=== PATIENT | male | born 1955 | race Caucasian/White ===

== ENCOUNTER 2017-10-24 14:50 | Inpatient (IN) | payer MEDICARE, MEDICAID ==
[2017-10-24] MEDS ORDERED: Aspirin 81mg Chewable Tab PO STA (14:57)
[2017-10-24] MEDS ORDERED: Morphine Sulfate 4 mg/mL 1mL Syr IV STA ×2 (15:00→17:50)
[2017-10-24] MEDS ORDERED: Morphine Sulfate 2 mg/mL 1mL Syr IV STA (15:00)
--- NOTE | 2017-10-24 15:00 | ED Physician Chart ---
ED Chief Complaint/HPI - Patient Information Date Seen:: 10/24/17 Time Seen:: 14:30 Chief Complaint:: Chest Pain History of Present Illness:: onset x one day of intermittent exertional, pressure localized sternal chest pain with dyspnea; pt denies trauma, H/As, S/T, neck pain, cough, Abd. Pain, A/N /V/D/C, fever, chills, or urinary s/s Allergies:: Allergies Allergy/AdvReac Type Severity Reaction Status Date / Time pcn Allergy Uncoded 02/27/13 16:09 shell fish Allergy Uncoded 02/27/13 16:08 torodol Allergy Uncoded 02/27/13 16:09 Historian:: Patient, EMS Review:: Nurse's Note Reviewed, EMS run form Reviewed ED Review of Systems - Review of Systems General/Constitutional: No fever, No chills, No weight loss, No weakness, No diaphoresis, No edema, No loss of appetite Skin: No skin lesions, No rash, No bruising Head: No headache, No light-headedness Eyes: No loss of vision, No pain, No diplopia ENT: No earache, No nasal drainage, No sore throat, No tinnitus Neck: No neck pain, No swelling, No thyromegaly, No stiffness, No mass noted Cardio Vascular: Chest pain, Palpitations, No PND, No orthopnea, No edema Pulmonary: SOB, Cough, No sputum, No wheezing GI: No nausea, No vomiting, No diarrhea, No pain, No melena, No hematochezia, No constipation, No hematemesis G/U: No dysuria, No frequency, No hematuria, No nacturia Musculoskeletal: No bone or joint pain, No back pain, No muscle pain Endocrine: No polyuria, No polydipsia Psychiatric: No prior psych history, No depression, No anxiety, No suicidal ideation, No homicidal ideation, No auditory hallucination, No visual hallucination Hematopoietic: No bruising, No lymphadenopathy Allergic/Immuno: No urticaria, No angioedema Neurological: No syncope, No focal symptoms, No weakness, No paresthesia, No headache, No seizure, No dizziness, No confusion, No vertigo ED Past Medical History - Past Medical History Obtainable: Yes Past Medical History: HTN, Asthma/COPD, Dyslipidemia, Other (Astrocytoma) Family History: Diabetes Melitus, HTN Social History: Smoker, Alcohol, No Drug Use, Single Surgical History: other (Back Surgery) Psychiatricy History: None Medication: Reviewed ED Physical Exam - Physical Examination General/Constitutional: Awake, Well-developed, well-nourished, Alert, No distress, GCS 15, Non-toxic appearing, Ambulatory Head: Atraumatic Eyes: Lids, conjuctiva normal, PERRL, EOMI Skin: Nl inspection, No rash, No skin lesions, No ecchymosis, Well hydrated, No lymphadenopathy ENMT: External ears, nose nl, TM canals nl, Nasal exam nl, Lips, teeth, gums nl , Oropharynx nl, Tonsils nl Neck: Nontender, Full ROM w/o pain, No JVD, No nuchal rigidity, No bruit, No mass, No stridor Respiratory: Nl effort/Exclusion, Clear to Auscultation, No Wheeze/Rhonchi/Rales Cardio Vascular: RRR, No murmur, gallop, rubs, NL S1 S2, Carotid/Femoral/Distal pulses equal bilaterally GI: No tenderness/rebounding/guarding, No organomegaly, No hernia, Normal BS's, Nondistended, No mass/bruits, No McBurney tenderness, Rectum exam nl Other GI comments:: no pulsatile masses : No CVA tenderness Extremities: No tenderness or effusion, Full ROM, normal strength in all extremities, No edema, Normal digits & nails Neuro/Psych: Alert/oriented, DTR's symmetric, Normal sensory exam, Normal motor strength, Judgement/insight normal, Mood normal, Normal gait, No focal deficits Misc: Normal back, No paraspinal tenderness ED Labs/Radiology/EKG Results - Lab Results Comments:: unremarkable - Radiology Results Comments:: CXR: COPD; NAD - EKG Interpretations EKG Time:: 14:49 Rate & Rhythm: 85; NSR Comments:: non-specific st-t changes ED Septic Shock - . Is Septic Shock (SBP<90, OR Lactate>4 mmol\L) present?: No ED Reassessment (Disposition) - Reassessment Reassessment Condition:: Improved - Diagnosis Diagnosis:: Chest Pain; Dyspnea; Unstable Angina; Angina Pectoris; COPD - Aftercare/Follow up Instructions Aftercare/Follow-Up Instructions:: Counseled pt regarding lab results/diagnosis & need follow up, Counseled pt & family regarding lab results/diagnosis & need follow up - Patient Disposition Discharge/Transfer:: Acute Care w/in this hosp Accepting Physician:: Dr. Moss Time Called:: 1614 Time Responded:: 16:15 Admitted to:: Telemetry Spoke to:: Dr. Moss Admitting Medical Physician:: Dr. Moss Condition at Disposition:: Stable, Improved
[2017-10-24 15:20] LABS: % BASOPHILS 0.8 % (0.0-2.0); % EOSINOPHILS 0.5 % (0.0-5.0); % LYMPHOCYTES 19.9 % (20.0-50.0); % MONOCYTES 7.5 % (2.0-10.0); % NEUTROPHILS 71.3 % (40.0-80.0); BASOPHILE ABSOLUTE 0.1 Th/cumm (0-0.2); HEMATOCRIT 35.9 % (41.0-60); HEMOGLOBIN 12.2 gm/dL (12-16); LYMPHOCYTE ABSOLUTE 1.3 Th/cmm (1.5-3.0); MEAN CELL VOLUME 99.5 fl (80-99); MEAN CORPUSCULAR HEMOGLOBIN 33.9 pg (26.0-30.0); MEAN PLATELET VOLUME 8.4 fl; MONOCYTE ABSOLUTE 0.5 Th/cmm (0.3-1.0); NEUTROPHILE ABSOLUTE 4.6 Th/cmm (1.8-8.0); PLATELET COUNT 226 Th/cmm (150-400); RED BLOOD COUNT 3.61 Mil/cmm (4.30-5.70); RED CELL DISTRIBUTION WIDTH 14.2 % (11.5-20.0); WHITE BLOOD COUNT 6.5 Th/cmm (4.8-10.8)
[2017-10-24] MEDS ORDERED: Morphine Sulfate 4 mg/mL 1mL Syr ONE (15:39)
[2017-10-24] MEDS ORDERED: Aspirin 81mg Chewable Tab ONE (15:39)
[2017-10-24 15:44] LABS: INR 0.94 (0.5-1.4); PROTHROMBIN TIME (TEST) 9.8 SECONDS (9.5-11.5)
[2017-10-24 15:46] LABS: ALB/GLOB RATIO 1.4 (1.0-1.8); ALBUMIN 4.2 gm/dL (4.2-5.5); ALKALINE PHOSPHATASE 44 U/L (34-104); ANION GAP 11.6 (7.0-16.0); BILIRUBIN,TOTAL 0.4 mg/dL (0.3-1.0); BUN - UREA NITROGEN 12 mg/dL (7-25); CALCIUM SERUM 9.2 mg/dL (8.6-10.3); CARBON DIOXIDE 28.3 mEq/L (21.0-31.0); CHLORIDE 101 mEq/L (98-107); CHOLESTEROL 202 mg/dL (<200); CREATININE - SERUM 0.6 mg/dL (0.7-1.3); CREATININE KINASE 56 U/L (30-223); GFR AFRICAN-AMERICAN > 60.0 ml/min (>90); GFR NON AFRICAN-AMERICAN > 60.0 ml/min; GLUCOSE 107 mg/dL (70-105); HDL -HIGH DENSITY LIPOPROTEIN 58 mg/dL (23-92); POTASSIUM SERUM 3.9 mEq/L (3.5-5.1); SGOT 16 U/L (13-39); SGPT/ALT 11 U/L (7-52); SODIUM SERUM 137 mEq/L (136-145); TOTAL PROTEIN,SERUM 7.2 gm/dL (6.0-8.3); TRIGLYCERIDES 85 mg/dL (<150)
[2017-10-24] MEDS ORDERED: HYDROmorphone 2 mg/mL 1mL Vial ONE (18:52)
[2017-10-24] MEDS: HYDROmorphone 2 mg/mL 1mL Vial IVP PRN ×2 (18:53→21:57)
[2017-10-24] MEDS ORDERED: Pneumococcal Vaccine 0.5 mL Vial IM ONE (20:26)
[2017-10-24] MEDS: Albuterol/Ipratropium Neb 3 ML AERS HHN SCH (22:26)
[2017-10-24] MEDS ORDERED: Magnesium Hydroxide (MOM) 30 mL UDC PO PRN (23:42)
[2017-10-24] MEDS ORDERED: Fleet Enema 135 mL RC PRN (23:42)
[2017-10-24] MEDS ORDERED: ACETAMINOPHEN PO PRN ×2 (23:42)
[2017-10-24] MEDS ORDERED: HYDROCODONE PO PRN ×2 (23:42)
[2017-10-24] MEDS ORDERED: Non-Formulary Item 1 EA (Morphine Sulfate [Morphine Sulfate] 30 MG) PO SCH (23:45)
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
[2017-10-25] MEDS: Albuterol/Ipratropium Neb 3 ML AERS HHN SCH ×6 (03:12→22:19)
[2017-10-25] MEDS: HYDROmorphone 2 mg/mL 1mL Vial IVP PRN ×4 (03:30→20:23)
[2017-10-25 05:25] LABS: % BASOPHILS 1.2 % (0.0-2.0); % LYMPHOCYTES 37.2 % (20.0-50.0); % MONOCYTES 11.5 % (2.0-10.0); % NEUTROPHILS 48.1 % (40.0-80.0); BASOPHILE ABSOLUTE 0.1 Th/cumm (0-0.2); EOSINOPHILE ABSOLUTE 0.1 Th/cmm (0.1-0.4); HEMATOCRIT 34.1 % (41.0-60); HEMOGLOBIN 11.6 gm/dL (12-16); MEAN CELL VOLUME 98.9 fl (80-99); MEAN CORPUSCULAR HEMOGLOBIN 33.5 pg (26.0-30.0); MEAN CORPUSCULAR HGB CONC 33.9 pg (28.0-36.0); MEAN PLATELET VOLUME 8.8 fl; MONOCYTE ABSOLUTE 0.6 Th/cmm (0.3-1.0); NEUTROPHILE ABSOLUTE 2.7 Th/cmm (1.8-8.0); PLATELET COUNT 219 Th/cmm (150-400); RED BLOOD COUNT 3.45 Mil/cmm (4.30-5.70); RED CELL DISTRIBUTION WIDTH 14.2 % (11.5-20.0); WHITE BLOOD COUNT 5.5 Th/cmm (4.8-10.8)
[2017-10-25 05:52] LABS: ANION GAP 10.1 (7.0-16.0); BUN - UREA NITROGEN 11 mg/dL (7-25); CALCIUM SERUM 8.9 mg/dL (8.6-10.3); CARBON DIOXIDE 28.5 mEq/L (21.0-31.0); CHLORIDE 103 mEq/L (98-107); CREATININE - SERUM 0.6 mg/dL (0.7-1.3); GFR AFRICAN-AMERICAN > 60.0 ml/min (>90); GFR NON AFRICAN-AMERICAN > 60.0 ml/min; GLUCOSE 90 mg/dL (70-105); POTASSIUM SERUM 3.6 mEq/L (3.5-5.1); SODIUM SERUM 138 mEq/L (136-145)
--- NOTE | 2017-10-25 08:18 | Diagnostic Imaging Report ---
CHEST X-RAY: AP view INDICATION: pain COMPARISON: None FINDINGS: Postsurgical changes of the base of the neck are noted. An azygos fissure is noted. Mild chronic lung changes are noted with no focal consolidation or effusions. Heart size is normal. The osseous structures are intact. Old left fifth and sixth rib fractures are noted. IMPRESSION: No focal consolidation identified. Mild chronic lung changes are noted. Postsurgical changes.
[2017-10-25] MEDS ORDERED: Hydrocodone/APAP 5mg/325mg Tab PO PRN (08:51)
[2017-10-25] MEDS ORDERED: Atorvastatin Calcium 10 MG TAB PO SCH (09:00)
[2017-10-25] MEDS: Aspirin 81mg Chewable Tab PO SCH (11:29)
[2017-10-25] MEDS: Multivitamin w/ Minerals Tab PO SCH (11:29)
[2017-10-26] MEDS: HYDROmorphone 2 mg/mL 1mL Vial IVP PRN ×6 (00:13→21:04)
[2017-10-26] MEDS: Albuterol/Ipratropium Neb 3 ML AERS HHN SCH ×4 (02:08→14:24)
[2017-10-26 07:34] LABS: % EOSINOPHILS 0.1 % (0.0-5.0); % LYMPHOCYTES 19.5 % (20.0-50.0); % MONOCYTES 4.7 % (2.0-10.0); % NEUTROPHILS 75.7 % (40.0-80.0); HEMATOCRIT 32.6 % (41.0-60); HEMOGLOBIN 11.1 gm/dL (12-16); MEAN CORPUSCULAR HEMOGLOBIN 34.2 pg (26.0-30.0); MONOCYTE ABSOLUTE 0.2 Th/cmm (0.3-1.0); NEUTROPHILE ABSOLUTE 3.8 Th/cmm (1.8-8.0); PLATELET COUNT 220 Th/cmm (150-400); RED BLOOD COUNT 3.23 Mil/cmm (4.30-5.70); RED CELL DISTRIBUTION WIDTH 14.3 % (11.5-20.0)
[2017-10-26 07:42] LABS: MEAN CELL VOLUME 100.7 fl (80-99)
[2017-10-26] MEDS: Aspirin 81mg Chewable Tab PO SCH (08:48)
[2017-10-26] MEDS: Multivitamin w/ Minerals Tab PO SCH (08:52)
[2017-10-26] MEDS: Hydrocodone/APAP 5mg/325mg Tab PO PRN ×2 (11:43→18:39)
--- NOTE | 2017-10-26 12:24 | Progress Notes ---
DATE: 10/25/2017 SUBJECTIVE: The patient is confused, agitated earlier today. OBJECTIVE: VITAL SIGNS: Basically stable. HEENT: Normocephalic, atraumatic. Pupils equal, round, react to light and accommodation. CHEST: Symmetrical. LUNGS: Wheezing appreciated in bilateral lower lung merritt. HEART: Normal sinus rhythm. S1, S2. ABDOMEN: Benign, soft, nontender. EXTREMITIES: No clubbing or cyanosis. Edema, bilateral 2+. NEUROLOGICAL: Unremarkable. LABORATORY DATA: Reviewed, seen from computer significant for troponin negative x3. ASSESSMENT AND PLAN: 1. Status post fall earlier today: Full precaution be emphasized and the patient educated. 2. Altered level of function due to metabolic encephalopathy, dementia. 3. Agitation: Soft restraint p.r.n. 4. Anxiety/depression/mild psychosis: Psychiatrist consultation appreciated. 5. Chest pain, improving. 6. Abdominal pain on and off. 7. Chronic pain syndrome exacerbation: Adjusting her medication as needed. 8. History of atrial fibrillation with rate controlled. 9. Seizure: Continue medication. 10. Difficulty walking: Fall precaution be emphasized. 11. Deep venous thrombosis prophylaxis. JOB# [id number]
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
[2017-10-27] MEDS: HYDROmorphone 2 mg/mL 1mL Vial IVP PRN ×6 (01:02→21:31)
--- NOTE | 2017-10-27 01:45 | Progress Notes ---
DATE: 10/26/2017 SUBJECTIVE: The patient is somewhat confused, agitated from time to time. OBJECTIVE: VITAL SIGNS: Basically stable. HEENT: Normocephalic, atraumatic. Pupils equal, round, react to light and accommodation. CHEST: Symmetrical. LUNGS: Few wheezing appreciated bilaterally. CARDIAC: Normal sinus rhythm, S1, S2. ABDOMEN: Benign, soft, nontender. EXTREMITIES: No clubbing, cyanosis or edema . NEUROLOGIC: Unremarkable. LABORATORY DATA: Reviewed as seen from the computer. ASSESSMENT AND PLAN: 1. Chronic obstructive pulmonary disease exacerbation: RT protocol and continue Solu-Medrol with tapering. The patient responded better to Solu-Medrol and also said he felt chest pain improving after Solu-Medrol given to him. 2. Chest pain, rule out acute coronary syndrome with serial cardiac enzymes activity. 3. History of atrial fibrillation with rate controlled. 4. Abdominal pain, resolving. 5. Chronic pain syndrome exacerbation: Multifactorial. We will adjust the medication as needed. 6. Seizure: Controlled. 7. Anxiety/depression and mild psychosis: Observe closely and adjust medications as needed. 8. Difficulty walking: Physical therapy. 9. Status post fall. Fall precaution be exercised. 10. DVT prophylaxis. 11. Discharge planning to [facility] in [place]. JOB# [id number]
[2017-10-27 06:49] LABS: ANION GAP 8.7 (7.0-16.0); BUN - UREA NITROGEN 24 mg/dL (7-25); CALCIUM SERUM 9.2 mg/dL (8.6-10.3); CARBON DIOXIDE 31.5 mEq/L (21.0-31.0); CHLORIDE 103 mEq/L (98-107); CREATININE - SERUM 0.7 mg/dL (0.7-1.3); GFR AFRICAN-AMERICAN > 60.0 ml/min (>90); GFR NON AFRICAN-AMERICAN > 60.0 ml/min; GLUCOSE 161 mg/dL (70-105); POTASSIUM SERUM 4.2 mEq/L (3.5-5.1); SODIUM SERUM 139 mEq/L (136-145)
[2017-10-27 07:08] LABS: % BASOPHILS 0.2 % (0.0-2.0); % EOSINOPHILS 0.1 % (0.0-5.0); % LYMPHOCYTES 7.4 % (20.0-50.0); % MONOCYTES 3.8 % (2.0-10.0); % NEUTROPHILS 88.5 % (40.0-80.0); HEMATOCRIT 33.1 % (41.0-60); HEMOGLOBIN 11.3 gm/dL (12-16); LYMPHOCYTE ABSOLUTE 0.7 Th/cmm (1.5-3.0); MEAN CELL VOLUME 100.8 fl (80-99); MEAN CORPUSCULAR HEMOGLOBIN 34.4 pg (26.0-30.0); MEAN CORPUSCULAR HGB CONC 34.1 pg (28.0-36.0); MEAN PLATELET VOLUME 9.7 fl; MONOCYTE ABSOLUTE 0.4 Th/cmm (0.3-1.0); NEUTROPHILE ABSOLUTE 8.7 Th/cmm (1.8-8.0); PLATELET COUNT 216 Th/cmm (150-400); RED BLOOD COUNT 3.28 Mil/cmm (4.30-5.70); RED CELL DISTRIBUTION WIDTH 14.5 % (11.5-20.0); WHITE BLOOD COUNT 9.8 Th/cmm (4.8-10.8)
[2017-10-27] MEDS: Albuterol/Ipratropium Neb 3 ML AERS HHN SCH ×3 (07:20→15:18)
[2017-10-27] MEDS: Multivitamin w/ Minerals Tab PO SCH (08:57)
[2017-10-27] MEDS: Aspirin 81mg Chewable Tab PO SCH (08:59)
[2017-10-27] MEDS: Atorvastatin Calcium 10 MG TAB PO SCH (21:00)
[2017-10-28] MEDS: HYDROmorphone 2 mg/mL 1mL Vial IVP PRN ×5 (01:37→22:36)
[2017-10-28] MEDS: methylPREDNISolone SS 40 mg Vial IVP SCH ×3 (05:34→20:56)
[2017-10-28 07:09] LABS: HEMATOCRIT 33.8 % (41.0-60); HEMOGLOBIN 11.6 gm/dL (12-16); MANUAL DIFF REQUIRED? YES; MEAN CELL VOLUME 99.7 fl (80-99); MEAN CORPUSCULAR HEMOGLOBIN 34.1 pg (26.0-30.0); MEAN CORPUSCULAR HGB CONC 34.2 pg (28.0-36.0); MEAN PLATELET VOLUME 9.9 fl; PLATELET COUNT 231 Th/cmm (150-400); RED BLOOD COUNT 3.39 Mil/cmm (4.30-5.70); RED CELL DISTRIBUTION WIDTH 14.1 % (11.5-20.0); WHITE BLOOD COUNT 10.5 Th/cmm (4.8-10.8)
[2017-10-28] MEDS: Albuterol/Ipratropium Neb 3 ML AERS HHN SCH ×5 (07:18→23:26)
[2017-10-28 07:39] LABS: ANION GAP 10.3 (7.0-16.0); BUN - UREA NITROGEN 20 mg/dL (7-25); CALCIUM SERUM 8.9 mg/dL (8.6-10.3); CARBON DIOXIDE 29.5 mEq/L (21.0-31.0); CHLORIDE 102 mEq/L (98-107); CREATININE - SERUM 0.6 mg/dL (0.7-1.3); GFR AFRICAN-AMERICAN > 60.0 ml/min (>90); GFR NON AFRICAN-AMERICAN > 60.0 ml/min; GLUCOSE 136 mg/dL (70-105); POTASSIUM SERUM 3.8 mEq/L (3.5-5.1); SODIUM SERUM 138 mEq/L (136-145)
[2017-10-28 08:16] LABS: BAND NEUTROPHILE 0 % (0-10); BASOPHIL 0 % (0-3); EOSINOPHIL 0 % (0-5); LYMPHOCYTE 5 % (20-50); MONOCYTE 1 % (2-10); NEUTROPHILS 94 % (40-80); TOTAL CELLS COUNTED 100
[2017-10-28] MEDS: Multivitamin w/ Minerals Tab PO SCH (09:39)
[2017-10-28] MEDS: Aspirin 81mg Chewable Tab PO SCH (09:41)
[2017-10-28] MEDS: Hydrocodone/APAP 5mg/325mg Tab PO PRN (18:42)
[2017-10-28] MEDS: Atorvastatin Calcium 10 MG TAB PO SCH (20:58)
--- NOTE | 2017-10-28 23:21 | Progress Notes ---
DATE: 10/28/2017 CHIEF COMPLAINT: Shortness of breath, severe mid back pain, and some abdominal pain. OBJECTIVE: VITAL SIGNS: Basically stable. HEENT: Normocephalic, atraumatic. Pupils equal, round, react to light and accommodation. CHEST: Symmetrical. LUNGS: Few wheezing appreciated bilaterally. HEART: Normal sinus rhythm. S1, S2. ABDOMEN: Benign, soft, nontender. EXTREMITIES: No clubbing, cyanosis, edema . NEUROLOGIC: Unremarkable. LABORATORY DATA: Reviewed as seen from the computer. ASSESSMENT AND PLAN: 1. Chronic obstructive pulmonary disease exacerbation: RT protocol and taper on Solu-Medrol. 2. Chest pain improving with Solu-Medrol according to the patient, but the patient's troponin has been negative. 3. Abdominal pain. We will observe closely. The patient is status post recent exploratory laparotomy in [facility] just a month ago. 4. Chronic pain syndrome. Adjust medications as needed. 5. Seizure: Continue medication. 6. History of atrial fibrillation with rate controlled. 7. Severe weakness: Status post fall. Fall precaution be exercised. 8. Deep venous thrombosis prophylaxis. 9. Discharge planning to [place], which is the patient's preference. JOB# [id number]
[2017-10-29] MEDS: HYDROmorphone 2 mg/mL 1mL Vial IVP PRN ×4 (01:59→15:43)
[2017-10-29] MEDS: Albuterol/Ipratropium Neb 3 ML AERS HHN SCH ×4 (03:17→15:14)
[2017-10-29 05:29] LABS: % EOSINOPHILS 0.1 % (0.0-5.0); HEMOGLOBIN 11.5 gm/dL (12-16); MONOCYTE ABSOLUTE 0.4 Th/cmm (0.3-1.0)
[2017-10-29 05:35] LABS: % BASOPHILS 0.3 % (0.0-2.0); % LYMPHOCYTES 8.2 % (20.0-50.0); % MONOCYTES 4.5 % (2.0-10.0); % NEUTROPHILS 86.9 % (40.0-80.0); HEMATOCRIT 34.1 % (41.0-60); LYMPHOCYTE ABSOLUTE 0.8 Th/cmm (1.5-3.0); MEAN CELL VOLUME 100.5 fl (80-99); MEAN CORPUSCULAR HGB CONC 33.8 pg (28.0-36.0); MEAN PLATELET VOLUME 10.1 fl; NEUTROPHILE ABSOLUTE 8.1 Th/cmm (1.8-8.0); PLATELET COUNT 216 Th/cmm (150-400); RED BLOOD COUNT 3.39 Mil/cmm (4.30-5.70); RED CELL DISTRIBUTION WIDTH 14.2 % (11.5-20.0); WHITE BLOOD COUNT 9.3 Th/cmm (4.8-10.8)
[2017-10-29] MEDS: Hydrocodone/APAP 5mg/325mg Tab PO PRN ×2 (05:38→14:40)
[2017-10-29] MEDS: Aspirin 81mg Chewable Tab PO SCH (08:59)
[2017-10-29] MEDS: Multivitamin w/ Minerals Tab PO SCH (09:03)
[2017-10-29] MEDS ORDERED: Lactulose 10 Gm/15 mL 30mL UDC PO ONE (15:24)
--- NOTE | 2017-10-29 22:22 | Progress Notes ---
DATE: 10/29/2017 PSYCHIATRIC PROGRESS NOTE SUBJECTIVE: Chart reviewed and the patient interviewed. Also discussed the patient's condition with the staff and reviewed records and labs. The patient remains in a depressed mood. The patient also is still anxious and depressed. The patient is complaining of head "in the back of my head." He denies any intention to harm himself or others. The patient also is cooperative and he is compliant with taking his medications with no side effects of Cymbalta 30 mg twice a day. ASSESSMENT: The patient is still depressed and anxious. TREATMENT PLAN: Continue to monitor his behavior and his condition closely. Also, continue to adjust the dose of Cymbalta and will continue to follow up. [facility]# [id number]
--- NOTE | 2017-10-31 03:35 | Discharge Summary ---
DATE OF DISCHARGE: 10/29/2017 FINAL DIAGNOSES: 1. Chest pain, resolved. 2. Abdominal pain, improved. 3. Chronic obstructive pulmonary disease exacerbation, improved. 4. Shortness of breath, resolved. 5. Intractable/chronic pain syndrome exacerbation, improved. 6. Seizure, controlled. ____ referral with physical therapy. HOSPITAL COURSE: The patient is a 62-year-old male admitted with chest pain, abdominal pain, and chronic pain exacerbation. He also has short of breath from COPD exacerbation. The patient received RT protocol and Solu-Medrol with tapering with significant improvement. The patient was [facility]. DISCHARGE CONDITION: Stable. DISPOSITION: [place] ____ [facility]. DISCHARGE MEDICATIONS: Continue medication from here. DIET: Cardiac, soft diet. ACTIVITY: Bed rest with physical therapy. FOLLOWUP: One week. JOB# [id number]
== END 2017-10-29 16:04 | DRG 190 ==
LOC: ER 14:50 → TELE 17:00
PROVIDERS: ADMIT Internal Medicine; ATTEND Internal Medicine
DX: J44.1 Chronic obstructive pulmonary disease with (acute) exacerbation (principal); G93.41 Metabolic encephalopathy; F33.9 Major depressive disorder, recurrent, unspecified; I48.91 Unspecified atrial fibrillation; G89.4 Chronic pain syndrome; G40.909 Epilepsy, unspecified, not intractable, without status epilepticus; F17.200 Nicotine dependence, unspecified, uncomplicated; I10 Essential (primary) hypertension; E78.5 Hyperlipidemia, unspecified; F41.9 Anxiety disorder, unspecified; R26.2 Difficulty in walking, not elsewhere classified; F03.90 Unspecified dementia, unspecified severity, without behavioral disturbance, psychotic disturbance, mood disturbance, and anxiety; M54.9 Dorsalgia, unspecified; R10.9 Unspecified abdominal pain; F29 Unspecified psychosis not due to a substance or known physiological condition; Z88.5 Allergy status to narcotic agent; Z88.0 Allergy status to penicillin; Z91.013 Allergy to seafood; Z82.49 Family history of ischemic heart disease and other diseases of the circulatory system; Z83.3 Family history of diabetes mellitus; Z87.01 Personal history of pneumonia (recurrent); Z87.440 Personal history of urinary (tract) infections; Z85.89 Personal history of malignant neoplasm of other organs and systems; Z92.21 Personal history of antineoplastic chemotherapy; Z23 Encounter for immunization
CPT/HCPCS: 36415-UA; 71045-TC; 80048-TC; 80053-TC; 80061-TC; 82140-TC; 82550-TC; 82948-90; 83880-TC; 84484-TC; 85007-TC; 85025-TC; 85027-TC; 85610-TC; 93005; 94640; 94760; 96374; C9113; J1170; J2060; J2920; J2930; Z7610

== ENCOUNTER 2018-01-21 12:25 | Inpatient (IN) | payer MEDICARE, MEDICAID ==
[~2018-01-21 12:25] MED LIST: Tuberculin 5 TU/0.1 mL UD ID ONE
[2018-01-21] MEDS ORDERED: Morphine Sulfate 4 mg/mL 1mL Syr IM STA (12:55)
[2018-01-21] MEDS ORDERED: IOHEXOL 350mgI/mL 150mL IV ONE (13:06)
--- NOTE | 2018-01-21 13:08 | ED Physician Chart ---
ED Chief Complaint/HPI - Patient Information Date Seen:: 01/21/18 Time Seen:: 12:40 Chief Complaint:: lt flank pain History of Present Illness:: 62 yr old male from [place] here for lt kidney pain and flank pain sharp stabbing for 8 days assoc wt loss 18 pounds over the last month and worsening weakness and lower extremities weakness numbness lt more than right Allergies:: Allergies Allergy/AdvReac Type Severity Reaction Status Date / Time ketorolac [From Toradol] Allergy Verified 10/24/17 15:28 pcn Allergy Uncoded 02/27/13 16:09 shell fish Allergy Uncoded 02/27/13 16:08 Vitals:: Vital Signs - 8 hr 01/21/18 12:34 Temp 97.9 F HR 116 RR 17 BP 91/57 O2 Sat % 98 ED Review of Systems - Review of Systems General/Constitutional: No fever Skin: No skin lesions Head: No headache ENT: No earache Neck: Neck pain, Other (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 on post spine area) Cardio Vascular: No chest pain Pulmonary: No SOB GI: No nausea, No vomiting, No diarrhea G/U: No dysuria Musculoskeletal: Bone or joint pain (hx of neck back pains) Psychiatric: Anxiety Hematopoietic: No bruising Allergic/Immuno: No urticaria Neurological: Focal symptoms, Weakness, Paresthesia ED Past Medical History - Past Medical History Past Medical History: Asthma/COPD, Other (astrocytoma neck lt kidney mass) Social History: Smoker Surgical History: HIP (astrocytoma neck and hip surgeries) Family Medical History - Family Member Mother History Unknown: Yes Ethnicity: Non- Living Status: Hx Family Hypertension: Yes Hx Family Diabetes: Yes ED Physical Exam - Physical Examination General/Constitutional: Well-developed, well-nourished Other Head comments:: post cervical scars Eyes: Lids, conjuctiva normal Skin: No rash ENMT: External ears, nose nl Other Neck comments:: scars posterior cervical region Respiratory: Nl effort/Exclusion Cardio Vascular: No murmur, gallop, rubs Other GI comments:: lt sided abd tenderness Other Extremities comments:: lt foot drop Neuro/Psych: Alert/oriented (paresthesia weakness legs lt worse than right) ED Assessment - Assessment General Assessment: lt flqnk pain lt kidney mass ED Septic Shock - . Is Septic Shock (SBP<90, OR Lactate>4 mmol\L) present?: No - <6hrs of presentation: Vital Signs: Vital Signs - 8 hr 01/21/18 12:34 Temp 97.9 F HR 116 RR 17 BP 91/57 O2 Sat % 98 ED Reassessment (Disposition) - Diagnosis Diagnosis:: lt flank pain kidney mass wt loss and leg paralysis - Patient Disposition Discharge/Transfer:: Acute Care w/in this hosp Condition at Disposition:: Stable
[2018-01-21 13:22] LABS: % BASOPHILS 1.3 % (0.0-2.0); % EOSINOPHILS 0.5 % (0.0-5.0); % LYMPHOCYTES 18.4 % (20.0-50.0); % MONOCYTES 6.6 % (2.0-10.0); % NEUTROPHILS 73.2 % (40.0-80.0); BASOPHILE ABSOLUTE 0.1 Th/cumm (0-0.2); HEMATOCRIT 34.7 % (41.0-60); HEMOGLOBIN 11.8 gm/dL (12-16); LYMPHOCYTE ABSOLUTE 1.8 Th/cmm (1.5-3.0); MEAN CELL VOLUME 99.9 fl (80-99); MEAN CORPUSCULAR HGB CONC 34.1 pg (28.0-36.0); MEAN PLATELET VOLUME 8.4 fl; MONOCYTE ABSOLUTE 0.6 Th/cmm (0.3-1.0); NEUTROPHILE ABSOLUTE 7.1 Th/cmm (1.8-8.0); PLATELET COUNT 236 Th/cmm (150-400); RED BLOOD COUNT 3.47 Mil/cmm (4.30-5.70); RED CELL DISTRIBUTION WIDTH 14.2 % (11.5-20.0); WHITE BLOOD COUNT 9.6 Th/cmm (4.8-10.8)
[2018-01-21] MEDS ORDERED: Morphine Sulfate 4 mg/mL 1mL Syr ONE ×2 (13:35→14:52)
[2018-01-21 13:53] LABS: ALBUMIN 3.9 gm/dL (4.2-5.5); ALKALINE PHOSPHATASE 37 U/L (34-104); ANION GAP 9.3 (7.0-16.0); BILIRUBIN,TOTAL 0.4 mg/dL (0.3-1.0); BUN - UREA NITROGEN 15 mg/dL (7-25); CALCIUM SERUM 9.1 mg/dL (8.6-10.3); CARBON DIOXIDE 27.7 mEq/L (21.0-31.0); CHLORIDE 103 mEq/L (98-107); CREATININE - SERUM 0.6 mg/dL (0.7-1.3); GFR AFRICAN-AMERICAN > 60.0 ml/min (>90); GFR NON AFRICAN-AMERICAN > 60.0 ml/min; GLUCOSE 126 mg/dL (70-105); SGOT 14 U/L (13-39); SGPT/ALT 13 U/L (7-52); SODIUM SERUM 136 mEq/L (136-145); TOTAL PROTEIN,SERUM 5.9 gm/dL (6.0-8.3)
--- NOTE | 2018-01-21 14:16 | Diagnostic Imaging Report ---
Portable chest x-ray HISTORY: Shortness of breath The heart size is normal. No acute focal pulmonary processes are seen. An azygos lobe is seen within the right upper hemithorax along with surgical clips in the apical regions of the chest. There is a mild deformity involving the posterior lateral aspect of the left rib consistent with an old fracture. IMPRESSION: 1. No acute abnormalities 2. Surgical changes
[2018-01-21] MEDS ORDERED: IOHEXOL 300mgI/mL 100 ML VIAL ONE (14:27)
[2018-01-21] MEDS ORDERED: Morphine Sulfate 4 mg/mL 1mL Syr IV STA (14:58)
[2018-01-21 15:05] LABS: URINE SOURCE CLEAN C
[2018-01-21 15:07] LABS: URINE BILIRUBIN NEGATIVE (NEGATIVE); URINE BLOOD SMALL (NEGATIVE); URINE GLUCOSE (UA) NEGATIVE (NEGATIVE); URINE KETONE NEGATIVE (NEGATIVE); URINE LEUKOCYTE ESTERASE LARGE (NEGATIVE); URINE MICROSCOPIC INDICATED? YES; URINE NITRATE POSITIVE (NEGATIVE); URINE PROTEIN TRACE mg/dL (NEGATIVE); URINE UROBILINOGEN 0.2 E.U./dL (0.2 - 1.0)
[2018-01-21 15:08] LABS: URINE CLARITY CLEAR (CLEAR); URINE COLOR YELLOW
[2018-01-21 15:13] LABS: URINE BACTERIA MANY /hpf (NONE SEEN); URINE EPITHELIAL CELLS FEW /lpf (FEW); URINE WBC 50-100 /hpf (0-5)
[2018-01-21 15:14] LABS: URINE TRIPLE PHOSPHATE CRYSTAL FEW /hpf (FEW)
[2018-01-21] MEDS ORDERED: Sodium Chloride 0.9% 1,000 ML IV ONE (16:08)
[2018-01-21] MEDS ORDERED: Levofloxacin 500mg/100mL 500 MG/100 ML BAG IV ONE ×2 (16:18→16:21)
[2018-01-21] MEDS ORDERED: Levofloxacin 750mg/150mL 750 MG/150 ML BAG IV SCH (18:44)
[2018-01-21] MEDS: Morphine Sulfate 4 mg/mL 1mL Syr IV PRN ×2 (18:50→22:50)
[2018-01-21] MEDS ORDERED: Morphine Sulfate 4 mg/mL 1mL Syr IV ONE (21:08)
[2018-01-22] MEDS: Morphine Sulfate 4 mg/mL 1mL Syr IV PRN ×3 (02:50→21:31)
--- NOTE | 2018-01-22 07:28 | Diagnostic Imaging Report ---
Ultrasound abdomen HISTORY: Abdominal pain, history of previous colonic surgery COMPARISON: Abdominal CT performed the same day Technique: Sonography of the abdomen was performed in multiple planes. FINDINGS: Exam is limited due to bowel gas. The liver demonstrates normal echogenicity. The liver measures 15.6 cm. No evidence of focal lesions. No evidence of gallstones or gallbladder wall thickening. The CBD measures 5 mm. Evaluation of the pancreas is limited due to bowel gas. The right kidney measures 10.8 x 5.2 cm demonstrating a superior pole cyst measuring 1.1 cm. The left kidney measures 10.1 x 5.8 cm. No evidence of focal lesions or hydronephrosis. The spleen was not well-visualized. IMPRESSION: Limited exam due to bowel gas and body habitus No evidence of gallstones. No evidence of hydronephrosis. 1.1 cm right renal cyst The spleen is not well-visualized.
--- NOTE | 2018-01-22 07:52 | Diagnostic Imaging Report ---
CT scan soft tissues of the neck with intravenous contrast HISTORY: Mass. Total DLP equals joint and 48 CTDI equals 8.9 Axial sections were obtained from the level of the orbits down to the level of the thoracic inlet following administration of intravenous contrast. There is preservation of normal fat planes throughout the neck. Preservation of normal margins about the major muscular bundles and about the major vascular landmarks within the neck. Several normal-sized lymph nodes are seen. The parotid glands appear normal bilaterally. The submandibular glands appear normal. No abnormality seen in the region of the epiglottis, valleculae, performed sinuses. Cervical trachea appears normal. No abnormalities are seen in the region of the vocal cords. There is a bony defect noted over the posterior elements of the lower cervical/upper thoracic spine. Surgical clip seen within the overlying soft tissues. IMPRESSION: 1. No soft tissue abnormalities. 2. Bony defect along the dorsal aspect of the cervical and thoracic spinal regions. Apparent surgical changes.
--- NOTE | 2018-01-22 07:54 | Diagnostic Imaging Report ---
CT scan of the chest with intravenous contrast HISTORY: Weight loss, para plegia Total DLP equals 168 CTDI equals 4.6 Following administration of intravenous contrast, axial sections were obtained from a level above the clavicles down to level below the diaphragm. The heart size is normal. No abnormal mediastinal masses. No abnormal hilar masses. An azygos lobe is seen within the right upper hemithorax. No acute focal pulmonary parenchymal processes are seen. No pleural fluid. Bony defect noted through the dorsal aspect/posterior elements of the thoracic spine. IMPRESSION: 1. No acute abnormalities 2. Bony defect through the dorsal aspect of the thoracic spine.
--- NOTE | 2018-01-22 07:57 | Diagnostic Imaging Report ---
CT scan abdomen and pelvis with intravenous contrast HISTORY: Paraplegia, pain Total DLP equals 315 CTDI equals 7.0 Following administration of intravenous contrast, axial sections were obtained from the xiphoid process down to the pubic symphysis. The liver exhibits a homogeneous parenchyma. No focal lesions. The spleen appears normal. No focal abnormality seen in the region of the pancreas. The proximal 0.0 cm cyst noted in the upper pole the right kidney. No hydronephrosis. The left kidney appears normal. Atherosclerotic calcification noted in the aorta. Evaluation the pelvis is limited due to artifact associated bilateral hip arthroplasties. No definite abnormal masses or abnormal fluid collections. Mildly distended stool-filled large bowel is seen. Findings may be associated with constipation. IMPRESSION: 1. Mildly distended stool-filled large bowel. The findings may be associated with constipation 2. Bilateral hip arthroplasties 3. Atherosclerotic vascular changes
[2018-01-22] MEDS ORDERED: Albuterol/Ipratropium Neb 3 ML AERS HHN PRN (09:25)
[2018-01-22] MEDS ORDERED: Fleet Enema 135 mL RC PRN (09:25)
[2018-01-22] MEDS ORDERED: Magnesium Hydroxide (MOM) 30 mL UDC PO PRN (09:27)
[2018-01-22] MEDS ORDERED: Haloperidol Lactate 5 mg/mL 1mL Vial ONE (10:58)
[2018-01-22] MEDS ORDERED: Haloperidol Lactate 5 mg/mL 1mL Vial IM STA (11:12)
[2018-01-22] MEDS ORDERED: Non-Formulary Item 1 EA (Amino Acids/Protein Hydrolys [Pro-Stat Sugar Free Liquid] 30 ML) PO SCH (14:00)
[2018-01-22] MEDS ORDERED: Diatrizoate Meglumine/Diatri 30 mL Sol PO ONE (14:36)
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
[2018-01-22] MEDS ORDERED: Levofloxacin 750mg/150mL 750 MG/150 ML BAG IV SCH (16:00)
[2018-01-22] MEDS: Atorvastatin Calcium 10 MG TAB PO SCH (21:32)
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
[2018-01-23] MEDS: D5-0.9%NS 1,000 ML IV SCH ×3 (00:42→21:40)
[2018-01-23] MEDS ORDERED: Sodium Chloride 0.9% 1,000 ML IV ONE (01:07)
[2018-01-23] MEDS ORDERED: Sodium Chloride 0.9% 1,000 ML IV SCH (01:15)
[2018-01-23] MEDS: Ipratropium Neb 0.5 mg/2.5 mL UD HHN SCH ×4 (01:20→18:36)
[2018-01-23] MEDS: metroNIDAZOLE 500mg/NS 100mL 500 MG/100 ML BAG IV SCH ×3 (02:08→11:50)
[2018-01-23] MEDS: Morphine Sulfate 4 mg/mL 1mL Syr IV PRN ×5 (03:19→15:50)
[2018-01-23 04:16] LABS: % BASOPHILS 0.3 % (0.0-2.0); % EOSINOPHILS 0.7 % (0.0-5.0); % LYMPHOCYTES 22.5 % (20.0-50.0); % MONOCYTES 10.4 % (2.0-10.0); % NEUTROPHILS 66.1 % (40.0-80.0); EOSINOPHILE ABSOLUTE 0.1 Th/cmm (0.1-0.4); HEMATOCRIT 32.1 % (41.0-60); HEMOGLOBIN 10.9 gm/dL (12-16); MEAN CELL VOLUME 99.3 fl (80-99); MEAN CORPUSCULAR HEMOGLOBIN 33.7 pg (26.0-30.0); MEAN CORPUSCULAR HGB CONC 33.9 pg (28.0-36.0); MONOCYTE ABSOLUTE 0.9 Th/cmm (0.3-1.0); NEUTROPHILE ABSOLUTE 5.8 Th/cmm (1.8-8.0); PLATELET COUNT 218 Th/cmm (150-400); RED BLOOD COUNT 3.23 Mil/cmm (4.30-5.70); RED CELL DISTRIBUTION WIDTH 13.9 % (11.5-20.0); WHITE BLOOD COUNT 8.8 Th/cmm (4.8-10.8)
[2018-01-23 04:24] LABS: TROP I 0.02 ng/mL (0.01-0.05)
[2018-01-23 04:29] LABS: INR 1.01 (0.5-1.4); PROTHROMBIN TIME (TEST) 10.5 SECONDS (9.5-11.5)
[2018-01-23 04:50] LABS: ALB/GLOB RATIO 1.9 (1.0-1.8); ALBUMIN 3.6 gm/dL (4.2-5.5); ALKALINE PHOSPHATASE 34 U/L (34-104); BILIRUBIN,TOTAL 0.7 mg/dL (0.3-1.0); BUN - UREA NITROGEN 19 mg/dL (7-25); CALCIUM SERUM 8.8 mg/dL (8.6-10.3); CARBON DIOXIDE 24.6 mEq/L (21.0-31.0); CHLORIDE 105 mEq/L (98-107); CREATININE - SERUM 0.7 mg/dL (0.7-1.3); CREATININE KINASE 279 U/L (30-223); GFR AFRICAN-AMERICAN > 60.0 ml/min (>90); GFR NON AFRICAN-AMERICAN > 60.0 ml/min; GLUCOSE 80 mg/dL (70-105); POTASSIUM SERUM 3.6 mEq/L (3.5-5.1); SGOT 21 U/L (13-39); SGPT/ALT 10 U/L (7-52); SODIUM SERUM 139 mEq/L (136-145); TOTAL PROTEIN,SERUM 5.5 gm/dL (6.0-8.3)
--- NOTE | 2018-01-23 08:03 | Diagnostic Imaging Report ---
Portable chest x-ray HISTORY: Shortness of breath, sepsis Compared to prior exam of January 21, 2018, no acute focal bony processes. The heart size appears normal. Surgical clips project over the upper and mid chest. IMPRESSION: No change from January 21, 2018. No acute focal pulmonary processes
[2018-01-23] MEDS ORDERED: IOHEXOL 300mgI/mL 100 ML VIAL IVP ONE (08:29)
[2018-01-23] MEDS ORDERED: Diatrizoate Meglumine/Diatri 30 mL Sol PO ONE (08:29)
[2018-01-23 09:04] VITALS: BP 112/62
[2018-01-23] MEDS: Aspirin 81mg Chewable Tab PO SCH (09:57)
[2018-01-23] MEDS: Multivitamin w/ Minerals Tab PO SCH (09:59)
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
[2018-01-23] MEDS ORDERED: Levofloxacin 250mg/50mL 250 MG/50 ML BAG IV SCH (13:00)
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
--- NOTE | 2018-01-23 14:08 | General Progress Note ---
Subjective - Review of Systems Service Date: 01/23/18 Events since last encounter: clinically OK CT scan, await result being checked by [facility] Objective - Results Result Diagrams: 01/23/18 03:30 01/23/18 03:30 Recent Labs: Laboratory Last Values WBC 8.8 Th/cmm (4.8-10.8) 01/23/18 03:30 RBC 3.23 Mil/cmm (4.30-5.70) L 01/23/18 03:30 Hgb 10.9 gm/dL (12-16) L 01/23/18 03:30 Hct 32.1 % (41.0-60) L 01/23/18 03:30 MCV 99.3 fl (80-99) H 01/23/18 03:30 MCH 33.7 pg (26.0-30.0) H 01/23/18 03:30 MCHC Differential 33.9 pg (28.0-36.0) 01/23/18 03:30 RDW 13.9 % (11.5-20.0) 01/23/18 03:30 Plt Count 218 Th/cmm (150-400) 01/23/18 03:30 MPV 9.0 fl 01/23/18 03:30 Neutrophils % 66.1 % (40.0-80.0) 01/23/18 03:30 Lymphocytes % 22.5 % (20.0-50.0) 01/23/18 03:30 Monocytes % 10.4 % (2.0-10.0) H 01/23/18 03:30 Eosinophils % 0.7 % (0.0-5.0) 01/23/18 03:30 Basophils % 0.3 % (0.0-2.0) 01/23/18 03:30 PT 10.5 SECONDS (9.5-11.5) 01/23/18 03:30 INR 1.01 (0.5-1.4) 01/23/18 03:30 PTT (Actin FS) 26.1 SECONDS (26.0-38.0) 01/23/18 03:30 Sodium 139 mEq/L (136-145) 01/23/18 03:30 Potassium 3.6 mEq/L (3.5-5.1) 01/23/18 03:30 Chloride 105 mEq/L (98-107) 01/23/18 03:30 Carbon Dioxide 24.6 mEq/L (21.0-31.0) 01/23/18 03:30 Anion Gap 13.0 (7.0-16.0) 01/23/18 03:30 BUN 19 mg/dL (7-25) 01/23/18 03:30 Creatinine 0.7 mg/dL (0.7-1.3) 01/23/18 03:30 Est GFR ( Amer) > 60.0 ml/min (>90) 01/23/18 03:30 Est GFR (Non-Af Amer) > 60.0 ml/min 01/23/18 03:30 BUN/Creatinine Ratio 27.1 01/23/18 03:30 Glucose 80 mg/dL (70-105) 01/23/18 03:30 Whole Bld Lactic Acid 0.52 mmol/L (0.60-1.99) L 01/23/18 03:30 Calcium 8.8 mg/dL (8.6-10.3) 01/23/18 03:30 Total Bilirubin 0.7 mg/dL (0.3-1.0) 01/23/18 03:30 AST 21 U/L (13-39) 01/23/18 03:30 ALT 10 U/L (7-52) 01/23/18 03:30 Alkaline Phosphatase 34 U/L (34-104) 01/23/18 03:30 Creatine Kinase 279 U/L (30-223) H 01/23/18 03:30 CK-MB (CK-2) 5.8 ng/mL (0.6-6.3) 01/23/18 03:30 Troponin I 0.02 ng/mL (0.01-0.05) 01/23/18 03:30 Total Protein 5.5 gm/dL (6.0-8.3) L 01/23/18 03:30 Albumin 3.6 gm/dL (4.2-5.5) L 01/23/18 03:30 Globulin 1.9 gm/dL 01/23/18 03:30 Albumin/Globulin Ratio 1.9 (1.0-1.8) H 01/23/18 03:30 Urine Source CLEAN C 01/21/18 14:59 Urine Color YELLOW 01/21/18 14:59 Urine Clarity CLEAR (CLEAR) 01/21/18 14:59 Urine pH 8.0 (4.6 - 8.0) 01/21/18 14:59 Ur Specific [place] 1.010 (1.005-1.030) 01/21/18 14:59 Urine Protein TRACE mg/dL (NEGATIVE) 01/21/18 14:59 Urine Glucose (UA) NEGATIVE mg/dL (NEGATIVE) 01/21/18 14:59 Urine Ketones NEGATIVE mg/dL (NEGATIVE) 01/21/18 14:59 Urine Blood SMALL (NEGATIVE) H 01/21/18 14:59 Urine Nitrate POSITIVE (NEGATIVE) H 01/21/18 14:59 Urine Bilirubin NEGATIVE (NEGATIVE) 01/21/18 14:59 Urine Urobilinogen 0.2 E.U./dL (0.2 - 1.0) 01/21/18 14:59 Ur Leukocyte Esterase LARGE (NEGATIVE) H 01/21/18 14:59 Urine RBC 5-10 /hpf (0-5) H 01/21/18 14:59 Urine WBC 50-100 /hpf (0-5) H 01/21/18 14:59 Ur Epithelial Cells FEW /lpf (FEW) 01/21/18 14:59 Triple Phos Crystals FEW /hpf (FEW) 01/21/18 14:59 Urine Bacteria MANY /hpf (NONE SEEN) H 01/21/18 14:59 - Physical Exam Vitals and I&O: Vital Signs Temp 98.8 F 01/23/18 13:00 Pulse 75 01/23/18 13:14 Resp 17 01/23/18 13:14 BP 130/60 01/23/18 13:00 Pulse Ox 99 01/23/18 13:14 Intake & Output 01/22/18 01/23/18 01/23/18 18:59 06:59 18:59 Intake Total 877 786 1611 Balance 051 181 8103 Weight (lbs) 57.153 kg Intake: Intake, IV Amount 100 1100 D5-0.9%Ns 1,000 ml @ 100 1000 mls/hr IV .Q10H [facility] Rx#: [id number] metroNIDAZOLE 500mg/NS 100 100 100mL 500 mg In 100 ml @ 100 mls/hr IV Q6HR [facility] Rx #:[id number] Oral 480 Other: # Voids 1 # Bowel Movements 3 Stool Characteristics Soft Brown Weight Source Bedscale Active Medications: Current Medications Acetaminophen (Tylenol) 325 mg PO Q4H PRN PRN Reason: Fever above [id number] Stop: 03/24/18 00:17 Albuterol/Ipratropium (Duoneb Neb) 3 ml HHN Q6H PRN PRN Reason: SOB/WHEEZING Stop: 03/23/18 09:24 Ascorbic Acid (Vitamin C) 500 mg PO DAILY KEILY Stop: 03/24/18 08:59 Last Admin: 01/23/18 09:56 Dose: Not Given Aspirin (Aspirin Chewable) 162 mg PO DAILY KEILY Stop: 03/24/18 08:59 Last Admin: 01/23/18 09:57 Dose: Not Given Atorvastatin Calcium (Lipitor) 20 mg PO HS KEILY; Protocol Stop: 03/23/18 20:59 Last Admin: 01/22/18 21:32 Dose: 20 mg Bisacodyl (Dulcolax 10 Mg Supp) 10 mg RC DAILY PRN PRN Reason: IF MOM INEFFECTIVE Stop: 03/23/18 09:24 Diphenhydramine HCl (Benadryl) 50 mg PO Q6H PRN PRN Reason: ITCHINESS Stop: 03/23/18 09:24 Duloxetine HCl (Cymbalta) 60 mg PO BID KEILY Stop: 03/23/18 16:59 Last Admin: 01/23/18 09:57 Dose: Not Given Gabapentin (Neurontin) 800 mg PO TID KEILY Stop: 03/23/18 13:59 Last Admin: 01/23/18 13:15 Dose: Not Given Dextrose/Sodium Chloride (D5-0.9%Ns) 1,000 mls @ 100 mls/hr IV .Q10H KEILY Stop: 03/24/18 00:29 Last Admin: 01/23/18 11:15 Dose: 100 mls/hr Norepinephrine Bitartrate 4 mg (/ Dextrose) 254 mls @ 0 mls/hr IV TITR PRN; Protocol PRN Reason: BP MAINTENANCE (PER PROTOCOL) Stop: 03/24/18 01:03 Levofloxacin (Levaquin Pb) 500 mg in 100 mls @ 100 mls/hr IV Q24HR KEILY Stop: 03/24/18 13:59 Ipratropium [place] (Atrovent Neb 0.5mg/2.5ml) 0.5 mg HHN Q6HRT [facility] Stop: 03/24/18 00:59 Last Admin: 01/23/18 13:13 Dose: 0.5 mg Isosorbide Mononitrate (Imdur) 30 mg PO DAILY [facility] Stop: 03/24/18 08:59 Lisinopril (Zestril) 10 mg PO DAILY [facility] Stop: 03/24/18 08:59 Lorazepam (Ativan) 1 mg PO BID [facility]; Protocol Stop: 03/23/18 16:59 Last Admin: 01/23/18 09:59 Dose: Not Given Lorazepam (Ativan) 1 mg IV Q4HR PRN; Protocol PRN Reason: Agitation Stop: 03/23/18 13:50 Magnesium Hydroxide (Milk Of Magnesia) 30 ml PO DAILY PRN PRN Reason: Constipation Stop: 03/23/18 09:26 Metoprolol Succinate (Toprol Xl) 25 mg PO BID [facility] Stop: 03/23/18 16:59 Last Admin: 01/23/18 09:00 Dose: Not Given Morphine Sulfate (Morphine) 4 mg IV Q4H PRN PRN Reason: Pain (Severe) Stop: 03/22/18 18:43 Last Admin: 01/23/18 11:35 Dose: 4 mg Nitroglycerin (Nitrostat) 0.4 mg SL Q5MIN PRN PRN Reason: Chest Pain Stop: 03/23/18 09:26 Ondansetron HCl (Zofran) 4 mg IV Q4H PRN PRN Reason: Nausea / Vomiting Stop: 03/22/18 18:43 Quetiapine Fumarate (Seroquel) 150 mg PO BID [facility]; Protocol Stop: 03/23/18 16:59 Last Admin: 01/23/18 09:15 Dose: Not Given Senna (Senna) 17.2 mg PO HS [facility] Stop: 03/23/18 20:59 Last Admin: 01/22/18 21:40 Dose: Not Given Sodium Phosphate (Fleet Enema) 118 ml RC Q72H PRN PRN Reason: IF DULCOLAX INEFFECTIVE Stop: 03/23/18 09:24 Assessment/Plan - Problem List Patient Problems: All Active Problems LEFT FLANK PAIN AND SWELLING (Acute)
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
[2018-01-23] MEDS: Levofloxacin 500mg/100mL 500 MG/100 ML BAG IV SCH (14:25)
--- NOTE | 2018-01-23 14:39 | History & Physical ---
ADMIT DATE: 01/21/2018 CHIEF COMPLAINT: Abdominal pain and pain all over and short of breath. HISTORY OF PRESENT ILLNESS: The patient is a 62-year-old male, admitted from the Emergency Room to telemetry floor of [facility] due to multiple complicated medical conditions. The patient had an abdominal pelvic CT scan done a week prior to being sent to the hospital here, which revealed a 3-4 cm mass in the left kidney. This worried the patient a lot and he experienced exacerbation of his chronic pain syndrome and especially felt in the left-sided flank pain and is short of breath and wheezing, etc. In the Emergency Room, workup with abdominal ultrasound and abdominal and pelvic CT scan failed to reveal the stated 3-4 cm mass done at outside, probably in [facility], but the patient does have severe urinary tract infection. His urine was positive for nitrites with large leukocyte esterase, 100 WBCs and many bacteria. Blood culture and urine culture were ordered and empiric antibiotics started. For short of breath and wheezing, RT protocol also ordered. 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 PAST SURGICAL HISTORY: Spinal surgery. MEDICATIONS: See medication reconciliation list. ALLERGIES: Penicillin. FAMILY HISTORY: Noncontributory. SOCIAL HISTORY: The patient was a heavy smoker, still smoking some time. No history of alcohol or IV drug abuse. He has a daughter, who is 33-year-old with very loose contact. The stress from his daughter has been a major depression point for the patient and he wanted to commit suicide a few months ago because of not being able to talk to his daughter. REVIEW OF SYSTEMS: As per HPI. PHYSICAL EXAMINATION: GENERAL: Well-developed female, in no acute distress. SKIN: Warm and dry. VITAL SIGNS: Basically stable. HEENT: Normocephalic, atraumatic. Pupils are equal, round, and reactive to light and accommodation. CHEST: Symmetrical. LUNGS: Few wheezing appreciated. CARDIAC: Normal sinus rhythm, S1 and S2. ABDOMEN: Benign, soft, nontender. EXTREMITIES: No clubbing, cyanosis or edema bilaterally ____. NEUROLOGIC: Unremarkable. LABORATORY DATA: Lab reviewed as seen from the computer and as mentioned above. ASSESSMENT AND PLAN: 1. Left kidney mass revealed on CT scan from outside this hospital, failed to be visualized on the CT scan done here. 2. Chronic pain syndrome exacerbation: Pain management adjusting medications. 3. Severe urinary tract infection: Urine culture and blood culture ordered. Empiric antibiotics started, which will be adjusted accordingly. 4. Short of breath: This is multifactorial, partially due to chronic obstructive pulmonary disease exacerbation and partially due to severe anxiety. 5. Chronic obstructive pulmonary disease exacerbation: RT protocol ordered. 6. Anxiety/depression/bipolar disorder. 7. History of the mild psychosis. 8. Chronic pain syndrome. 9. Difficulty with walking, multifactorial. 10. History of spinal tumor (astrocytoma). JOB# [id number]
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
[2018-01-23] MEDS ORDERED: fentaNYL Citrate 100 mcg/2mL Vial ONE ×3 (17:56→20:07)
[2018-01-23] MEDS ORDERED: Propofol **SURGERY USE ONLY** 20 ML IV ONE (18:08)
[2018-01-23] MEDS ORDERED: Neostigmine 10mg/10mL Vial ONE (18:08)
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
[2018-01-23] MEDS ORDERED: Meperidine 25 mg/mL 1mL Syr IVP PRN ×2 (20:25→20:31)
[2018-01-23] MEDS ORDERED: Meperidine 50 mg/mL 1mL Syr ONE ×2 (20:36→20:51)
[2018-01-23] MEDS ORDERED: Dexamethasone Sodium Phos 4 mg/mL Vial ONE ×2 (21:00→21:04)
[2018-01-23] MEDS ORDERED: Dexamethasone Sodium Phos 4 mg/mL Vial IVP ONE (21:06)
[2018-01-23] MEDS ORDERED: Morphine Sulfate 2 mg/mL 1mL Syr IVP ONE (21:23)
[2018-01-23] MEDS: metroNIDAZOLE 500mg/NS 100mL 500 MG in Premix Fluid 1 BAG IV SCH (21:51)
[2018-01-23] MEDS: Atorvastatin Calcium 10 MG TAB PO SCH (22:11)
[2018-01-23] MEDS: Morphine Sulfate 4 mg/mL 1mL Syr IVP PRN (22:45)
[2018-01-24 00:07] LABS: pH 7.32 (7.35-7.45)
[2018-01-24 00:08] LABS: ALLEN TEST yes
[2018-01-24] MEDS: Ipratropium Neb 0.5 mg/2.5 mL UD HHN SCH ×4 (01:44→19:07)
[2018-01-24 05:04] LABS: HEMATOCRIT 37.9 % (41.0-60); HEMOGLOBIN 12.9 gm/dL (12-16); MEAN CELL VOLUME 100.9 fl (80-99); MEAN CORPUSCULAR HEMOGLOBIN 34.3 pg (26.0-30.0); PLATELET COUNT 231 Th/cmm (150-400); RED BLOOD COUNT 3.75 Mil/cmm (4.30-5.70); RED CELL DISTRIBUTION WIDTH 14.5 % (11.5-20.0)
[2018-01-24] MEDS: Morphine Sulfate 4 mg/mL 1mL Syr IVP PRN ×4 (05:07→18:50)
[2018-01-24] MEDS: metroNIDAZOLE 500mg/NS 100mL 500 MG in Premix Fluid 1 BAG IV SCH ×3 (05:07→20:19)
[2018-01-24 05:29] LABS: ALB/GLOB RATIO 1.7 (1.0-1.8); ALBUMIN 3.4 gm/dL (4.2-5.5); ALKALINE PHOSPHATASE 33 U/L (34-104); ANION GAP 14.5 (7.0-16.0); BUN - UREA NITROGEN 16 mg/dL (7-25); CALCIUM SERUM 8.1 mg/dL (8.6-10.3); CARBON DIOXIDE 21.3 mEq/L (21.0-31.0); CHLORIDE 105 mEq/L (98-107); GFR AFRICAN-AMERICAN > 60.0 ml/min (>90); GFR NON AFRICAN-AMERICAN > 60.0 ml/min; GLUCOSE 276 mg/dL (70-105); POTASSIUM SERUM 3.8 mEq/L (3.5-5.1); SGOT 16 U/L (13-39); SGPT/ALT 9 U/L (7-52); SODIUM SERUM 137 mEq/L (136-145); TOTAL PROTEIN,SERUM 5.4 gm/dL (6.0-8.3)
[2018-01-24 05:54] LABS: BAND NEUTROPHILE 7 % (0-10); LYMPHOCYTE 2 % (20-50); NEUTROPHILS 91 % (40-80); PLATELET ESTIMATE ADEQUATE (NORMAL)
--- NOTE | 2018-01-24 08:06 | General Progress Note ---
Subjective - Review of Systems Service Date: 01/24/18 Events since last encounter: VS stable, urine out good JAMMIE drainage 200, 100 NGT labs ok ABG ordered, extubate if ok Objective - Results Result Diagrams: 01/24/18 04:55 01/24/18 04:55 Recent Labs: Laboratory Last Values WBC 17.0 Th/cmm (4.8-10.8) H 01/24/18 04:55 RBC 3.75 Mil/cmm (4.30-5.70) L 01/24/18 04:55 Hgb 12.9 gm/dL (12-16) 01/24/18 04:55 Hct 37.9 % (41.0-60) L 01/24/18 04:55 MCV 100.9 fl (80-99) H 01/24/18 04:55 MCH 34.3 pg (26.0-30.0) H 01/24/18 04:55 MCHC Differential 34.0 pg (28.0-36.0) 01/24/18 04:55 RDW 14.5 % (11.5-20.0) 01/24/18 04:55 Plt Count 231 Th/cmm (150-400) 01/24/18 04:55 MPV 9.0 fl 01/24/18 04:55 Add Manual Diff YES 01/24/18 04:55 Neutrophils % 66.1 % (40.0-80.0) 01/23/18 03:30 Band Neutrophils % 7 % (0-10) 01/24/18 04:55 Lymphocytes % 22.5 % (20.0-50.0) 01/23/18 03:30 Monocytes % 10.4 % (2.0-10.0) H 01/23/18 03:30 Eosinophils % 0.7 % (0.0-5.0) 01/23/18 03:30 Basophils % 0.3 % (0.0-2.0) 01/23/18 03:30 Neutrophils (Manual) 91 % (40-80) H 01/24/18 04:55 Lymphocytes 2 % (20-50) L 01/24/18 04:55 Platelet Estimate ADEQUATE (NORMAL) 01/24/18 04:55 PT 10.5 SECONDS (9.5-11.5) 01/23/18 03:30 INR 1.01 (0.5-1.4) 01/23/18 03:30 PTT (Actin FS) 26.1 SECONDS (26.0-38.0) 01/23/18 03:30 Specimen Source arterial 01/23/18 21:26 Sample Site right radial 01/23/18 21:26 pH 7.32 (7.35-7.45) L 01/23/18 21:26 pCO2 39.0 mmHg (35.0-45.0) 01/23/18 21:26 pO2 148.0 mmHg (80.0-100.0) H 01/23/18 21:26 HCO3 20.6 mEq/L (20.0-26.0) 01/23/18 21:26 Base Excess -5.6 mEq/L (-3.0-3.0) L 01/23/18 21:26 O2 Saturation 99.0 % (92.0-100.0) 01/23/18 21:26 Kevyn Test yes 01/23/18 21:26 Vent Rate 10 01/23/18 21:26 Inspired O2 40 01/23/18 21:26 Tidal Volume 650 01/23/18 21:26 PEEP n/a 01/23/18 21:26 Pressure (ins/psv/peep) 10 01/23/18 21:26 Critical Value abroedel 01/23/18 21:26 Sodium 137 mEq/L (136-145) 01/24/18 04:55 Potassium 3.8 mEq/L (3.5-5.1) 01/24/18 04:55 Chloride 105 mEq/L (98-107) 01/24/18 04:55 Carbon Dioxide 21.3 mEq/L (21.0-31.0) 01/24/18 04:55 Anion Gap 14.5 (7.0-16.0) 01/24/18 04:55 BUN 16 mg/dL (7-25) 01/24/18 04:55 Creatinine 1.0 mg/dL (0.7-1.3) 01/24/18 04:55 Est GFR ( Amer) > 60.0 ml/min (>90) 01/24/18 04:55 Est GFR (Non-Af Amer) > 60.0 ml/min 01/24/18 04:55 BUN/Creatinine Ratio 16.0 01/24/18 04:55 Glucose 276 mg/dL (70-105) H 01/24/18 04:55 Whole Bld Lactic Acid 0.52 mmol/L (0.60-1.99) L 01/23/18 03:30 Calcium 8.1 mg/dL (8.6-10.3) L 01/24/18 04:55 Total Bilirubin 1.0 mg/dL (0.3-1.0) 01/24/18 04:55 AST 16 U/L (13-39) 01/24/18 04:55 ALT 9 U/L (7-52) 01/24/18 04:55 Alkaline Phosphatase 33 U/L (34-104) L 01/24/18 04:55 Creatine Kinase 279 U/L (30-223) H 01/23/18 03:30 CK-MB (CK-2) 5.8 ng/mL (0.6-6.3) 01/23/18 03:30 Troponin I 0.02 ng/mL (0.01-0.05) 01/23/18 03:30 Total Protein 5.4 gm/dL (6.0-8.3) L 01/24/18 04:55 Albumin 3.4 gm/dL (4.2-5.5) L 01/24/18 04:55 Globulin 2.0 gm/dL 01/24/18 04:55 Albumin/Globulin Ratio 1.7 (1.0-1.8) 01/24/18 04:55 Urine Source CLEAN C 01/21/18 14:59 Urine Color YELLOW 01/21/18 14:59 Urine Clarity CLEAR (CLEAR) 01/21/18 14:59 Urine pH 8.0 (4.6 - 8.0) 01/21/18 14:59 Ur Specific [place] 1.010 (1.005-1.030) 01/21/18 14:59 Urine Protein TRACE mg/dL (NEGATIVE) 01/21/18 14:59 Urine Glucose (UA) NEGATIVE mg/dL (NEGATIVE) 01/21/18 14:59 Urine Ketones NEGATIVE mg/dL (NEGATIVE) 01/21/18 14:59 Urine Blood SMALL (NEGATIVE) H 01/21/18 14:59 Urine Nitrate POSITIVE (NEGATIVE) H 01/21/18 14:59 Urine Bilirubin NEGATIVE (NEGATIVE) 01/21/18 14:59 Urine Urobilinogen 0.2 E.U./dL (0.2 - 1.0) 01/21/18 14:59 Ur Leukocyte Esterase LARGE (NEGATIVE) H 01/21/18 14:59 Urine RBC 5-10 /hpf (0-5) H 01/21/18 14:59 Urine WBC 50-100 /hpf (0-5) H 01/21/18 14:59 Ur Epithelial Cells FEW /lpf (FEW) 01/21/18 14:59 Triple Phos Crystals FEW /hpf (FEW) 01/21/18 14:59 Urine Bacteria MANY /hpf (NONE SEEN) H 01/21/18 14:59 - Physical Exam Vitals and I&O: Vital Signs Temp 99.0 F 01/24/18 07:00 Pulse 102 01/24/18 07:45 Resp 10 01/24/18 07:00 BP 100/58 01/24/18 07:45 Pulse Ox 100 01/24/18 07:00 Intake & Output 01/23/18 01/24/18 01/24/18 18:59 06:59 18:59 Intake Total 1300 1200 Output Total 280 Balance 1020 1200 Weight (lbs) 57.238 kg Intake: Intake, IV Amount 1300 1200 D5-0.9%Ns 1,000 ml @ 100 1000 1000 mls/hr IV .Q10H KEILY Rx#: [id number] Levofloxacin 500mg/100mL 100 500 mg In 100 ml @ 100 mls/hr IV Q24HR KEILY Rx#: [id number] metroNIDAZOLE 500mg/NS 200 100mL 500 mg In 100 ml @ 100 mls/hr IV Q6HR KEILY Rx #:[id number] metroNIDAZOLE 500mg/NS 200 100mL 500 mg In Premix Fluid 1 bag @ 100 mls/hr IV Q8HR KEILY Rx#:[id number] Oral 0 Output: Urine 280 Other: # Bowel Movements 1 Stool Characteristics Soft Brown Weight Source Bedscale Active Medications: Current Medications Acetaminophen (Tylenol) 325 mg PO Q4H PRN PRN Reason: Fever above Q=[id number] Stop: 03/24/18 00:17 Albuterol/Ipratropium (Duoneb Neb) 3 ml HHN Q6H PRN PRN Reason: SOB/WHEEZING Stop: 03/23/18 09:24 Last Admin: 01/23/18 23:34 Dose: 3 ml Ascorbic Acid (Vitamin C) 500 mg PO DAILY [facility] Stop: 03/24/18 08:59 Last Admin: 01/23/18 09:56 Dose: Not Given Aspirin (Aspirin Chewable) 162 mg PO DAILY KEILY Stop: 03/24/18 08:59 Last Admin: 01/23/18 09:57 Dose: Not Given Atorvastatin Calcium (Lipitor) 20 mg PO HS KEILY; Protocol Stop: 03/23/18 20:59 Last Admin: 01/23/18 22:11 Dose: Not Given Bisacodyl (Dulcolax 10 Mg Supp) 10 mg RC DAILY PRN PRN Reason: IF MOM INEFFECTIVE Stop: 03/23/18 09:24 Diphenhydramine HCl (Benadryl) 50 mg PO Q6H PRN PRN Reason: ITCHINESS Stop: 03/23/18 09:24 Duloxetine HCl (Cymbalta) 60 mg PO BID KEILY Stop: 03/23/18 16:59 Last Admin: 01/23/18 16:08 Dose: Not Given Gabapentin (Neurontin) 800 mg PO TID KEILY Stop: 03/23/18 13:59 Last Admin: 01/23/18 22:11 Dose: Not Given Dextrose/Sodium Chloride (D5-0.9%Ns) 1,000 mls @ 100 mls/hr IV .Q10H KEILY Stop: 03/24/18 00:29 Last Admin: 01/23/18 21:40 Dose: 100 mls/hr Norepinephrine Bitartrate 4 mg (/ Dextrose) 254 mls @ 0 mls/hr IV TITR PRN; Protocol PRN Reason: BP MAINTENANCE (PER PROTOCOL) Stop: 03/24/18 01:03 Levofloxacin (Levaquin Pb) 500 mg in 100 mls @ 100 mls/hr IV Q24HR KEILY Stop: 03/24/18 13:59 Last Infusion: 01/23/18 15:25 Dose: Infused Metronidazole 500 mg/ (Miscellaneous) 100 mls @ 100 mls/hr IV Q8HR KEILY Stop: 03/24/18 20:59 Last Infusion: 01/24/18 06:07 Dose: Infused Propofol (Diprivan) 1,000 mg in 100 mls @ 0 mls/hr IV TITR KEILY; Protocol Stop: 03/24/18 20:44 Last Admin: 01/24/18 03:49 Dose: 20 mcg/kg/min, 6.869 mls/hr Ipratropium [place] (Atrovent Neb 0.5mg/2.5ml) 0.5 mg HHN Q6HRT [facility] Stop: 03/24/18 00:59 Last Admin: 01/24/18 06:38 Dose: 0.5 mg Isosorbide Mononitrate (Imdur) 30 mg PO DAILY [facility] Stop: 03/24/18 08:59 Last Admin: 01/23/18 09:10 Dose: Not Given Ketorolac Tromethamine (Toradol) 30 mg IV Q6H [facility] Stop: 03/25/18 08:14 Lisinopril (Zestril) 10 mg PO DAILY [facility] Stop: 03/24/18 08:59 Last Admin: 01/23/18 09:15 Dose: Not Given Lorazepam (Ativan) 1 mg PO BID [facility]; Protocol Stop: 03/23/18 16:59 Last Admin: 01/23/18 16:09 Dose: Not Given Lorazepam (Ativan) 1 mg IV Q4HR PRN; Protocol PRN Reason: Agitation Stop: 03/23/18 13:50 Magnesium Hydroxide (Milk Of Magnesia) 30 ml PO DAILY PRN PRN Reason: Constipation Stop: 03/23/18 09:26 Metoclopramide HCl (Reglan) 10 mg IVP Q8HR [facility] Stop: 03/25/18 12:59 Metoprolol Succinate (Toprol Xl) 25 mg PO BID [facility] Stop: 03/23/18 16:59 Last Admin: 01/23/18 16:09 Dose: Not Given Morphine Sulfate (Morphine) 4 mg IVP Q4H PRN PRN Reason: Pain (Severe) Stop: 03/24/18 21:33 Last Admin: 01/24/18 05:07 Dose: 4 mg Nitroglycerin (Nitrostat) 0.4 mg SL Q5MIN PRN PRN Reason: Chest Pain Stop: 03/23/18 09:26 Ondansetron HCl (Zofran) 4 mg IV Q4H PRN PRN Reason: Nausea / Vomiting Stop: 03/22/18 18:43 Quetiapine Fumarate (Seroquel) 150 mg PO BID [facility]; Protocol Stop: 03/23/18 16:59 Last Admin: 01/23/18 16:09 Dose: Not Given Senna (Senna) 17.2 mg PO HS KEILY Stop: 03/23/18 20:59 Last Admin: 01/23/18 22:12 Dose: Not Given Sodium Phosphate (Fleet Enema) 118 ml RC Q72H PRN PRN Reason: IF DULCOLAX INEFFECTIVE Stop: 03/23/18 09:24 Assessment/Plan - Problem List Patient Problems: All Active Problems LEFT FLANK PAIN AND SWELLING (Acute)
--- NOTE | 2018-01-24 08:09 | Diagnostic Imaging Report ---
CHEST X-RAY: AP view INDICATION: NG tube and ET tube placement COMPARISON: Chest x-ray on earlier the same day FINDINGS: Endotracheal tube is seen with tip 5.4 cm of alin. NG tube is within the stomach. The right lung base is incompletely visualized. No focal consolidation, pleural effusions or evidence of pneumothorax. Postsurgical changes are seen projecting along the left upper thorax. There may be a hiatal hernia. There appears to be a surgical drain of the left upper quadrant. IMPRESSION: Interval intubation with tip 5.4 cm above the Alin. NG tube within the stomach. There appears to be a surgical drain of the left upper quadrant, correlate clinically. No focal consolidation identified.
[2018-01-24] MEDS: Aspirin 81mg Chewable Tab PO SCH (09:00)
[2018-01-24] MEDS: Multivitamin w/ Minerals Tab PO SCH (09:00)
[2018-01-24 09:30] LABS: pH 7.42 (7.35-7.45)
[2018-01-24 09:31] LABS: ALLEN TEST YES
[2018-01-24] MEDS: D5-0.9%NS 1,000 ML IV SCH ×3 (09:59→22:11)
[2018-01-24] MEDS ORDERED: Triple Antibiotic 0.94 gm Pkt TP ONE (10:00)
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
[2018-01-24 12:37] LABS: pH 7.43 (7.35-7.45)
[2018-01-24] MEDS: Levofloxacin 500mg/100mL 500 MG/100 ML BAG IV SCH (13:14)
[2018-01-24] MEDS: Metoclopramide 5 mg/mL 2mL Vial IVP SCH ×2 (13:15→20:19)
[2018-01-24] MEDS: Metoprolol tartrate 1 mg/ml 5mL Amp IV PRN ×2 (14:44→20:30)
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
[2018-01-24] MEDS: Atorvastatin Calcium 10 MG TAB PO SCH (20:28)
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
[2018-01-25] MEDS: Ipratropium Neb 0.5 mg/2.5 mL UD HHN SCH ×4 (00:52→19:05)
[2018-01-25] MEDS: Morphine Sulfate 4 mg/mL 1mL Syr IVP PRN ×4 (03:22→19:50)
[2018-01-25] MEDS: Metoprolol tartrate 1 mg/ml 5mL Amp IV PRN ×3 (03:33→21:22)
[2018-01-25] MEDS: metroNIDAZOLE 500mg/NS 100mL 500 MG in Premix Fluid 1 BAG IV SCH ×3 (04:36→20:25)
[2018-01-25] MEDS: Metoclopramide 5 mg/mL 2mL Vial IVP SCH ×3 (04:36→20:25)
[2018-01-25 05:06] LABS: % EOSINOPHILS 0.2 % (0.0-5.0); % LYMPHOCYTES 11.2 % (20.0-50.0); % MONOCYTES 8.8 % (2.0-10.0); % NEUTROPHILS 79.8 % (40.0-80.0); HEMOGLOBIN 9.4 gm/dL (12-16); LYMPHOCYTE ABSOLUTE 1.7 Th/cmm (1.5-3.0); MEAN CELL VOLUME 99.8 fl (80-99); MEAN CORPUSCULAR HEMOGLOBIN 33.6 pg (26.0-30.0); MEAN CORPUSCULAR HGB CONC 33.7 pg (28.0-36.0); MEAN PLATELET VOLUME 9.6 fl; MONOCYTE ABSOLUTE 1.3 Th/cmm (0.3-1.0); NEUTROPHILE ABSOLUTE 12.3 Th/cmm (1.8-8.0); PLATELET COUNT 181 Th/cmm (150-400); RED CELL DISTRIBUTION WIDTH 14.1 % (11.5-20.0)
[2018-01-25 05:28] LABS: WHITE BLOOD COUNT 15.3 Th/cmm (4.8-10.8)
[2018-01-25 05:39] LABS: ALB/GLOB RATIO 1.5 (1.0-1.8); ALBUMIN 2.9 gm/dL (4.2-5.5); ALKALINE PHOSPHATASE 31 U/L (34-104); ANION GAP 10.8 (7.0-16.0); BILIRUBIN,TOTAL 0.6 mg/dL (0.3-1.0); BUN - UREA NITROGEN 9 mg/dL (7-25); CARBON DIOXIDE 23.6 mEq/L (21.0-31.0); CHLORIDE 111 mEq/L (98-107); CREATININE - SERUM 0.6 mg/dL (0.7-1.3); GFR AFRICAN-AMERICAN > 60.0 ml/min (>90); GFR NON AFRICAN-AMERICAN > 60.0 ml/min; POTASSIUM SERUM 3.4 mEq/L (3.5-5.1); SGOT 17 U/L (13-39); SGPT/ALT 8 U/L (7-52); SODIUM SERUM 142 mEq/L (136-145); TOTAL PROTEIN,SERUM 4.8 gm/dL (6.0-8.3)
[2018-01-25 05:47] LABS: GLUCOSE 143 mg/dL (70-105)
[2018-01-25] MEDS: D5-0.9%NS 1,000 ML IV SCH ×3 (09:26→23:00)
[2018-01-25] MEDS: Aspirin 81mg Chewable Tab PO SCH (09:29)
[2018-01-25] MEDS: Multivitamin w/ Minerals Tab PO SCH (09:30)
--- NOTE | 2018-01-25 11:53 | General Progress Note ---
Subjective - Review of Systems Service Date: 01/25/18 Events since last encounter: extubated, seen by Dr. Elder, seems very rational today labs ok minimal JAMMIE drainage Objective - Results Result Diagrams: 01/25/18 04:45 01/25/18 04:45 Recent Labs: Laboratory Last Values WBC 15.3 Th/cmm (4.8-10.8) H 01/25/18 04:45 RBC 2.80 Mil/cmm (4.30-5.70) L 01/25/18 04:45 Hgb 9.4 gm/dL (12-16) L D 01/25/18 04:45 Hct 28.0 % (41.0-60) L D 01/25/18 04:45 MCV 99.8 fl (80-99) H 01/25/18 04:45 MCH 33.6 pg (26.0-30.0) H 01/25/18 04:45 MCHC Differential 33.7 pg (28.0-36.0) 01/25/18 04:45 RDW 14.1 % (11.5-20.0) 01/25/18 04:45 Plt Count 181 Th/cmm (150-400) D 01/25/18 04:45 MPV 9.6 fl 01/25/18 04:45 Add Manual Diff YES 01/24/18 04:55 Neutrophils % 79.8 % (40.0-80.0) 01/25/18 04:45 Band Neutrophils % 7 % (0-10) 01/24/18 04:55 Lymphocytes % 11.2 % (20.0-50.0) L 01/25/18 04:45 Monocytes % 8.8 % (2.0-10.0) 01/25/18 04:45 Eosinophils % 0.2 % (0.0-5.0) 01/25/18 04:45 Basophils % 0.0 % (0.0-2.0) 01/25/18 04:45 Neutrophils (Manual) 91 % (40-80) H 01/24/18 04:55 Lymphocytes 2 % (20-50) L 01/24/18 04:55 Platelet Estimate ADEQUATE (NORMAL) 01/24/18 04:55 PT 10.5 SECONDS (9.5-11.5) 01/23/18 03:30 INR 1.01 (0.5-1.4) 01/23/18 03:30 PTT (Actin FS) 26.1 SECONDS (26.0-38.0) 01/23/18 03:30 Specimen Source Arterial 01/24/18 12:30 Sample Site RB 01/24/18 12:30 pH 7.43 (7.35-7.45) 01/24/18 12:30 pCO2 38.0 mmHg (35.0-45.0) 01/24/18 12:30 pO2 170.0 mmHg (80.0-100.0) H 01/24/18 12:30 HCO3 25.8 mEq/L (20.0-26.0) 01/24/18 12:30 Base Excess 1.0 mEq/L (-3.0-3.0) 01/24/18 12:30 O2 Saturation 100.0 % (92.0-100.0) 01/24/18 12:30 Kevyn Test NA 01/24/18 12:30 Vent Rate NA 01/24/18 12:30 Inspired O2 40 01/24/18 12:30 Tidal Volume NA 01/24/18 12:30 PEEP NA 01/24/18 12:30 Pressure (ins/psv/peep) NA 01/24/18 12:30 Critical Value E.WILKINS 01/24/18 12:30 Sodium 142 mEq/L (136-145) 01/25/18 04:45 Potassium 3.4 mEq/L (3.5-5.1) L 01/25/18 04:45 Chloride 111 mEq/L (98-107) H 01/25/18 04:45 Carbon Dioxide 23.6 mEq/L (21.0-31.0) 01/25/18 04:45 Anion Gap 10.8 (7.0-16.0) 01/25/18 04:45 BUN 9 mg/dL (7-25) 01/25/18 04:45 Creatinine 0.6 mg/dL (0.7-1.3) L 01/25/18 04:45 Est GFR ( Amer) > 60.0 ml/min (>90) 01/25/18 04:45 Est GFR (Non-Af Amer) > 60.0 ml/min 01/25/18 04:45 BUN/Creatinine Ratio 15.0 01/25/18 04:45 Glucose 143 mg/dL (70-105) H D 01/25/18 04:45 Whole Bld Lactic Acid 0.52 mmol/L (0.60-1.99) L 01/23/18 03:30 Calcium 8.0 mg/dL (8.6-10.3) L 01/25/18 04:45 Total Bilirubin 0.6 mg/dL (0.3-1.0) 01/25/18 04:45 AST 17 U/L (13-39) 01/25/18 04:45 ALT 8 U/L (7-52) 01/25/18 04:45 Alkaline Phosphatase 31 U/L (34-104) L 01/25/18 04:45 Creatine Kinase 279 U/L (30-223) H 01/23/18 03:30 CK-MB (CK-2) 5.8 ng/mL (0.6-6.3) 01/23/18 03:30 Troponin I 0.02 ng/mL (0.01-0.05) 01/23/18 03:30 Total Protein 4.8 gm/dL (6.0-8.3) L 01/25/18 04:45 Albumin 2.9 gm/dL (4.2-5.5) L 01/25/18 04:45 Globulin 1.9 gm/dL 01/25/18 04:45 Albumin/Globulin Ratio 1.5 (1.0-1.8) 01/25/18 04:45 Urine Source CLEAN C 01/21/18 14:59 Urine Color YELLOW 01/21/18 14:59 Urine Clarity CLEAR (CLEAR) 01/21/18 14:59 Urine pH 8.0 (4.6 - 8.0) 01/21/18 14:59 Ur Specific [place] 1.010 (1.005-1.030) 01/21/18 14:59 Urine Protein TRACE mg/dL (NEGATIVE) 01/21/18 14:59 Urine Glucose (UA) NEGATIVE mg/dL (NEGATIVE) 01/21/18 14:59 Urine Ketones NEGATIVE mg/dL (NEGATIVE) 01/21/18 14:59 Urine Blood SMALL (NEGATIVE) H 01/21/18 14:59 Urine Nitrate POSITIVE (NEGATIVE) H 01/21/18 14:59 Urine Bilirubin NEGATIVE (NEGATIVE) 01/21/18 14:59 Urine Urobilinogen 0.2 E.U./dL (0.2 - 1.0) 01/21/18 14:59 Ur Leukocyte Esterase LARGE (NEGATIVE) H 01/21/18 14:59 Urine RBC 5-10 /hpf (0-5) H 01/21/18 14:59 Urine WBC 50-100 /hpf (0-5) H 01/21/18 14:59 Ur Epithelial Cells FEW /lpf (FEW) 01/21/18 14:59 Triple Phos Crystals FEW /hpf (FEW) 01/21/18 14:59 Urine Bacteria MANY /hpf (NONE SEEN) H 01/21/18 14:59 - Physical Exam Vitals and I&O: Vital Signs Temp 98.6 F 01/25/18 08:00 Pulse 112 01/25/18 10:00 Resp 14 01/25/18 10:00 BP 157/54 01/25/18 10:00 Pulse Ox 100 01/25/18 10:00 Intake & Output 01/24/18 01/25/18 01/25/18 18:59 06:59 18:59 Intake Total 2133.045 1311.667 218.333 Output Total 1400 Balance 2133.045 -88.333 218.333 Weight (lbs) 57.198 kg Intake: Intake, IV Amount 2133.045 1311.667 218.333 D5-0.9%Ns 1,000 ml @ 100 1890 1111.667 218.333 mls/hr IV .Q10H [facility] Rx#: [id number] Levofloxacin 500mg/100mL 100 500 mg In 100 ml @ 100 mls/hr IV Q24HR [facility] Rx#: [id number] Propofol 1,000 mg In 100 43.045 ml @ Per Protocol IV TITR [facility] Rx#:[id number] metroNIDAZOLE 500mg/NS 100 200 100mL 500 mg In Premix Fluid 1 bag @ 100 mls/hr IV Q8HR [facility] Rx#:[id number] Output: Gastric Drainage 80 Drainage 220 Left Lower Abdomen 220 Urine 1100 Other: # Bowel Movements 0 Weight Source Bedscale Active Medications: Current Medications Acetaminophen (Tylenol 650mg Supp) 650 mg RC Q4H PRN PRN Reason: Fever > 100.5 Stop: 10/29/18 20:31 Last Admin: 01/24/18 20:43 Dose: 650 mg Albuterol/Ipratropium (Duoneb Neb) 3 ml HHN Q6H PRN PRN Reason: SOB/WHEEZING Stop: 03/23/18 09:24 Last Admin: 01/23/18 23:34 Dose: 3 ml Ascorbic Acid (Vitamin C) 500 mg PO DAILY [facility] Stop: 03/24/18 08:59 Last Admin: 01/25/18 09:29 Dose: Not Given Aspirin (Aspirin Chewable) 162 mg PO DAILY [facility] Stop: 03/24/18 08:59 Last Admin: 01/25/18 09:29 Dose: Not Given Atorvastatin Calcium (Lipitor) 20 mg PO HS [facility]; Protocol Stop: 03/23/18 20:59 Last Admin: 01/24/18 20:28 Dose: Not Given Bisacodyl (Dulcolax 10 Mg Supp) 10 mg RC DAILY PRN PRN Reason: IF MOM INEFFECTIVE Stop: 03/23/18 09:24 Diphenhydramine HCl (Benadryl) 50 mg PO Q6H PRN PRN Reason: ITCHINESS Stop: 03/23/18 09:24 Duloxetine HCl (Cymbalta) 60 mg PO BID [facility] Stop: 03/23/18 16:59 Last Admin: 01/25/18 09:29 Dose: Not Given Gabapentin (Neurontin) 800 mg PO TID [facility] Stop: 03/23/18 13:59 Last Admin: 01/25/18 09:29 Dose: Not Given Dextrose/Sodium Chloride (D5-0.9%Ns) 1,000 mls @ 100 mls/hr IV .Q10H [facility] Stop: 03/24/18 00:29 Last Admin: 01/25/18 09:26 Dose: 100 mls/hr Norepinephrine Bitartrate 4 mg (/ Dextrose) 254 mls @ 0 mls/hr IV TITR PRN; Protocol PRN Reason: BP MAINTENANCE (PER PROTOCOL) Stop: 03/24/18 01:03 Levofloxacin (Levaquin Pb) 500 mg in 100 mls @ 100 mls/hr IV Q24HR [facility] Stop: 03/24/18 13:59 Last Infusion: 01/24/18 14:15 Dose: Infused Metronidazole 500 mg/ (Miscellaneous) 100 mls @ 100 mls/hr IV Q8HR [facility] Stop: 03/24/18 20:59 Last Infusion: 01/25/18 05:36 Dose: Infused Propofol (Diprivan) 1,000 mg in 100 mls @ 0 mls/hr IV TITR [facility]; Protocol Stop: 03/24/18 20:44 Last Titration: 01/24/18 10:40 Dose: 0 mcg/kg/min, 0 mls/hr Ipratropium [place] (Atrovent Neb 0.5mg/2.5ml) 0.5 mg HHN Q6HRT [facility] Stop: 03/24/18 00:59 Last Admin: 01/25/18 07:33 Dose: 0.5 mg Isosorbide Mononitrate (Imdur) 30 mg PO DAILY [facility] Stop: 03/24/18 08:59 Last Admin: 01/25/18 09:29 Dose: Not Given Lisinopril (Zestril) 10 mg PO DAILY [facility] Stop: 03/24/18 08:59 Last Admin: 01/25/18 09:30 Dose: Not Given Lorazepam (Ativan) 1 mg PO BID [facility]; Protocol Stop: 03/23/18 16:59 Last Admin: 01/25/18 09:30 Dose: Not Given Lorazepam (Ativan) 1 mg IV Q4HR PRN; Protocol PRN Reason: Agitation Stop: 03/23/18 13:50 Last Admin: 01/25/18 11:32 Dose: 1 mg Magnesium Hydroxide (Milk Of Magnesia) 30 ml PO DAILY PRN PRN Reason: Constipation Stop: 03/23/18 09:26 Metoclopramide HCl (Reglan) 10 mg IVP Q8HR [facility] Stop: 03/25/18 12:59 Last Admin: 01/25/18 04:36 Dose: 10 mg Metoprolol Succinate (Toprol Xl) 25 mg PO BID [facility] Stop: 03/23/18 16:59 Last Admin: 01/25/18 09:30 Dose: Not Given Metoprolol Tartrate (Lopressor) 5 mg IV Q4HR PRN PRN Reason: HR >120 Stop: 03/25/18 15:59 Last Admin: 01/25/18 07:56 Dose: 5 mg Morphine Sulfate (Morphine) 4 mg IVP Q4H PRN PRN Reason: Pain (Severe) Stop: 03/24/18 21:33 Last Admin: 01/25/18 07:56 Dose: 4 mg Nitroglycerin (Nitrostat) 0.4 mg SL Q5MIN PRN PRN Reason: Chest Pain Stop: 03/23/18 09:26 Ondansetron HCl (Zofran) 4 mg IV Q4H PRN PRN Reason: Nausea / Vomiting Stop: 03/22/18 18:43 Last Admin: 01/25/18 07:56 Dose: 4 mg Quetiapine Fumarate (Seroquel) 150 mg PO BID [facility]; Protocol Stop: 03/23/18 16:59 Last Admin: 01/25/18 09:31 Dose: Not Given Senna (Senna) 17.2 mg PO HS [facility] Stop: 03/23/18 20:59 Last Admin: 01/24/18 20:28 Dose: Not Given Sodium Phosphate (Fleet Enema) 118 ml RC Q72H PRN PRN Reason: IF DULCOLAX INEFFECTIVE Stop: 03/23/18 09:24 - Procedures Procedures: Procedures Procedure Code Date EXCISION OF TRANSVERSE COLON, OPEN APPROACH [id number] 01/21/18 RELEASE OMENTUM, OPEN APPROACH [id number] 01/21/18 Assessment/Plan - Problem List Patient Problems: All Active Problems LEFT FLANK PAIN AND SWELLING (Acute)
[2018-01-25] MEDS: Levofloxacin 500mg/100mL 500 MG/100 ML BAG IV SCH (14:48)
[2018-01-25] MEDS ORDERED: KCL 20mEq/100mL Premix 20 MEQ/100 ML PIGGYBACK IV ONE (17:26)
[2018-01-25 20:10] LABS: A1C % 6.3 % (4.0-6.0)
[2018-01-25] MEDS: Atorvastatin Calcium 10 MG TAB PO SCH (20:20)
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
[2018-01-26] MEDS: Morphine Sulfate 4 mg/mL 1mL Syr IVP PRN ×5 (00:25→21:17)
[2018-01-26] MEDS: Ipratropium Neb 0.5 mg/2.5 mL UD HHN SCH ×4 (00:32→18:55)
[2018-01-26] MEDS: Metoclopramide 5 mg/mL 2mL Vial IVP SCH ×3 (04:22→20:05)
[2018-01-26] MEDS: metroNIDAZOLE 500mg/NS 100mL 500 MG in Premix Fluid 1 BAG IV SCH ×3 (04:22→20:06)
[2018-01-26 06:05] LABS: % EOSINOPHILS 0.6 % (0.0-5.0); % MONOCYTES 8.8 % (2.0-10.0); % NEUTROPHILS 75.6 % (40.0-80.0); EOSINOPHILE ABSOLUTE 0.1 Th/cmm (0.1-0.4); HEMATOCRIT 28.1 % (41.0-60); HEMOGLOBIN 9.7 gm/dL (12-16); LYMPHOCYTE ABSOLUTE 1.8 Th/cmm (1.5-3.0); MEAN CELL VOLUME 100.4 fl (80-99); MEAN CORPUSCULAR HEMOGLOBIN 34.6 pg (26.0-30.0); MEAN CORPUSCULAR HGB CONC 34.5 pg (28.0-36.0); MEAN PLATELET VOLUME 9.3 fl; MONOCYTE ABSOLUTE 1.1 Th/cmm (0.3-1.0); NEUTROPHILE ABSOLUTE 9.3 Th/cmm (1.8-8.0); PLATELET COUNT 183 Th/cmm (150-400); RED CELL DISTRIBUTION WIDTH 13.9 % (11.5-20.0); WHITE BLOOD COUNT 12.3 Th/cmm (4.8-10.8)
[2018-01-26 06:21] LABS: ALB/GLOB RATIO 1.6 (1.0-1.8); ALBUMIN 3.1 gm/dL (4.2-5.5); ALKALINE PHOSPHATASE 32 U/L (34-104); ANION GAP 8.8 (7.0-16.0); BILIRUBIN,TOTAL 0.7 mg/dL (0.3-1.0); BUN - UREA NITROGEN 4 mg/dL (7-25); CALCIUM SERUM 8.4 mg/dL (8.6-10.3); CARBON DIOXIDE 28.2 mEq/L (21.0-31.0); CHLORIDE 109 mEq/L (98-107); CREATININE - SERUM 0.5 mg/dL (0.7-1.3); GFR AFRICAN-AMERICAN > 60.0 ml/min (>90); GFR NON AFRICAN-AMERICAN > 60.0 ml/min; GLUCOSE 120 mg/dL (70-105); SGOT 15 U/L (13-39); SGPT/ALT 9 U/L (7-52); SODIUM SERUM 143 mEq/L (136-145)
[2018-01-26] MEDS ORDERED: KCL 20mEq/100mL Premix 20 MEQ/100 ML PIGGYBACK IV SCH (07:08)
[2018-01-26] MEDS: KCL 20mEq/100mL Premix 20 MEQ/100 ML PIGGYBACK IV SCH ×2 (08:25→11:12)
[2018-01-26] MEDS: Aspirin 81mg Chewable Tab PO SCH (08:32)
[2018-01-26] MEDS: Multivitamin w/ Minerals Tab PO SCH (08:34)
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
[2018-01-26] MEDS: Metoprolol tartrate 1 mg/ml 5mL Amp IV PRN (13:48)
[2018-01-26] MEDS: Levofloxacin 500mg/100mL 500 MG/100 ML BAG IV SCH (14:04)
[2018-01-26] MEDS: Diltiazem 30 mg Tab PO SCH ×2 (17:09→23:07)
[2018-01-26] MEDS: Atorvastatin Calcium 10 MG TAB PO SCH (20:06)
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
[2018-01-27] MEDS: Ipratropium Neb 0.5 mg/2.5 mL UD HHN SCH ×4 (01:32→19:00)
[2018-01-27] MEDS: Metoclopramide 5 mg/mL 2mL Vial IVP SCH ×3 (04:42→20:31)
[2018-01-27] MEDS: metroNIDAZOLE 500mg/NS 100mL 500 MG in Premix Fluid 1 BAG IV SCH ×3 (04:42→20:30)
[2018-01-27 04:54] LABS: % BASOPHILS 0.1 % (0.0-2.0); % EOSINOPHILS 2.3 % (0.0-5.0); % LYMPHOCYTES 19.1 % (20.0-50.0); % MONOCYTES 8.9 % (2.0-10.0); % NEUTROPHILS 69.6 % (40.0-80.0); EOSINOPHILE ABSOLUTE 0.2 Th/cmm (0.1-0.4); HEMATOCRIT 25.7 % (41.0-60); HEMOGLOBIN 8.7 gm/dL (12-16); LYMPHOCYTE ABSOLUTE 1.9 Th/cmm (1.5-3.0); MEAN CELL VOLUME 100.1 fl (80-99); MEAN CORPUSCULAR HEMOGLOBIN 33.7 pg (26.0-30.0); MEAN CORPUSCULAR HGB CONC 33.7 pg (28.0-36.0); MEAN PLATELET VOLUME 8.8 fl; MONOCYTE ABSOLUTE 0.9 Th/cmm (0.3-1.0); PLATELET COUNT 194 Th/cmm (150-400); RED BLOOD COUNT 2.57 Mil/cmm (4.30-5.70); RED CELL DISTRIBUTION WIDTH 13.5 % (11.5-20.0)
[2018-01-27 05:09] LABS: ALB/GLOB RATIO 1.4 (1.0-1.8); ALBUMIN 2.5 gm/dL (4.2-5.5); ALKALINE PHOSPHATASE 31 U/L (34-104); ANION GAP 7.9 (7.0-16.0); BILIRUBIN,TOTAL 0.5 mg/dL (0.3-1.0); BUN - UREA NITROGEN 3 mg/dL (7-25); CALCIUM SERUM 7.8 mg/dL (8.6-10.3); CARBON DIOXIDE 27.9 mEq/L (21.0-31.0); CHLORIDE 100 mEq/L (98-107); CREATININE - SERUM 0.4 mg/dL (0.7-1.3); GFR AFRICAN-AMERICAN > 60.0 ml/min (>90); GFR NON AFRICAN-AMERICAN > 60.0 ml/min; GLUCOSE 145 mg/dL (70-105); MAGNESIUM 1.4 mg/dL (1.9-2.7); PHOSPHOROUS 2.1 mg/dL (2.5-5.0); SGOT 12 U/L (13-39); SGPT/ALT 6 U/L (7-52); SODIUM SERUM 133 mEq/L (136-145); TOTAL PROTEIN,SERUM 4.3 gm/dL (6.0-8.3)
[2018-01-27 05:31] LABS: POTASSIUM SERUM 2.8 mEq/L (3.5-5.1)
[2018-01-27] MEDS: Morphine Sulfate 4 mg/mL 1mL Syr IVP PRN ×4 (06:01→21:02)
[2018-01-27] MEDS: Diltiazem 30 mg Tab PO SCH ×3 (06:06→17:25)
[2018-01-27] MEDS ORDERED: Mag Sulfate 2gm/50mL Premix 2 GM/50 ML BAG IV ONE (07:51)
[2018-01-27] MEDS: D5-0.9NS w/KCL 20mEq 1,000 ML IV SCH ×2 (08:11→23:16)
[2018-01-27] MEDS ORDERED: Potassium Chloride 40 MEQ, Lidocaine 1% 20mL Vial 25 MG in Sodium Chloride 0.9% 250 ML IV ONE (08:45)
[2018-01-27] MEDS ORDERED: Potassium Phosphate 20 MMOLE in Sodium Chloride 0.9% 250 ML IV ONE (08:47)
[2018-01-27] MEDS: Multivitamin w/ Minerals Tab PO SCH (09:01)
[2018-01-27] MEDS: Aspirin 81mg Chewable Tab PO SCH (09:01)
[2018-01-27] MEDS ORDERED: Norepinephrine 4 mg/4mL Vial IV ONE (09:56)
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
[2018-01-27] MEDS: Levofloxacin 500mg/100mL 500 MG/100 ML BAG IV SCH (13:38)
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
[2018-01-27] MEDS: Atorvastatin Calcium 10 MG TAB PO SCH (20:31)
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
[2018-01-28] MEDS: Diltiazem 30 mg Tab PO SCH ×5 (00:34→17:17)
[2018-01-28] MEDS: Morphine Sulfate 4 mg/mL 1mL Syr IVP PRN ×5 (03:03→22:54)
[2018-01-28 04:41] LABS: RED CELL DISTRIBUTION WIDTH 13.9 % (11.5-20.0); WHITE BLOOD COUNT 8.4 Th/cmm (4.8-10.8)
[2018-01-28 04:48] LABS: MEAN CELL VOLUME 100.1 fl (80-99); MEAN CORPUSCULAR HEMOGLOBIN 34.2 pg (26.0-30.0); MEAN CORPUSCULAR HGB CONC 34.2 pg (28.0-36.0); MEAN PLATELET VOLUME 9.8 fl; PLATELET COUNT 172 Th/cmm (150-400); RED BLOOD COUNT 2.26 Mil/cmm (4.30-5.70)
[2018-01-28 04:52] LABS: HEMATOCRIT 22.6 % (41.0-60); HEMOGLOBIN 7.7 gm/dL (12-16)
[2018-01-28] MEDS: Metoclopramide 5 mg/mL 2mL Vial IVP SCH ×3 (05:10→20:01)
[2018-01-28] MEDS: metroNIDAZOLE 500mg/NS 100mL 500 MG in Premix Fluid 1 BAG IV SCH ×3 (05:11→20:01)
[2018-01-28 05:42] LABS: ALB/GLOB RATIO 1.2 (1.0-1.8); ALBUMIN 2.2 gm/dL (4.2-5.5); ALKALINE PHOSPHATASE 28 U/L (34-104); ANION GAP 8.2 (7.0-16.0); BILIRUBIN,TOTAL 0.3 mg/dL (0.3-1.0); BUN - UREA NITROGEN 3 mg/dL (7-25); CALCIUM SERUM 7.6 mg/dL (8.6-10.3); CARBON DIOXIDE 24.4 mEq/L (21.0-31.0); CHLORIDE 110 mEq/L (98-107); CREATININE - SERUM 0.4 mg/dL (0.7-1.3); GFR AFRICAN-AMERICAN > 60.0 ml/min (>90); GFR NON AFRICAN-AMERICAN > 60.0 ml/min; GLUCOSE 159 mg/dL (70-105); MAGNESIUM 1.8 mg/dL (1.9-2.7); PHOSPHOROUS 3.3 mg/dL (2.5-5.0); POTASSIUM SERUM 3.6 mEq/L (3.5-5.1); SGOT 8 U/L (13-39); SGPT/ALT 5 U/L (7-52); SODIUM SERUM 139 mEq/L (136-145)
[2018-01-28 05:43] LABS: BAND NEUTROPHILE 1 % (0-10); EOSINOPHIL 1 % (0-5); LYMPHOCYTE 27 % (20-50); MONOCYTE 6 % (2-10); NEUTROPHILS 65 % (40-80); PLATELET ESTIMATE ADEQUATE (NORMAL)
[2018-01-28] MEDS: Ipratropium Neb 0.5 mg/2.5 mL UD HHN SCH ×4 (05:45→23:06)
[2018-01-28] MEDS: Multivitamin w/ Minerals Tab PO SCH (08:55)
[2018-01-28] MEDS: Aspirin 81mg Chewable Tab PO SCH (08:55)
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
[2018-01-28] MEDS: D5-0.9NS w/KCL 20mEq 1,000 ML IV SCH (10:50)
[2018-01-28] MEDS: Levofloxacin 500mg/100mL 500 MG/100 ML BAG IV SCH (13:48)
[2018-01-28] MEDS: Atorvastatin Calcium 10 MG TAB PO SCH (20:00)
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
[2018-01-29] MEDS: Diltiazem 30 mg Tab PO SCH ×4 (00:10→17:34)
[2018-01-29] MEDS: Morphine Sulfate 4 mg/mL 1mL Syr IVP PRN ×4 (04:18→20:39)
[2018-01-29] MEDS: Metoclopramide 5 mg/mL 2mL Vial IVP SCH ×3 (04:18→20:39)
[2018-01-29 04:22] LABS: % BASOPHILS 0.2 % (0.0-2.0); % EOSINOPHILS 3.5 % (0.0-5.0); % LYMPHOCYTES 14.8 % (20.0-50.0); % MONOCYTES 9.4 % (2.0-10.0); % NEUTROPHILS 72.1 % (40.0-80.0); EOSINOPHILE ABSOLUTE 0.4 Th/cmm (0.1-0.4); LYMPHOCYTE ABSOLUTE 1.7 Th/cmm (1.5-3.0); MEAN CELL VOLUME 95.5 fl (80-99); MEAN CORPUSCULAR HEMOGLOBIN 32.3 pg (26.0-30.0); MEAN CORPUSCULAR HGB CONC 33.8 pg (28.0-36.0); MEAN PLATELET VOLUME 8.5 fl; MONOCYTE ABSOLUTE 1.1 Th/cmm (0.3-1.0); NEUTROPHILE ABSOLUTE 8.1 Th/cmm (1.8-8.0); RED BLOOD COUNT 3.36 Mil/cmm (4.30-5.70); RED CELL DISTRIBUTION WIDTH 16.5 % (11.5-20.0); WHITE BLOOD COUNT 11.3 Th/cmm (4.8-10.8)
[2018-01-29 04:24] LABS: HEMATOCRIT 32.1 % (41.0-60); HEMOGLOBIN 10.8 gm/dL (12-16)
[2018-01-29 04:25] LABS: PLATELET COUNT 217 Th/cmm (150-400)
[2018-01-29] MEDS: metroNIDAZOLE 500mg/NS 100mL 500 MG in Premix Fluid 1 BAG IV SCH ×3 (04:50→20:36)
[2018-01-29 06:09] LABS: ALKALINE PHOSPHATASE 33 U/L (34-104); ANION GAP 8.2 (7.0-16.0); BILIRUBIN,TOTAL 0.5 mg/dL (0.3-1.0); BUN - UREA NITROGEN 3 mg/dL (7-25); CALCIUM SERUM 7.8 mg/dL (8.6-10.3); CARBON DIOXIDE 26.5 mEq/L (21.0-31.0); CHLORIDE 109 mEq/L (98-107); CREATININE - SERUM 0.4 mg/dL (0.7-1.3); GFR AFRICAN-AMERICAN > 60.0 ml/min (>90); GFR NON AFRICAN-AMERICAN > 60.0 ml/min; GLUCOSE 135 mg/dL (70-105); MAGNESIUM 1.6 mg/dL (1.9-2.7); POTASSIUM SERUM 3.7 mEq/L (3.5-5.1); SGOT 11 U/L (13-39); SGPT/ALT 8 U/L (7-52); SODIUM SERUM 140 mEq/L (136-145); TOTAL PROTEIN,SERUM 4.4 gm/dL (6.0-8.3)
[2018-01-29] MEDS: D5-0.9NS w/KCL 20mEq 1,000 ML IV SCH ×2 (06:38→13:10)
[2018-01-29] MEDS: Ipratropium Neb 0.5 mg/2.5 mL UD HHN SCH ×3 (07:04→22:58)
[2018-01-29 07:21] LABS: ALB/GLOB RATIO 1.2 (1.0-1.8); ALBUMIN 2.4 gm/dL (4.2-5.5)
[2018-01-29] MEDS: Aspirin 81mg Chewable Tab PO SCH (08:16)
[2018-01-29] MEDS: Multivitamin w/ Minerals Tab PO SCH (08:16)
--- NOTE | 2018-01-29 08:21 | Diagnostic Imaging Report ---
Portable chest x-ray Time: 0 712 History: Shortness of breath Allowing for portable technique the heart size is normal. No focal pulmonary parenchymal processes. No hilar or mediastinal abnormalities. Impression: No acute abnormalities.
[2018-01-29] MEDS ORDERED: Mag Sulfate 2gm/50mL Premix 2 GM/50 ML BAG IV ONE (09:04)
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
[2018-01-29] MEDS: Levofloxacin 500mg/100mL 500 MG/100 ML BAG IV SCH (13:08)
[2018-01-29 13:10] LABS: HEP A AB IGM Negative (Negative); HEP B CORE IGM Negative (Negative); HEP B SURFACE AG QL Negative (Negative); HEP C ANTIBODY >11.0 s/co ratio (0.0-0.9)
--- NOTE | 2018-01-29 16:09 | Pathology Report ---
[id number] Collection Date: 01/23/2018 Surgeon: Dr. Rebeca Saldana Specimen Description: Transverse and descending colon Gross Description: Received in formalin is a partial colon resection specimen measuring 85 cm length x up to 5.8 cm in diameter. The proximal and distal ends of the specimen consist of unremarkable appearing colon with a small amount of attached pericolic adipose tissue. The middle segment of the specimen does show patchy areas of hemorrhagic disruption with reddish discoloration seen in the outer serosal surface. Further examination shows several pinpoint openings that extend through the entire thickness of the muscular wall of the colon with an associated area of ulceration on the mucosal surface. There is hemorrhage seen in these patchy areas that extends through the mucosa and muscular wall. The remaining colon shows a normal folded mucosa with inteact muscular wall. Rn Correctional sections are submitted in eight cassettes labeled A1-A8. Cassette A1 shows the proximal and distal mucosa, cassettes A2 through A5 show the area of hemorrhagic fragmentation with focal pinpoint openings (A3), cassettes A6 through A8 show the area of pericolic hemorrhage into adipose tissue. Microscopic Description: The histologic sections show a portion of colon with focal areas of hemorrhagic fragmentation and mucosal ulceration. A small opening is seen extending from the mucosal surface and through the muscular wall with hemorrhagic changes also seen in the pericolic adipose tissue (slide A3). These findings are consistent with perforated transverse colon. Diagnosis: Partial colon resection with focal areas of hemorrhagic disruption and ulceration consistent with perforation (transverse and descending colon). [facility]# [id number] JESSICA
[2018-01-29] MEDS: Atorvastatin Calcium 10 MG TAB PO SCH (20:38)
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
--- NOTE | 2018-01-30 00:13 | Progress Notes ---
DATE: 01/29/2018 Case was discussed with staff of the patient, reviewed records. The staff report the patient is very cooperative. The patient continues to be in ICU. He is calmer, less agitated, sleeping better, eating better. She is not acting anyway dangerous, sleeping well, eating well. No side effects of the patient, tolerating increase in Seroquel and Cymbalta, and the patient still seems to be doing much better. No side effects with the medication. Thank you very much for allowing me to participate in the care of this most interesting gentleman. The patient needs to go to a SNF facility and follow up with her psychiatrist. JOB# [id number]
[2018-01-30] MEDS: Diltiazem 30 mg Tab PO SCH ×4 (00:15→17:05)
[2018-01-30] MEDS: D5-0.9NS w/KCL 20mEq 1,000 ML IV SCH ×2 (02:35→17:03)
[2018-01-30 04:57] LABS: EOSINOPHILE ABSOLUTE 0.4 Th/cmm (0.1-0.4); MEAN PLATELET VOLUME 9.3 fl
[2018-01-30 05:01] LABS: % EOSINOPHILS 2.9 % (0.0-5.0); % LYMPHOCYTES 9.8 % (20.0-50.0); % NEUTROPHILS 80.3 % (40.0-80.0); HEMATOCRIT 28.7 % (41.0-60); LYMPHOCYTE ABSOLUTE 1.2 Th/cmm (1.5-3.0); MEAN CELL VOLUME 96.5 fl (80-99); MEAN CORPUSCULAR HEMOGLOBIN 33.7 pg (26.0-30.0); MEAN CORPUSCULAR HGB CONC 34.9 pg (28.0-36.0); MONOCYTE ABSOLUTE 0.9 Th/cmm (0.3-1.0); NEUTROPHILE ABSOLUTE 9.8 Th/cmm (1.8-8.0); PLATELET COUNT 168 Th/cmm (150-400); RED BLOOD COUNT 2.98 Mil/cmm (4.30-5.70); RED CELL DISTRIBUTION WIDTH 16.1 % (11.5-20.0); WHITE BLOOD COUNT 12.3 Th/cmm (4.8-10.8)
[2018-01-30] MEDS: metroNIDAZOLE 500mg/NS 100mL 500 MG in Premix Fluid 1 BAG IV SCH ×3 (05:15→20:28)
[2018-01-30] MEDS: Metoclopramide 5 mg/mL 2mL Vial IVP SCH ×3 (05:18→20:28)
[2018-01-30 05:45] LABS: ALB/GLOB RATIO 1.2 (1.0-1.8); ALBUMIN 2.3 gm/dL (4.2-5.5); ALKALINE PHOSPHATASE 36 U/L (34-104); ANION GAP 7.3 (7.0-16.0); BILIRUBIN,TOTAL 0.3 mg/dL (0.3-1.0); BUN - UREA NITROGEN 5 mg/dL (7-25); CARBON DIOXIDE 28.1 mEq/L (21.0-31.0); CHLORIDE 106 mEq/L (98-107); CREATININE - SERUM 0.5 mg/dL (0.7-1.3); GFR AFRICAN-AMERICAN > 60.0 ml/min (>90); GFR NON AFRICAN-AMERICAN > 60.0 ml/min; GLUCOSE 118 mg/dL (70-105); MAGNESIUM 1.7 mg/dL (1.9-2.7); PHOSPHOROUS 3.4 mg/dL (2.5-5.0); POTASSIUM SERUM 4.4 mEq/L (3.5-5.1); SGOT 14 U/L (13-39); SGPT/ALT 7 U/L (7-52); SODIUM SERUM 137 mEq/L (136-145); TOTAL PROTEIN,SERUM 4.2 gm/dL (6.0-8.3)
[2018-01-30] MEDS: Ipratropium Neb 0.5 mg/2.5 mL UD HHN SCH ×3 (07:09→23:38)
[2018-01-30] MEDS ORDERED: Mag Sulfate 2gm/50mL Premix 2 GM/50 ML BAG IV ONE (08:00)
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
[2018-01-30] MEDS: Aspirin 81mg Chewable Tab PO SCH (09:01)
[2018-01-30] MEDS: Multivitamin w/ Minerals Tab PO SCH (09:02)
[2018-01-30] MEDS: Morphine Sulfate 4 mg/mL 1mL Syr IVP PRN ×4 (09:11→22:14)
[2018-01-30] MEDS ORDERED: Probiotic Screen MC PRN (11:32)
[2018-01-30] MEDS: Levofloxacin 500mg/100mL 500 MG/100 ML BAG IV SCH (13:37)
[2018-01-30] MEDS: Lactobacillus Rhamnosus GG 15 Billion CFU CAP.SPRINK PO SCH (13:37)
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
--- NOTE | 2018-01-30 18:25 | Progress Notes ---
DATE: 01/30/2018 PROGRESS ON THE UNIT: Case was discussed with staff of the patient, reviewed records. The patient continues to be in ICU. He continues to need redirection, however is much calmer. He is currently denying any intent to harm himself or anybody. Sleeping better, eating better. No side effects to the higher dose of Seroquel and Cymbalta. PLAN: The patient will need to follow up with the psychiatrist upon discharge. Thank you very much for allowing me to participate in the care of this most interesting gentleman. JOB# [id number]
[2018-01-30] MEDS: Atorvastatin Calcium 10 MG TAB PO SCH (20:28)
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
[2018-01-31] MEDS: Diltiazem 30 mg Tab PO SCH ×4 (00:11→17:29)
[2018-01-31] MEDS: metroNIDAZOLE 500mg/NS 100mL 500 MG in Premix Fluid 1 BAG IV SCH ×3 (05:17→21:00)
[2018-01-31] MEDS: Metoclopramide 5 mg/mL 2mL Vial IVP SCH ×3 (05:17→21:01)
[2018-01-31] MEDS: Ipratropium Neb 0.5 mg/2.5 mL UD HHN SCH ×3 (06:40→23:22)
[2018-01-31 07:36] LABS: % BASOPHILS 0.4 % (0.0-2.0); % EOSINOPHILS 2.6 % (0.0-5.0); % LYMPHOCYTES 9.8 % (20.0-50.0); % MONOCYTES 8.6 % (2.0-10.0); % NEUTROPHILS 78.6 % (40.0-80.0); BASOPHILE ABSOLUTE 0.1 Th/cumm (0-0.2); EOSINOPHILE ABSOLUTE 0.3 Th/cmm (0.1-0.4); HEMATOCRIT 32.5 % (41.0-60); HEMOGLOBIN 10.9 gm/dL (12-16); LYMPHOCYTE ABSOLUTE 1.3 Th/cmm (1.5-3.0); MEAN CELL VOLUME 96.2 fl (80-99); MEAN CORPUSCULAR HEMOGLOBIN 32.3 pg (26.0-30.0); MEAN CORPUSCULAR HGB CONC 33.6 pg (28.0-36.0); MEAN PLATELET VOLUME 9.2 fl; MONOCYTE ABSOLUTE 1.1 Th/cmm (0.3-1.0); NEUTROPHILE ABSOLUTE 10.4 Th/cmm (1.8-8.0); PLATELET COUNT 265 Th/cmm (150-400); RED BLOOD COUNT 3.38 Mil/cmm (4.30-5.70); RED CELL DISTRIBUTION WIDTH 16.1 % (11.5-20.0); WHITE BLOOD COUNT 13.2 Th/cmm (4.8-10.8)
[2018-01-31 08:04] LABS: ALB/GLOB RATIO 1.1 (1.0-1.8); ALBUMIN 2.3 gm/dL (4.2-5.5); ALKALINE PHOSPHATASE 37 U/L (34-104); ANION GAP 8.8 (7.0-16.0); BILIRUBIN,TOTAL 0.3 mg/dL (0.3-1.0); BUN - UREA NITROGEN 10 mg/dL (7-25); CALCIUM SERUM 8.2 mg/dL (8.6-10.3); CARBON DIOXIDE 29.7 mEq/L (21.0-31.0); CHLORIDE 104 mEq/L (98-107); CREATININE - SERUM 0.6 mg/dL (0.7-1.3); GFR AFRICAN-AMERICAN > 60.0 ml/min (>90); GFR NON AFRICAN-AMERICAN > 60.0 ml/min; GLUCOSE 112 mg/dL (70-105); POTASSIUM SERUM 4.5 mEq/L (3.5-5.1); SGOT 14 U/L (13-39); SGPT/ALT 8 U/L (7-52); SODIUM SERUM 138 mEq/L (136-145); TOTAL PROTEIN,SERUM 4.5 gm/dL (6.0-8.3)
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
[2018-01-31] MEDS: Aspirin 81mg Chewable Tab PO SCH (09:06)
[2018-01-31] MEDS: Lactobacillus Rhamnosus GG 15 Billion CFU CAP.SPRINK PO SCH (09:06)
[2018-01-31] MEDS: Morphine Sulfate 4 mg/mL 1mL Syr IVP PRN ×4 (09:16→23:18)
[2018-01-31] MEDS: Multivitamin w/ Minerals Tab PO SCH (09:25)
[2018-01-31] MEDS: D5-0.9NS w/KCL 20mEq 1,000 ML IV SCH (10:00)
[2018-01-31] MEDS: Levofloxacin 500mg/100mL 500 MG/100 ML BAG IV SCH (14:45)
--- NOTE | 2018-01-31 16:36 | Progress Notes ---
DATE: 01/31/2018 Case was discussed with staff of the patient, reviewed records. His mood is better. He is able to speak, participate in a conversation. He is less tired. He is still in ICU though. He does have serous drainage from the JAMMIE. The patient has ascites. He is eating well, having bowel movements. The patient reports he sleeps well, eats well. He is currently denying any current intent to harm himself or anybody. He is denying any auditory or visual hallucinations. The patient is medically ill. Thank you very much for allowing me to participate in the care of this most interesting gentleman. The patient will need follow up with the psychiatrist up on discharge. [facility]# [id number]
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
[2018-01-31] MEDS ORDERED: Norepinephrine 4 mg/4mL Vial IV ONE (19:34)
[2018-01-31] MEDS: Atorvastatin Calcium 10 MG TAB PO SCH (21:01)
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
[2018-02-01] MEDS: Diltiazem 30 mg Tab PO SCH ×4 (00:07→17:38)
[2018-02-01] MEDS: D5-0.9NS w/KCL 20mEq 1,000 ML IV SCH ×3 (01:23→22:40)
[2018-02-01 04:54] LABS: % BASOPHILS 0.2 % (0.0-2.0); % LYMPHOCYTES 16.9 % (20.0-50.0); % MONOCYTES 13.3 % (2.0-10.0); % NEUTROPHILS 65.6 % (40.0-80.0); EOSINOPHILE ABSOLUTE 0.4 Th/cmm (0.1-0.4); HEMATOCRIT 33.2 % (41.0-60); HEMOGLOBIN 11.1 gm/dL (12-16); LYMPHOCYTE ABSOLUTE 1.7 Th/cmm (1.5-3.0); MEAN CELL VOLUME 96.9 fl (80-99); MEAN CORPUSCULAR HEMOGLOBIN 32.4 pg (26.0-30.0); MEAN CORPUSCULAR HGB CONC 33.4 pg (28.0-36.0); MEAN PLATELET VOLUME 8.7 fl; MONOCYTE ABSOLUTE 1.3 Th/cmm (0.3-1.0); NEUTROPHILE ABSOLUTE 6.4 Th/cmm (1.8-8.0); PLATELET COUNT 297 Th/cmm (150-400); RED BLOOD COUNT 3.43 Mil/cmm (4.30-5.70); WHITE BLOOD COUNT 9.8 Th/cmm (4.8-10.8)
[2018-02-01] MEDS: metroNIDAZOLE 500mg/NS 100mL 500 MG in Premix Fluid 1 BAG IV SCH ×3 (05:14→20:50)
[2018-02-01] MEDS: Metoclopramide 5 mg/mL 2mL Vial IVP SCH ×3 (05:14→20:51)
[2018-02-01 05:48] LABS: ALB/GLOB RATIO 1.2 (1.0-1.8); ALBUMIN 2.6 gm/dL (4.2-5.5); ALKALINE PHOSPHATASE 38 U/L (34-104); ANION GAP 7.8 (7.0-16.0); BILIRUBIN,TOTAL 0.3 mg/dL (0.3-1.0); BUN - UREA NITROGEN 9 mg/dL (7-25); CALCIUM SERUM 8.3 mg/dL (8.6-10.3); CARBON DIOXIDE 29.6 mEq/L (21.0-31.0); CHLORIDE 102 mEq/L (98-107); CREATININE - SERUM 0.6 mg/dL (0.7-1.3); GFR AFRICAN-AMERICAN > 60.0 ml/min (>90); GFR NON AFRICAN-AMERICAN > 60.0 ml/min; GLUCOSE 121 mg/dL (70-105); MAGNESIUM 1.5 mg/dL (1.9-2.7); POTASSIUM SERUM 4.4 mEq/L (3.5-5.1); SGOT 17 U/L (13-39); SGPT/ALT 10 U/L (7-52); SODIUM SERUM 135 mEq/L (136-145); TOTAL PROTEIN,SERUM 4.7 gm/dL (6.0-8.3)
[2018-02-01] MEDS: Morphine Sulfate 4 mg/mL 1mL Syr IVP PRN ×3 (06:53→15:20)
[2018-02-01] MEDS: Ipratropium Neb 0.5 mg/2.5 mL UD HHN SCH ×4 (07:07→23:38)
[2018-02-01] MEDS: Aspirin 81mg Chewable Tab PO SCH (08:38)
[2018-02-01] MEDS: Lactobacillus Rhamnosus GG 15 Billion CFU CAP.SPRINK PO SCH (08:38)
[2018-02-01] MEDS: Multivitamin w/ Minerals Tab PO SCH (08:39)
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
[2018-02-01 12:16] LABS: HCV AB >11.0 s/co ratio (0.0-0.9)
[2018-02-01] MEDS: Levofloxacin 500mg/100mL 500 MG/100 ML BAG IV SCH (14:22)
--- NOTE | 2018-02-01 16:40 | Progress Notes ---
DATE: 02/01/2018 Case was discussed with staff of the patient, reviewed records. The patient seems to be showing progress. He is still in ICU. He is physically not well. He is sleeping better. Continues to be depressed, but he is much better. He is not acting anyway dangerous. He denies any intent to harm himself or anybody. Denies any visual hallucinations. The patient needs to followup with the psychiatrist on discharge. Thank you very much for allowing me to participate in the care of this most interesting gentleman. JOB# [id number]
[2018-02-01 18:08] LABS: URINE SOURCE RANDOM
[2018-02-01 18:15] LABS: URINE BILIRUBIN NEGATIVE (NEGATIVE); URINE BLOOD NEGATIVE (NEGATIVE); URINE GLUCOSE (UA) NEGATIVE (NEGATIVE); URINE KETONE NEGATIVE (NEGATIVE); URINE LEUKOCYTE ESTERASE NEGATIVE (NEGATIVE); URINE NITRATE NEGATIVE (NEGATIVE); URINE PH 7.5 (4.6 - 8.0); URINE PROTEIN NEGATIVE (NEGATIVE); URINE UROBILINOGEN 0.2 E.U./dL (0.2 - 1.0)
[2018-02-01 18:16] LABS: URINE CLARITY CLEAR (CLEAR); URINE COLOR YELLOW; URINE MICROSCOPIC INDICATED? YES
[2018-02-01 18:18] LABS: URINE RBC 0-2 /hpf (0-5)
[2018-02-01 18:19] LABS: URINE BACTERIA FEW /hpf (NONE SEEN); URINE EPITHELIAL CELLS OCCASIONAL /lpf (FEW); URINE WBC 0-2 /hpf (0-5)
[2018-02-01] MEDS: Atorvastatin Calcium 10 MG TAB PO SCH (20:51)
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
[2018-02-02] MEDS: Morphine Sulfate 4 mg/mL 1mL Syr IVP PRN ×4 (00:37→17:15)
[2018-02-02] MEDS: Diltiazem 30 mg Tab PO SCH ×4 (01:13→17:28)
[2018-02-02] MEDS: Metoclopramide 5 mg/mL 2mL Vial IVP SCH ×3 (04:39→20:58)
[2018-02-02] MEDS: metroNIDAZOLE 500mg/NS 100mL 500 MG in Premix Fluid 1 BAG IV SCH ×3 (04:39→20:57)
[2018-02-02] MEDS ORDERED: Mag Sulfate 2gm/50mL Premix 2 GM/50 ML BAG IV ONE (07:16)
[2018-02-02] MEDS: Ipratropium Neb 0.5 mg/2.5 mL UD HHN SCH ×3 (07:34→22:41)
[2018-02-02] MEDS: Aspirin 81mg Chewable Tab PO SCH (08:45)
[2018-02-02] MEDS: Lactobacillus Rhamnosus GG 15 Billion CFU CAP.SPRINK PO SCH (08:45)
[2018-02-02] MEDS: Multivitamin w/ Minerals Tab PO SCH (08:46)
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
[2018-02-02] MEDS: D5-0.9NS w/KCL 20mEq 1,000 ML IV SCH (12:07)
[2018-02-02] MEDS: Levofloxacin 500mg/100mL 500 MG/100 ML BAG IV SCH (13:04)
[2018-02-02] MEDS: Atorvastatin Calcium 10 MG TAB PO SCH (20:57)
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
[2018-02-03] MEDS: Diltiazem 30 mg Tab PO SCH ×4 (00:06→17:15)
[2018-02-03] MEDS: D5-0.9NS w/KCL 20mEq 1,000 ML IV SCH (01:30)
[2018-02-03] MEDS: Morphine Sulfate 4 mg/mL 1mL Syr IVP PRN ×4 (02:03→22:16)
[2018-02-03] MEDS: Metoclopramide 5 mg/mL 2mL Vial IVP SCH ×3 (05:08→22:15)
[2018-02-03] MEDS: metroNIDAZOLE 500mg/NS 100mL 500 MG in Premix Fluid 1 BAG IV SCH ×3 (05:08→22:15)
[2018-02-03 05:10] LABS: % BASOPHILS 0.6 % (0.0-2.0); % EOSINOPHILS 3.2 % (0.0-5.0); % LYMPHOCYTES 20.9 % (20.0-50.0); % MONOCYTES 11.5 % (2.0-10.0); % NEUTROPHILS 63.8 % (40.0-80.0); EOSINOPHILE ABSOLUTE 0.2 Th/cmm (0.1-0.4); HEMATOCRIT 28.5 % (41.0-60); HEMOGLOBIN 9.5 gm/dL (12-16); LYMPHOCYTE ABSOLUTE 1.6 Th/cmm (1.5-3.0); MEAN CELL VOLUME 96.3 fl (80-99); MEAN CORPUSCULAR HEMOGLOBIN 32.1 pg (26.0-30.0); MEAN CORPUSCULAR HGB CONC 33.3 pg (28.0-36.0); MEAN PLATELET VOLUME 8.4 fl; MONOCYTE ABSOLUTE 0.9 Th/cmm (0.3-1.0); NEUTROPHILE ABSOLUTE 4.9 Th/cmm (1.8-8.0); PLATELET COUNT 316 Th/cmm (150-400); RED BLOOD COUNT 2.95 Mil/cmm (4.30-5.70); RED CELL DISTRIBUTION WIDTH 16.3 % (11.5-20.0); WHITE BLOOD COUNT 7.6 Th/cmm (4.8-10.8)
[2018-02-03] MEDS: Ipratropium Neb 0.5 mg/2.5 mL UD HHN SCH ×5 (05:22→23:26)
[2018-02-03 05:40] LABS: ALB/GLOB RATIO 1.3 (1.0-1.8); ALBUMIN 2.4 gm/dL (4.2-5.5); ALKALINE PHOSPHATASE 33 U/L (34-104); ANION GAP 7.6 (7.0-16.0); BILIRUBIN,TOTAL 0.2 mg/dL (0.3-1.0); BUN - UREA NITROGEN 7 mg/dL (7-25); CALCIUM SERUM 7.9 mg/dL (8.6-10.3); CARBON DIOXIDE 27.7 mEq/L (21.0-31.0); CHLORIDE 107 mEq/L (98-107); CREATININE - SERUM 0.6 mg/dL (0.7-1.3); GFR AFRICAN-AMERICAN > 60.0 ml/min (>90); GFR NON AFRICAN-AMERICAN > 60.0 ml/min; GLUCOSE 122 mg/dL (70-105); MAGNESIUM 1.7 mg/dL (1.9-2.7); PHOSPHOROUS 3.5 mg/dL (2.5-5.0); POTASSIUM SERUM 4.3 mEq/L (3.5-5.1); SGOT 14 U/L (13-39); SGPT/ALT 9 U/L (7-52); SODIUM SERUM 138 mEq/L (136-145); TOTAL PROTEIN,SERUM 4.3 gm/dL (6.0-8.3)
[2018-02-03] MEDS ORDERED: Mag Sulfate 2gm/50mL Premix 2 GM/50 ML BAG IV ONE (07:18)
[2018-02-03] MEDS: Lactobacillus Rhamnosus GG 15 Billion CFU CAP.SPRINK PO SCH (08:17)
[2018-02-03] MEDS: Multivitamin w/ Minerals Tab PO SCH (08:17)
[2018-02-03] MEDS: Aspirin 81mg Chewable Tab PO SCH (08:17)
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
[2018-02-03] MEDS: Levofloxacin 500mg/100mL 500 MG/100 ML BAG IV SCH (13:10)
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
[2018-02-03] MEDS: Atorvastatin Calcium 10 MG TAB PO SCH (22:15)
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
[2018-02-03] MEDS: HYDROmorphone 2 mg/mL 1mL Vial IVP PRN (23:49)
[2018-02-04] MEDS: Diltiazem 30 mg Tab PO SCH ×4 (00:43→18:27)
[2018-02-04] MEDS: D5-0.9NS w/KCL 20mEq 1,000 ML IV SCH ×2 (02:00→22:58)
[2018-02-04] MEDS: HYDROmorphone 2 mg/mL 1mL Vial IVP PRN ×5 (03:34→21:51)
[2018-02-04 04:34] LABS: % BASOPHILS 0.5 % (0.0-2.0); % EOSINOPHILS 3.7 % (0.0-5.0); % LYMPHOCYTES 29.6 % (20.0-50.0); % MONOCYTES 10.2 % (2.0-10.0); EOSINOPHILE ABSOLUTE 0.3 Th/cmm (0.1-0.4); HEMOGLOBIN 9.5 gm/dL (12-16); LYMPHOCYTE ABSOLUTE 2.4 Th/cmm (1.5-3.0); MEAN CELL VOLUME 95.8 fl (80-99); MEAN CORPUSCULAR HEMOGLOBIN 31.5 pg (26.0-30.0); MEAN CORPUSCULAR HGB CONC 32.9 pg (28.0-36.0); MEAN PLATELET VOLUME 8.5 fl; MONOCYTE ABSOLUTE 0.8 Th/cmm (0.3-1.0); NEUTROPHILE ABSOLUTE 4.7 Th/cmm (1.8-8.0); PLATELET COUNT 318 Th/cmm (150-400); RED BLOOD COUNT 3.02 Mil/cmm (4.30-5.70); RED CELL DISTRIBUTION WIDTH 16.2 % (11.5-20.0); WHITE BLOOD COUNT 8.2 Th/cmm (4.8-10.8)
[2018-02-04] MEDS: metroNIDAZOLE 500mg/NS 100mL 500 MG in Premix Fluid 1 BAG IV SCH ×3 (05:18→20:46)
[2018-02-04] MEDS: Metoclopramide 5 mg/mL 2mL Vial IVP SCH ×3 (05:18→20:46)
[2018-02-04 05:26] LABS: ANION GAP 8.5 (7.0-16.0); BUN - UREA NITROGEN 9 mg/dL (7-25); CALCIUM SERUM 8.1 mg/dL (8.6-10.3); CARBON DIOXIDE 27.3 mEq/L (21.0-31.0); CHLORIDE 105 mEq/L (98-107); CREATININE - SERUM 0.7 mg/dL (0.7-1.3); GFR AFRICAN-AMERICAN > 60.0 ml/min (>90); GFR NON AFRICAN-AMERICAN > 60.0 ml/min; GLUCOSE 113 mg/dL (70-105); MAGNESIUM 1.7 mg/dL (1.9-2.7); POTASSIUM SERUM 4.8 mEq/L (3.5-5.1); SODIUM SERUM 136 mEq/L (136-145)
[2018-02-04] MEDS: Ipratropium Neb 0.5 mg/2.5 mL UD HHN SCH ×4 (07:00→22:20)
[2018-02-04] MEDS: Aspirin 81mg Chewable Tab PO SCH (08:19)
[2018-02-04] MEDS: Multivitamin w/ Minerals Tab PO SCH (08:19)
[2018-02-04] MEDS: Lactobacillus Rhamnosus GG 15 Billion CFU CAP.SPRINK PO SCH (08:21)
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
[2018-02-04] MEDS ORDERED: Mag Sulfate 2gm/50mL Premix 2 GM/50 ML BAG IV ONE (13:00)
[2018-02-04] MEDS: Levofloxacin 500mg/100mL 500 MG/100 ML BAG IV SCH (14:20)
[2018-02-04] MEDS: Atorvastatin Calcium 10 MG TAB PO SCH (20:49)
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
[2018-02-05] MEDS: Diltiazem 30 mg Tab PO SCH ×4 (00:29→17:32)
--- NOTE | 2018-02-05 01:32 | Progress Notes ---
DATE: 02/04/2018 SUBJECTIVE: Case was discussed with staff of the patient, reviewed records. The patient is currently moved to telemetry. He is more stable. He is out of ICU. He sleeps well, eats well. Denies no suicidal ideation. No paranoid ____ and the patient will be moving to [facility]. Thank you very much for allowing me to participate in the care of this most interesting gentleman. [facility]# [id number]
[2018-02-05] MEDS: HYDROmorphone 2 mg/mL 1mL Vial IVP PRN ×4 (02:34→20:43)
[2018-02-05] MEDS: metroNIDAZOLE 500mg/NS 100mL 500 MG in Premix Fluid 1 BAG IV SCH ×3 (05:04→20:41)
[2018-02-05] MEDS: Metoclopramide 5 mg/mL 2mL Vial IVP SCH ×3 (05:04→20:42)
[2018-02-05 05:45] LABS: ANION GAP 8.3 (7.0-16.0); BUN - UREA NITROGEN 10 mg/dL (7-25); CALCIUM SERUM 7.9 mg/dL (8.6-10.3); CARBON DIOXIDE 27.8 mEq/L (21.0-31.0); CHLORIDE 102 mEq/L (98-107); CREATININE - SERUM 0.6 mg/dL (0.7-1.3); GFR AFRICAN-AMERICAN > 60.0 ml/min (>90); GFR NON AFRICAN-AMERICAN > 60.0 ml/min; GLUCOSE 122 mg/dL (70-105); MAGNESIUM 1.8 mg/dL (1.9-2.7); POTASSIUM SERUM 4.1 mEq/L (3.5-5.1); SODIUM SERUM 134 mEq/L (136-145)
[2018-02-05] MEDS: Ipratropium Neb 0.5 mg/2.5 mL UD HHN SCH ×3 (07:34→23:28)
[2018-02-05] MEDS: Multivitamin w/ Minerals Tab PO SCH (09:30)
[2018-02-05] MEDS: Lactobacillus Rhamnosus GG 15 Billion CFU CAP.SPRINK PO SCH (09:30)
[2018-02-05] MEDS: Aspirin 81mg Chewable Tab PO SCH (09:31)
[2018-02-05] MEDS: Levofloxacin 500mg/100mL 500 MG/100 ML BAG IV SCH (13:04)
[2018-02-05] MEDS: Atorvastatin Calcium 10 MG TAB PO SCH (20:42)
--- NOTE | 2018-02-05 21:00 | Progress Notes ---
DATE: 02/05/2018 SUBJECTIVE: Case was discussed with staff of the patient, reviewed records. The patient is currently on telemetry. The patient is more stable, calmer, sleeping better, eating better. He is denying any current intent to harm himself or anybody. He is more animated. No side effects with the medications, no sedation, no nausea, no extrapyramidal symptoms. Apparently, the screening unit registered nurse would like sent him to [facility] as they have more services to offer him there as well as juvenile counselor him. He is still with severe depression. Thank you very much for allowing me to participate in the care of this most interesting gentleman. JOB# [id number]
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
[2018-02-06] MEDS: HYDROmorphone 2 mg/mL 1mL Vial IVP PRN ×4 (04:35→21:11)
[2018-02-06] MEDS: Metoclopramide 5 mg/mL 2mL Vial IVP SCH ×3 (04:35→21:13)
[2018-02-06] MEDS: D5-0.9NS w/KCL 20mEq 1,000 ML IV SCH (04:36)
[2018-02-06 05:21] LABS: % BASOPHILS 0.2 % (0.0-2.0); % EOSINOPHILS 1.9 % (0.0-5.0); % MONOCYTES 9.5 % (2.0-10.0); % NEUTROPHILS 64.4 % (40.0-80.0); EOSINOPHILE ABSOLUTE 0.2 Th/cmm (0.1-0.4); HEMATOCRIT 30.5 % (41.0-60); MEAN CELL VOLUME 96.6 fl (80-99); MEAN CORPUSCULAR HEMOGLOBIN 31.8 pg (26.0-30.0); MEAN CORPUSCULAR HGB CONC 32.9 pg (28.0-36.0); MEAN PLATELET VOLUME 8.6 fl; MONOCYTE ABSOLUTE 0.8 Th/cmm (0.3-1.0); NEUTROPHILE ABSOLUTE 5.3 Th/cmm (1.8-8.0); PLATELET COUNT 238 Th/cmm (150-400); RED BLOOD COUNT 3.15 Mil/cmm (4.30-5.70); RED CELL DISTRIBUTION WIDTH 16.6 % (11.5-20.0); WHITE BLOOD COUNT 8.3 Th/cmm (4.8-10.8)
[2018-02-06 05:45] LABS: ALB/GLOB RATIO 1.3 (1.0-1.8); ALBUMIN 2.7 gm/dL (4.2-5.5); ALKALINE PHOSPHATASE 38 U/L (34-104); ANION GAP 10.3 (7.0-16.0); BILIRUBIN,TOTAL 0.2 mg/dL (0.3-1.0); BUN - UREA NITROGEN 12 mg/dL (7-25); CARBON DIOXIDE 23.9 mEq/L (21.0-31.0); CHLORIDE 106 mEq/L (98-107); CREATININE - SERUM 0.6 mg/dL (0.7-1.3); GFR AFRICAN-AMERICAN > 60.0 ml/min (>90); GFR NON AFRICAN-AMERICAN > 60.0 ml/min; GLUCOSE 108 mg/dL (70-105); MAGNESIUM 1.8 mg/dL (1.9-2.7); POTASSIUM SERUM 4.2 mEq/L (3.5-5.1); SGOT 25 U/L (13-39); SGPT/ALT 16 U/L (7-52); SODIUM SERUM 136 mEq/L (136-145); TOTAL PROTEIN,SERUM 4.8 gm/dL (6.0-8.3)
[2018-02-06] MEDS: Diltiazem 30 mg Tab PO SCH ×4 (05:58→19:15)
[2018-02-06] MEDS: Ipratropium Neb 0.5 mg/2.5 mL UD HHN SCH ×3 (06:50→23:55)
[2018-02-06] MEDS: Aspirin 81mg Chewable Tab PO SCH (08:31)
[2018-02-06] MEDS: Lactobacillus Rhamnosus GG 15 Billion CFU CAP.SPRINK PO SCH (08:32)
[2018-02-06] MEDS: Multivitamin w/ Minerals Tab PO SCH (08:32)
[2018-02-06] MEDS: Magnesium Chloride EC 64mg Tab PO SCH (21:12)
[2018-02-06] MEDS: Atorvastatin Calcium 10 MG TAB PO SCH (21:12)
--- NOTE | 2018-02-06 23:44 | Progress Notes ---
DATE: 02/06/2018 Case was discussed with staff of the patient. The patient is starting to show progress. He reported that today he will be going to [facility] for rehabilitation. The patient is sleeping better, eating better. He is denying any current intent to harm himself or anybody. Denies any auditory or visual hallucination or paranoia. He denies having any side effects and the patient needs follow up with the psychiatrist and go to [facility]. Thank you very much for allowing me to participate in the care of this most interesting gentleman. JOB# [id number]
[2018-02-07] MEDS: HYDROmorphone 2 mg/mL 1mL Vial IVP PRN ×5 (01:05→21:23)
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
[2018-02-07] MEDS: Metoclopramide 5 mg/mL 2mL Vial IVP SCH ×3 (04:58→21:22)
[2018-02-07] MEDS: Diltiazem 30 mg Tab PO SCH ×3 (05:13→18:00)
[2018-02-07] MEDS: Ipratropium Neb 0.5 mg/2.5 mL UD HHN SCH ×3 (07:39→23:40)
[2018-02-07] MEDS: Multivitamin w/ Minerals Tab PO SCH (08:37)
[2018-02-07] MEDS: Aspirin 81mg Chewable Tab PO SCH (08:39)
[2018-02-07] MEDS: Lactobacillus Rhamnosus GG 15 Billion CFU CAP.SPRINK PO SCH (08:39)
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
--- NOTE | 2018-02-07 17:09 | Progress Notes ---
DATE: 02/07/2018 Case was discussed with staff of the patient, reviewed records. The patient currently in telemetry. The patient is feeling better, sleeping well, and eating well. The patient reported no current suicidal ideation, homicidal ideation, no current intent to harm himself or anybody. No side effects. The patient needs follow up with the psychiatrist; upon discharge he is going to [place]. Thank you very much for allowing me to participate in care of this most interesting gentleman. JOB# [id number]
[2018-02-07] MEDS: Magnesium Chloride EC 64mg Tab PO SCH (21:22)
[2018-02-07] MEDS: Atorvastatin Calcium 10 MG TAB PO SCH (21:23)
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
[2018-02-08] MEDS: Diltiazem 30 mg Tab PO SCH ×5 (00:22→17:48)
[2018-02-08] MEDS: HYDROmorphone 2 mg/mL 1mL Vial IVP PRN ×6 (01:25→20:58)
[2018-02-08] MEDS: Metoclopramide 5 mg/mL 2mL Vial IVP SCH ×3 (05:45→20:57)
[2018-02-08] MEDS: Ipratropium Neb 0.5 mg/2.5 mL UD HHN SCH ×3 (07:11→22:48)
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
[2018-02-08] MEDS: Lactobacillus Rhamnosus GG 15 Billion CFU CAP.SPRINK PO SCH (09:36)
[2018-02-08] MEDS: Aspirin 81mg Chewable Tab PO SCH (09:36)
[2018-02-08] MEDS: Multivitamin w/ Minerals Tab PO SCH (09:40)
[2018-02-08] MEDS: Atorvastatin Calcium 10 MG TAB PO SCH (20:56)
[2018-02-08] MEDS: Magnesium Chloride EC 64mg Tab PO SCH (20:57)
--- NOTE | 2018-02-08 21:17 | Progress Notes ---
DATE: 02/08/2018 Case was discussed with staff of the patient, reviewed records. The patient is supposed to need to go to [facility]. It seemed like [facility] want to take him; however, the patient is no longer having any intent to harm himself or anybody. He is compliant with the medication with no side effects, no auditory and visual hallucinations. So, I did clear him to go to a rehabilitation center and the patient seems to be doing much better. Thank you very much for allowing me to participate in the care of this most interesting gentleman. JOB# [id number]
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
[2018-02-09] MEDS: HYDROmorphone 2 mg/mL 1mL Vial IVP PRN ×6 (00:41→21:21)
[2018-02-09] MEDS: Diltiazem 30 mg Tab PO SCH ×5 (00:41→18:46)
[2018-02-09] MEDS: Metoclopramide 5 mg/mL 2mL Vial IVP SCH ×3 (04:31→21:22)
[2018-02-09 07:00] LABS: % BASOPHILS 0.3 % (0.0-2.0); % EOSINOPHILS 1.7 % (0.0-5.0); % LYMPHOCYTES 19.3 % (20.0-50.0); % NEUTROPHILS 68.7 % (40.0-80.0); EOSINOPHILE ABSOLUTE 0.1 Th/cmm (0.1-0.4); HEMATOCRIT 30.3 % (41.0-60); HEMOGLOBIN 10.2 gm/dL (12-16); LYMPHOCYTE ABSOLUTE 1.7 Th/cmm (1.5-3.0); MEAN CELL VOLUME 96.6 fl (80-99); MEAN CORPUSCULAR HEMOGLOBIN 32.6 pg (26.0-30.0); MEAN CORPUSCULAR HGB CONC 33.8 pg (28.0-36.0); MEAN PLATELET VOLUME 8.7 fl; MONOCYTE ABSOLUTE 0.9 Th/cmm (0.3-1.0); PLATELET COUNT 334 Th/cmm (150-400); RED BLOOD COUNT 3.14 Mil/cmm (4.30-5.70); RED CELL DISTRIBUTION WIDTH 15.8 % (11.5-20.0); WHITE BLOOD COUNT 8.7 Th/cmm (4.8-10.8)
[2018-02-09 07:12] LABS: ALB/GLOB RATIO 1.1 (1.0-1.8); ALBUMIN 2.9 gm/dL (4.2-5.5); ALKALINE PHOSPHATASE 36 U/L (34-104); ANION GAP 9.1 (7.0-16.0); BILIRUBIN,TOTAL 0.2 mg/dL (0.3-1.0); BUN - UREA NITROGEN 15 mg/dL (7-25); CALCIUM SERUM 8.7 mg/dL (8.6-10.3); CHLORIDE 100 mEq/L (98-107); CREATININE - SERUM 0.6 mg/dL (0.7-1.3); GFR AFRICAN-AMERICAN > 60.0 ml/min (>90); GFR NON AFRICAN-AMERICAN > 60.0 ml/min; GLUCOSE 111 mg/dL (70-105); POTASSIUM SERUM 4.1 mEq/L (3.5-5.1); SGOT 24 U/L (13-39); SGPT/ALT 21 U/L (7-52); SODIUM SERUM 134 mEq/L (136-145); TOTAL PROTEIN,SERUM 5.6 gm/dL (6.0-8.3)
[2018-02-09] MEDS: Ipratropium Neb 0.5 mg/2.5 mL UD HHN SCH ×3 (07:25→23:02)
[2018-02-09] MEDS: Aspirin 81mg Chewable Tab PO SCH (08:55)
[2018-02-09] MEDS: Lactobacillus Rhamnosus GG 15 Billion CFU CAP.SPRINK PO SCH (08:56)
[2018-02-09] MEDS: Multivitamin w/ Minerals Tab PO SCH (08:56)
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
[2018-02-09] MEDS: Atorvastatin Calcium 10 MG TAB PO SCH (21:22)
[2018-02-09] MEDS: Magnesium Chloride EC 64mg Tab PO SCH (21:22)
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
[2018-02-10] MEDS: Diltiazem 30 mg Tab PO SCH ×4 (00:39→17:34)
[2018-02-10] MEDS: HYDROmorphone 2 mg/mL 1mL Vial IVP PRN ×3 (01:08→21:16)
[2018-02-10] MEDS: Metoclopramide 5 mg/mL 2mL Vial IVP SCH ×3 (05:46→21:03)
[2018-02-10] MEDS: Ipratropium Neb 0.5 mg/2.5 mL UD HHN SCH ×3 (07:09→22:33)
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
[2018-02-10] MEDS: Multivitamin w/ Minerals Tab PO SCH (09:58)
[2018-02-10] MEDS: Lactobacillus Rhamnosus GG 15 Billion CFU CAP.SPRINK PO SCH (09:59)
[2018-02-10] MEDS: Aspirin 81mg Chewable Tab PO SCH (10:01)
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
[2018-02-10] MEDS: Magnesium Chloride EC 64mg Tab PO SCH (21:02)
[2018-02-10] MEDS: Atorvastatin Calcium 10 MG TAB PO SCH (21:02)
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
[2018-02-11] MEDS: Diltiazem 30 mg Tab PO SCH ×5 (00:23→18:21)
[2018-02-11] MEDS: HYDROmorphone 2 mg/mL 1mL Vial IVP PRN ×2 (01:42→09:55)
[2018-02-11] MEDS: Metoclopramide 5 mg/mL 2mL Vial IVP SCH ×2 (05:26→12:07)
[2018-02-11] MEDS: Ipratropium Neb 0.5 mg/2.5 mL UD HHN SCH ×2 (07:15→14:29)
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
[2018-02-11] MEDS: Aspirin 81mg Chewable Tab PO SCH (09:46)
[2018-02-11] MEDS: Lactobacillus Rhamnosus GG 15 Billion CFU CAP.SPRINK PO SCH (09:47)
[2018-02-11] MEDS: Multivitamin w/ Minerals Tab PO SCH (09:49)
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
[2018-02-11] MEDS: Atorvastatin Calcium 10 MG TAB PO SCH (20:55)
[2018-02-11] MEDS: Magnesium Chloride EC 64mg Tab PO SCH (20:56)
--- NOTE | 2018-02-11 21:07 | Progress Notes ---
DATE: 02/11/2018 Case was discussed with staff of the patient, reviewed records. The patient needs to go to rehab center. He is stable and has been stable for a while. He is sleeping well, eating well. He is not acting anyway dangerous. He denies any current intent to harm himself or anybody. He denies any auditory or visual hallucination. The patient will need follow up with his psychiatrist upon discharge. Thank you very much for allowing me to participate in the care of this most interesting gentleman. JOB# [id number]
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
== END 2018-02-11 20:55 | DRG 853 ==
LOC: ER 12:25 → TELE 18:00 → MSI 01-22 18:12 → ICU 01-23 00:43 → TELE 02-04 07:20 → ICU 02-05 06:03 → MSI 02-06 19:00
PROVIDERS: ADMIT Internal Medicine; ATTEND Internal Medicine
PROC: 0DTG0ZZ Resection of Left Large Intestine, Open Approach (ICD-10-PCS; principal; 2018-01-23)
PROC: 0DNW0ZZ Release Peritoneum, Open Approach (ICD-10-PCS; 2018-01-23)
PROC: 0D9670Z Drainage of Stomach with Drainage Device, Via Natural or Artificial Opening (ICD-10-PCS; 2018-01-23)
PROC: 30233N1 Transfusion of Nonautologous Red Blood Cells into Peripheral Vein, Percutaneous Approach (ICD-10-PCS; 2018-01-28)
DX: A41.9 Sepsis, unspecified organism (principal); K65.8 Other peritonitis; J18.9 Pneumonia, unspecified organism; N39.0 Urinary tract infection, site not specified; S36.531A Laceration of transverse colon, initial encounter; S36.521A Contusion of transverse colon, initial encounter; J44.1 Chronic obstructive pulmonary disease with (acute) exacerbation; F33.2 Major depressive disorder, recurrent severe without psychotic features; I47.1 Supraventricular tachycardia; Y92.230 Patient room in hospital as the place of occurrence of the external cause; X78.1XXA Intentional self-harm by knife, initial encounter; I95.9 Hypotension, unspecified; K66.8 Other specified disorders of peritoneum; G89.4 Chronic pain syndrome; N31.9 Neuromuscular dysfunction of bladder, unspecified; F17.210 Nicotine dependence, cigarettes, uncomplicated; G83.14 Monoplegia of lower limb affecting left nondominant side; N28.89 Other specified disorders of kidney and ureter; S31.119A Laceration without foreign body of abdominal wall, unspecified quadrant without penetration into peritoneal cavity, initial encounter; I25.10 Atherosclerotic heart disease of native coronary artery without angina pectoris; I48.91 Unspecified atrial fibrillation; D64.9 Anemia, unspecified; R56.9 Unspecified convulsions; E83.42 Hypomagnesemia; K66.0 Peritoneal adhesions (postprocedural) (postinfection); F41.9 Anxiety disorder, unspecified; B96.4 Proteus (mirabilis) (morganii) as the cause of diseases classified elsewhere; Z16.24 Resistance to multiple antibiotics; Z85.848 Personal history of malignant neoplasm of other parts of nervous tissue; Z88.8 Allergy status to other drugs, medicaments and biological substances; Z88.0 Allergy status to penicillin; Z91.013 Allergy to seafood; Z82.49 Family history of ischemic heart disease and other diseases of the circulatory system; Z83.3 Family history of diabetes mellitus
CPT/HCPCS: 36415-UA; 36600-90; 70150-TC; 70491-TC; 71045-TC; 71260-TC; 76700-TC; 80048-TC; 80053-TC; 80074-90; 81001-TC; 82550-TC; 82553; 82803-TC; 83036-90; 83605; 83735-TC; 84100-TC; 84484-TC; 85007-TC; 85025-TC; 85610-TC; 85730-TC; 86703-TC; 86803-90; 86850-TC; 86900-TC; 86901-TC; 86922-TC; 87086-90; 90779; 90799; 93005; 94002; 94003; 94640; 94760; 96372; 96375; 97530; 99201; J1100; J1170; J1200; J1630; J1956; J2001; J2060; J2270; J2405; J2704; J2710; J2765; J3010; J3475; J3480; J7070; P9016; Q9967; V2790; X3904; X6024; X6258; X6452; Z7610

== ENCOUNTER 2018-06-07 14:15 | Inpatient (IN) | payer MEDICARE, MEDICAID ==
[2018-06-07] MEDS ORDERED: Lactated Ringer 1,000 ML IV ONE ×2 (14:58→17:03)
[2018-06-07 15:22] LABS: % BASOPHILS 0.7 % (0.0-2.0); % EOSINOPHILS 2.9 % (0.0-5.0); % LYMPHOCYTES 35.4 % (20.0-50.0); % MONOCYTES 10.8 % (2.0-10.0); % NEUTROPHILS 50.2 % (40.0-80.0); EOSINOPHILE ABSOLUTE 0.2 Th/cmm (0.1-0.4); HEMATOCRIT 36.2 % (41.0-60); HEMOGLOBIN 12.3 gm/dL (12-16); LYMPHOCYTE ABSOLUTE 2.3 Th/cmm (1.5-3.0); MEAN CELL VOLUME 98.6 fl (80-99); MEAN CORPUSCULAR HEMOGLOBIN 33.4 pg (26.0-30.0); MEAN CORPUSCULAR HGB CONC 33.9 pg (28.0-36.0); MEAN PLATELET VOLUME 8.8 fl; MONOCYTE ABSOLUTE 0.7 Th/cmm (0.3-1.0); NEUTROPHILE ABSOLUTE 3.4 Th/cmm (1.8-8.0); PLATELET COUNT 201 Th/cmm (150-400); RED BLOOD COUNT 3.67 Mil/cmm (4.30-5.70); RED CELL DISTRIBUTION WIDTH 13.1 % (11.5-20.0); WHITE BLOOD COUNT 6.6 Th/cmm (4.8-10.8)
[2018-06-07 15:34] LABS: ALB/GLOB RATIO 1.5 (1.0-1.8); ALBUMIN 3.9 gm/dL (4.2-5.5); ALKALINE PHOSPHATASE 38 U/L (34-104); AMYLASE SERUM 43 U/L (29-103); ANION GAP 10.7 (7.0-16.0); BILIRUBIN,TOTAL 0.2 mg/dL (0.3-1.0); BUN - UREA NITROGEN 18 mg/dL (7-25); CALCIUM SERUM 9.6 mg/dL (8.6-10.3); CARBON DIOXIDE 30.8 mEq/L (21.0-31.0); CHLORIDE 103 mEq/L (98-107); CREATININE - SERUM 0.8 mg/dL (0.7-1.3); GFR AFRICAN-AMERICAN > 60.0 ml/min (>90); GFR NON AFRICAN-AMERICAN > 60.0 ml/min; GLUCOSE 104 mg/dL (70-105); LIPASE 18 U/L (11-82); PHOSPHOROUS 4.3 mg/dL (2.5-5.0); POTASSIUM SERUM 4.5 mEq/L (3.5-5.1); SGOT 16 U/L (13-39); SGPT/ALT 13 U/L (7-52); SODIUM SERUM 140 mEq/L (136-145); TOTAL PROTEIN,SERUM 6.5 gm/dL (6.0-8.3)
[2018-06-07] MEDS ORDERED: Morphine Sulfate 2 mg/mL 1mL Syr IVP STA (16:22)
[2018-06-07] MEDS ORDERED: Morphine Sulfate 4 mg/mL 1mL Syr IVP STA (16:22)
[2018-06-07] MEDS ORDERED: Morphine Sulfate 2 mg/mL 1mL Syr ONE (16:34)
[2018-06-07] MEDS ORDERED: HYDROmorphone 1 mg/mL 1mL Syr IVP STA (17:53)
--- NOTE | 2018-06-07 17:59 | ED Physician Chart ---
ED Chief Complaint/HPI - Patient Information Date Seen:: 06/07/18 Time Seen:: 14:30 Chief Complaint:: chronic abdominal pain History of Present Illness:: chronic abdominal pain and dependence on Dilaudid and [place]. Patient told me that he had one episode of a normal bowel movement this morning and not diarrhea 3 times today. He denied vomiting 3 times. when I called to talk to Dr. Benitez to tell her that the patient wanted to leave against medical advice because he was not getting his Dilaudid, she told me that he was sent here for a left kidney mass and that he needed work up for this. Dr. Benitez told me to just give him his Dilaudid. Allergies:: Allergies Allergy/AdvReac Type Severity Reaction Status Date / Time ketorolac [From Toradol] Allergy Verified 10/24/17 15:28 shellfish derived Allergy Verified 06/07/18 14:58 pcn Allergy Uncoded 02/27/13 16:09 Vitals:: Vital Signs - 8 hr 06/07/18 14:30 Temp 98.0 F HR 77 RR 18 BP 91/52 O2 Sat % 96 Historian:: Patient Review:: Nurse's Note Reviewed, Transfer documents Reviewed ED Review of Systems - Review of Systems General/Constitutional: No fever, No chills, No weight loss, No weakness, No diaphoresis, No edema, No loss of appetite Skin: No skin lesions, No rash, No bruising Head: No headache, No light-headedness Eyes: No loss of vision, No pain, No diplopia ENT: No earache, No nasal drainage, No sore throat, No tinnitus Neck: No neck pain, No swelling, No thyromegaly, No stiffness, No mass noted Cardio Vascular: No chest pain, No palpitations, No PND, No orthopnea, No edema Pulmonary: No SOB, No cough, No sputum, No wheezing GI: No nausea, No vomiting, No diarrhea, Pain, No melena, No hematochezia, No constipation, No hematemesis G/U: No dysuria, No frequency, No hematuria Musculoskeletal: Bone or joint pain, Back pain, Other (neck pain) Endocrine: No polyuria, No polydipsia Psychiatric: No prior psych history, No depression, No anxiety, No suicidal ideation Hematopoietic: No bruising, No lymphadenopathy Allergic/Immuno: No urticaria, No angioedema Neurological: No syncope, No focal symptoms, No weakness, No paresthesia, No headache, No seizure, No dizziness, No confusion, No vertigo ED Past Medical History - Past Medical History Obtainable: Yes Past Medical History: HTN, Asthma/COPD, CVA/TIA, Seizures, Other (atrial fibrillation; peritonitis; exploratory lapartomy from [facility]; astrocytoma of spine with extensive neck and thoracic surgery) Family Medical History - Family Member Mother History Unknown: Yes Ethnicity: Non- Living Status: Hx Family Hypertension: Yes Hx Family Diabetes: Yes Father History Unknown: Yes ED Physical Exam - Physical Examination General/Constitutional: Awake, Well-developed, well-nourished, Alert, No distress, GCS 15, Non-toxic appearing, Ambulatory Other Gen/Cons comments:: thin, chronically ill appearing and pale. posterior neck and mid back scar multiple abdominal scars. Head: Atraumatic Eyes: Lids, conjuctiva normal, PERRL, EOMI Other Skin comments:: posterior neck and mid back scar multiple abdominal scars. right hip scar ENMT: External ears, nose nl Other Neck comments:: posterior neck with widened scar and thoracic back scar. states that he has pain in the area of the scars. Respiratory: Nl effort/Exclusion, Clear to Auscultation, No Wheeze/Rhonchi/Rales Cardio Vascular: RRR, No murmur, gallop, rubs, NL S1 S2 Other GI comments:: multiple abdominal scars with decreased bowel sounds and a couple of tinkles. Other Extremities comments:: right hip scar with chronic right hip pain. subjective paresthesias in UE. Neuro/Psych: Alert/oriented Other Neuro/Psych comments:: agitated---HE WANTS HIS DILAUDID. Other Misc comments:: posterior neck and mid back scar ED Labs/Radiology/EKG Results - Lab Results Results: Laboratory Tests 06/07/18 06/07/18 15:09 15:09 WBC 6.6 RBC 3.67 L Hgb 12.3 Hct 36.2 L MCV 98.6 MCH 33.4 H MCHC Differential 33.9 RDW 13.1 Plt Count 201 MPV 8.8 Neutrophils % 50.2 Lymphocytes % 35.4 Monocytes % 10.8 H Eosinophils % 2.9 Basophils % 0.7 Sodium 140 Potassium 4.5 Chloride 103 Carbon Dioxide 30.8 Anion Gap 10.7 BUN 18 Creatinine 0.8 Est GFR ( Amer) > 60.0 Est GFR (Non-Af Amer) > 60.0 BUN/Creatinine Ratio 22.5 Glucose 104 Calcium 9.6 Phosphorus 4.3 Magnesium 2.0 Total Bilirubin 0.2 L AST 16 ALT 13 Alkaline Phosphatase 38 Total Protein 6.5 Albumin 3.9 L Globulin 2.6 Albumin/Globulin Ratio 1.5 Amylase 43 Lipase 18 ED Assessment - Assessment General Assessment: patient wants to leave against medical advice because he is not getting the Dilaudid that he is used to getting. He is yelling across the busy emergency room in front of other patients because he wants to get Dilaudid. Called Dr. Benitez to inform her that the patient wants to leave against medical advice. Dr. Benitez instructed me to give him what he wants--to give him Dilaudid. Dr. Benitez given presentation at 5:[address] BENITEZ STATES THAT THE PATIENT WAS SENT OVER HERE BECAUSE HE HAS A LEFT KIDNEY MASS. CT scan of the abdomen/pelvis: limited/suboptimal exam: no oral/owel contrast. Artifact bilateral hip arthroplasties. Surgical changes. Distended stool--filled large bowel. Mildly dilateral right renal collecting system. Etiology uncertain. ASVD. CT c-spine: degenerative/chronci changes; ASVD; NAD. CT t-spine: extensive chronic changes (presumably prior surgery) posterior elements. With apparent loculated fluid collection within subcutaneous tissues (?hygroma). Need clinical correlation and surgical history. Metallic densities -- probably s/p surgery. EKG from 19:34:27 p.m. reveals normal sinus rhythm with a flipped t wave in V1. ED Septic Shock - . Is Septic Shock (SBP<90, OR Lactate>4 mmol\L) present?: No - <6hrs of presentation: Vital Signs: Vital Signs - 8 hr 06/07/18 14:30 Temp 98.0 F HR 77 RR 18 BP 91/52 O2 Sat % 96 ED Reassessment (Disposition) - Reassessment Reassessment Condition:: Improved - Diagnosis Diagnosis:: Chronic abdominal pain Narcotic addiction Anemia Low albumin Astrocytoma of the posterior neck and thoracic area with subjective UE paresthesias Chronic neck and thoracic pain. DR. BENITEZ STATES THAT THE PATIENT WAS SENT OVER HERE BECAUSE HE HAS A LEFT KIDNEY MASS. - Patient Disposition Discharge/Transfer:: Acute Care w/in this hosp Admitted to:: Med/Surg Condition at Disposition:: Stable, Improved
[2018-06-07 18:09] LABS: URINE SOURCE CATH
[2018-06-07 18:18] LABS: URINE BILIRUBIN NEGATIVE (NEGATIVE); URINE BLOOD SMALL (NEGATIVE); URINE GLUCOSE (UA) NEGATIVE (NEGATIVE); URINE KETONE NEGATIVE (NEGATIVE); URINE LEUKOCYTE ESTERASE SMALL (NEGATIVE); URINE MICROSCOPIC INDICATED? YES; URINE NITRATE NEGATIVE (NEGATIVE); URINE PH 6.5 (4.6 - 8.0); URINE PROTEIN NEGATIVE (NEGATIVE); URINE UROBILINOGEN 0.2 E.U./dL (0.2 - 1.0)
[2018-06-07 18:21] LABS: URINE CLARITY HAZY (CLEAR); URINE COLOR YELLOW
[2018-06-07] MEDS ORDERED: HYDROmorphone 1 mg/mL 1mL Syr ONE (18:33)
[2018-06-07 18:46] LABS: AMPHETAMINE URINE POSITIVE (NEGATIVE); BARBITURATES URINE NEGATIVE (NEGATIVE); CANNABINOID THC POSITIVE (NEGATIVE); COCAINE METABOLITE QUAL URINE NEGATIVE (NEGATIVE); METHADONE URINE NEGATIVE (NEGATIVE); METHAMPHETAMINES QUAL URINE NEGATIVE (NEGATIVE); PHENCYCLIDINE (PCP) URINE NEGATIVE (NEGATIVE); TRICYCLICS (TCA) QUAL. URINE POSITIVE (NEGATIVE)
[2018-06-07 18:47] LABS: BENZODIAZEPINES QUAL URINE NEGATIVE (NEGATIVE); OPIATES (MORPHINE) QUAL. URINE POSITIVE (NEGATIVE)
[2018-06-07 20:08] LABS: URINE EPITHELIAL CELLS FEW /lpf (FEW)
[2018-06-07 20:09] LABS: URINE BACTERIA 3+ /hpf (NONE SEEN)
[2018-06-07 22:51] VITALS: BP 125/68
[2018-06-07] MEDS: HYDROmorphone 2 mg/mL 1mL Vial IVP PRN (23:02)
[2018-06-07] MEDS ORDERED: Fleet Enema 135 mL RC PRN (23:55)
[2018-06-07] MEDS ORDERED: Magnesium Hydroxide (MOM) 30 mL UDC PO PRN (23:55)
[2018-06-07] MEDS ORDERED: Albuterol/Ipratropium Neb 3 ML AERS HHN PRN (23:55)
[2018-06-08] MEDS ORDERED: D5-0.45NS 1,000 ML IV SCH (00:15)
[2018-06-08] MEDS: HYDROmorphone 2 mg/mL 1mL Vial IVP PRN ×4 (03:48→21:33)
--- NOTE | 2018-06-08 08:35 | Diagnostic Imaging Report ---
CT scan cervical spine HISTORY: Pain, paresthesia Total DLP equals 425 CTDI equals 23.3 Axial sections were obtained to the cervical spine. Additional sagittal and coronal reformatted images are provided. The exam demonstrates an extensive defect involving the posterior elements of the lower cervical spine extending into the thoracic region. Question prior surgery or congenital. Correlation with history needed. Spur formation noted off the anterior margins of the bodies of C6 and 7. Alignment is normal. Disc spaces are maintained. Atherosclerotic calcification noted. IMPRESSION: 1. Extensive defect involving the posterior elements of the lower cervical/thoracic spine. Findings may be related to prior surgery or congenital. Clinical correlation and correlation with history needed. 2. Degenerative changes 3. No acute abnormalities 4. Atherosclerotic vascular changes
--- NOTE | 2018-06-08 08:38 | Diagnostic Imaging Report ---
CT scan thoracic spine HISTORY: Pain, paresthesia Total DLP equals 963 CTDI equals 27.9 Axial sections were obtained through the thoracic spine. Additional sagittal and coronal reformatted images are provided. There is a extensive defect involving the posterior elements of the lower cervical and upper thoracic spine. Findings may be associated with prior surgery. Congenital abnormality cannot be excluded. Correlation with history needed. Multiple metallic densities are seen presumably related to prior surgery. Again, correlation with history needed. There is a rather extensive loculated fluid collection extending within the subcutaneous tissues over the dorsal aspect of the upper and mid thoracic spine. Findings may be related to surgical sequelae (hygroma). Correlation with history needed. Spur formation noted off the anterior margins of multiple vertebrae. No obvious extradural abnormalities are seen. IMPRESSION: 1. Extensive chronic changes involving the posterior elements of the thoracic spine as noted above. Findings presumably related to prior surgery. Question congenital changes. Correlation with history needed. 2. Relatively large loculated fluid collection within the subcutaneous tissues over the dorsal aspect of the spine. Again, findings may be associated with surgical sequelae (hygroma). Clinical correlation needed. 3. Mild diffuse degenerative changes
--- NOTE | 2018-06-08 08:44 | Diagnostic Imaging Report ---
CT scan abdomen and pelvis without intravenous contrast HISTORY: Pain Total DLP equals 287 CTDI equals 6.2 Axial sections were obtained from the xiphoid process down to the pubic symphysis. Exam is limited due to the absence of oral/bowel contrast. Poor delineation of bowel wall margins. In addition, evaluation of the pelvis is limited due to artifact associated with bilateral hip arthroplasties. Limited sections through the lower chest demonstrate an approximate 1.0 cm nodular density in the right lower lobe. This is indeterminant. A follow-up CT scan in 6 months would provide for monitoring. The liver exhibits a homogeneous parenchyma. No focal lesions. The spleen appears normal. Suboptimal delineation of the pancreatic margins. There is mild dilatation of the right renal collecting system. Exact etiology and significance uncertain. The left kidney appears normal. Moderately distended stool-filled large bowel is seen. Changes consistent with constipation. No definite abnormal masses or fluid collections seen within the pelvis. Surgical changes noted in the pelvis. IMPRESSION: 1. Limited exam due to the absence of oral/bowel contrast as well as artifact associated bilateral hip arthroplasties. 2. Additional surgical changes 3. Distended stool-filled large bowel consistent with constipation 4. Mildly dilated right renal collecting system. Findings questionable significance 5. Atherosclerotic vascular changes 6. 1.0 cm nodular density in the right lower lobe of the lung. This is indeterminate. A follow-up CT scan in 6 months would provide for monitoring.
[2018-06-08] MEDS ORDERED: Non-Formulary Item 1 EA (Gabapentin [Gabapentin] 800 MG) PO SCH (09:00)
[2018-06-08] MEDS ORDERED: Non-Formulary Item 1 EA (Amino Acids/Protein Hydrolys [Pro-Stat Sugar Free Liquid] 30 ML) PO SCH (09:00)
[2018-06-08] MEDS ORDERED: Non-Formulary Item 1 EA (Tiotropium Bromide [Spiriva] 18 MCG) IH SCH (09:00)
[2018-06-08] MEDS: Multivitamin w/ Minerals Tab PO SCH (09:08)
[2018-06-08] MEDS: Aspirin 81mg Chewable Tab PO SCH (09:11)
[2018-06-08] MEDS: Hydrocodone/APAP 5mg/325mg Tab PO PRN ×2 (14:42→23:20)
[2018-06-08] MEDS: Atorvastatin Calcium 10 MG TAB PO SCH (21:00)
[2018-06-09] MEDS: HYDROmorphone 2 mg/mL 1mL Vial IVP PRN ×5 (01:22→22:11)
[2018-06-09] MEDS: Multivitamin w/ Minerals Tab PO SCH (08:56)
[2018-06-09] MEDS: Aspirin 81mg Chewable Tab PO SCH (08:57)
[2018-06-09] MEDS: Levofloxacin 750mg/150mL 750 MG/150 ML BAG IV SCH (12:17)
--- NOTE | 2018-06-09 12:18 | Internal Medicine Prog Note ---
Internal Medicine Subjective - Subjective Service Date: 06/09/18 Patient seen and examined:: without staff Patient is:: awake, verbal, interactive, in bed Patient Complaints of:: congestion, SOB Per staff patient has:: no adverse event, no episodes of fall, eating well Internal Medicine Objective - Results Result Diagrams: 06/07/18 15:09 06/07/18 15:09 Recent Labs: Laboratory Last Values WBC 6.6 Th/cmm (4.8-10.8) 06/07/18 15:09 RBC 3.67 Mil/cmm (4.30-5.70) L 06/07/18 15:09 Hgb 12.3 gm/dL (12-16) 06/07/18 15:09 Hct 36.2 % (41.0-60) L 06/07/18 15:09 MCV 98.6 fl (80-99) 06/07/18 15:09 MCH 33.4 pg (26.0-30.0) H 06/07/18 15:09 MCHC Differential 33.9 pg (28.0-36.0) 06/07/18 15:09 RDW 13.1 % (11.5-20.0) 06/07/18 15:09 Plt Count 201 Th/cmm (150-400) 06/07/18 15:09 MPV 8.8 fl 06/07/18 15:09 Neutrophils % 50.2 % (40.0-80.0) 06/07/18 15:09 Lymphocytes % 35.4 % (20.0-50.0) 06/07/18 15:09 Monocytes % 10.8 % (2.0-10.0) H 06/07/18 15:09 Eosinophils % 2.9 % (0.0-5.0) 06/07/18 15:09 Basophils % 0.7 % (0.0-2.0) 06/07/18 15:09 Sodium 140 mEq/L (136-145) 06/07/18 15:09 Potassium 4.5 mEq/L (3.5-5.1) 06/07/18 15:09 Chloride 103 mEq/L (98-107) 06/07/18 15:09 Carbon Dioxide 30.8 mEq/L (21.0-31.0) 06/07/18 15:09 Anion Gap 10.7 (7.0-16.0) 06/07/18 15:09 BUN 18 mg/dL (7-25) 06/07/18 15:09 Creatinine 0.8 mg/dL (0.7-1.3) 06/07/18 15:09 Est GFR ( Amer) > 60.0 ml/min (>90) 06/07/18 15:09 Est GFR (Non-Af Amer) > 60.0 ml/min 06/07/18 15:09 BUN/Creatinine Ratio 22.5 06/07/18 15:09 Glucose 104 mg/dL (70-105) 06/07/18 15:09 Calcium 9.6 mg/dL (8.6-10.3) 06/07/18 15:09 Phosphorus 4.3 mg/dL (2.5-5.0) 06/07/18 15:09 Magnesium 2.0 mg/dL (1.9-2.7) 06/07/18 15:09 Total Bilirubin 0.2 mg/dL (0.3-1.0) L 06/07/18 15:09 AST 16 U/L (13-39) 06/07/18 15:09 ALT 13 U/L (7-52) 06/07/18 15:09 Alkaline Phosphatase 38 U/L (34-104) 06/07/18 15:09 Total Protein 6.5 gm/dL (6.0-8.3) 06/07/18 15:09 Albumin 3.9 gm/dL (4.2-5.5) L 06/07/18 15:09 Globulin 2.6 gm/dL 06/07/18 15:09 Albumin/Globulin Ratio 1.5 (1.0-1.8) 06/07/18 15:09 Amylase 43 U/L (29-103) 06/07/18 15:09 Lipase 18 U/L (11-82) 06/07/18 15:09 Urine Source CATH 06/07/18 17:20 Urine Color YELLOW 06/07/18 17:20 Urine Clarity HAZY (CLEAR) 06/07/18 17:20 Urine pH 6.5 (4.6 - 8.0) 06/07/18 17:20 Ur Specific [place] 1.015 (1.005-1.030) 06/07/18 17:20 Urine Protein NEGATIVE mg/dL (NEGATIVE) 06/07/18 17:20 Urine Glucose (UA) NEGATIVE mg/dL (NEGATIVE) 06/07/18 17:20 Urine Ketones NEGATIVE mg/dL (NEGATIVE) 06/07/18 17:20 Urine Blood SMALL (NEGATIVE) H 06/07/18 17:20 Urine Nitrate NEGATIVE (NEGATIVE) 06/07/18 17:20 Urine Bilirubin NEGATIVE (NEGATIVE) 06/07/18 17:20 Urine Urobilinogen 0.2 E.U./dL (0.2 - 1.0) 06/07/18 17:20 Ur Leukocyte Esterase SMALL (NEGATIVE) H 06/07/18 17:20 Urine RBC 2-5 /hpf (0-5) H 06/07/18 17:20 Urine WBC 6-10 /hpf (0-5) 06/07/18 17:20 Ur Epithelial Cells FEW /lpf (FEW) 06/07/18 17:20 Urine Bacteria 3+ /hpf (NONE SEEN) H 06/07/18 17:20 Urine Opiates Screen POSITIVE (NEGATIVE) H 06/07/18 17:20 Urine Methadone Screen NEGATIVE (NEGATIVE) 06/07/18 17:20 Ur Barbiturates Screen NEGATIVE (NEGATIVE) 06/07/18 17:20 Ur Tricyclics Screen POSITIVE (NEGATIVE) H 06/07/18 17:20 Ur Phencyclidine Scrn NEGATIVE (NEGATIVE) 06/07/18 17:20 Amphetamines Screen POSITIVE (NEGATIVE) H 06/07/18 17:20 U Methamphetamines Scrn NEGATIVE (NEGATIVE) 06/07/18 17:20 U Benzodiazepines Scrn NEGATIVE (NEGATIVE) 06/07/18 17:20 U Cocaine Metab Screen NEGATIVE (NEGATIVE) 06/07/18 17:20 U Cannabinoids Screen POSITIVE (NEGATIVE) H 06/07/18 17:20 - Physical Exam Vitals and I&O: Vital Signs Temp 97.4 F 06/09/18 08:00 Pulse 90 06/09/18 08:57 Resp 18 06/09/18 08:00 BP 141/95 06/09/18 08:57 Pulse Ox 98 06/09/18 08:00 Intake & Output 06/08/18 06/09/18 06/09/18 18:59 06:59 18:59 Intake Total 500 240 Balance 500 240 Weight (lbs) 47.174 kg 47.174 kg Intake: Oral 500 240 Other: # Voids 5 2 # Bowel Movements 0 0 Stool Characteristics Soft Soft Weight Source Bedscale Bedscale Active Medications: Current Medications Acetaminophen/Hydrocodone Bitart ([place] 5mg/325mg) 2 tab PO Q4H PRN PRN Reason: Severe Pain Stop: 08/06/18 23:54 Last Admin: 06/08/18 23:20 Dose: 2 tab Albuterol/Ipratropium (Duoneb Neb) 3 ml HHN Q6H PRN PRN Reason: SOB/WHEEZING Stop: 08/06/18 23:54 Ascorbic Acid (Vitamin C) 500 mg PO DAILY [facility] Stop: 08/07/18 08:59 Last Admin: 06/09/18 08:56 Dose: 500 mg Aspirin (Aspirin Chewable) 162 mg PO DAILY [facility] Stop: 08/07/18 08:59 Last Admin: 06/09/18 08:57 Dose: Not Given Atorvastatin Calcium (Lipitor) 20 mg PO HS [facility]; Protocol Stop: 08/07/18 20:59 Last Admin: 06/08/18 21:00 Dose: 20 mg Bisacodyl (Dulcolax 10 Mg Supp) 10 mg RC DAILY PRN PRN Reason: IF MOM INEFFECTIVE Stop: 08/06/18 23:54 Diphenhydramine HCl (Benadryl) 50 mg PO Q6H PRN PRN Reason: ITCHINESS Stop: 08/06/18 23:54 Docusate Sodium (Colace) 100 mg PO BID [facility] Stop: 08/07/18 08:59 Last Admin: 06/09/18 08:55 Dose: Not Given Gabapentin (Neurontin) 800 mg PO TID [facility] Stop: 08/07/18 08:59 Last Admin: 06/09/18 08:55 Dose: 800 mg Hydromorphone HCl (Dilaudid) 2 mg IVP Q4HR PRN PRN Reason: Pain (Severe) Stop: 08/06/18 22:04 Last Admin: 06/09/18 09:55 Dose: 2 mg Hydromorphone HCl (Dilaudid) 2 mg PO Q4HR PRN PRN Reason: BREAKTHROUGH PAIN Stop: 08/06/18 23:54 Dextrose/Sodium Chloride (D5-0.45ns) 1,000 mls @ 75 mls/hr IV .[id number] [facility] Stop: 08/07/18 00:14 Last Admin: 06/08/18 09:06 Dose: 75 mls/hr Levofloxacin (Levaquin Pb) 750 mg in 150 mls @ 100 mls/hr IV Q24HR [facility] Stop: 08/08/18 11:44 Isosorbide Mononitrate (Imdur) 30 mg PO DAILY [facility] Stop: 08/07/18 08:59 Last Admin: 06/09/18 08:56 Dose: 30 mg Lisinopril (Zestril) 10 mg PO DAILY [facility] Stop: 08/07/18 08:59 Last Admin: 06/09/18 08:56 Dose: 10 mg Lorazepam (Ativan) 1 mg PO BID [facility]; Protocol Stop: 08/07/18 08:59 Last Admin: 06/09/18 08:55 Dose: 1 mg Magnesium Hydroxide (Milk Of Magnesia) 30 ml PO DAILY PRN PRN Reason: Constipation Stop: 08/06/18 23:54 Metoprolol Succinate (Toprol Xl) 25 mg PO BID [facility] Stop: 08/07/18 08:59 Last Admin: 06/09/18 08:57 Dose: 25 mg Miscellaneous (Duloxetine Hcl [Cymbalta]) 30 mg PO BID [facility] Stop: 08/07/18 08:59 Nitroglycerin (Nitrostat) 0.4 mg SL Q5MIN PRN PRN Reason: Chest Pain Stop: 08/06/18 23:54 Quetiapine Fumarate (Seroquel) 100 mg PO BID [facility]; Protocol Stop: 08/07/18 08:59 Last Admin: 06/09/18 08:56 Dose: 100 mg Senna (Senna) 8.6 mg PO HS [facility] Stop: 08/07/18 20:59 Last Admin: 06/08/18 21:01 Dose: 8.6 mg Sodium Phosphate (Fleet Enema) 118 ml RC Q72H PRN PRN Reason: IF DULCOLAX INEFFECTIVE Stop: 08/06/18 23:54 General: weak, lethargic, congested HEENT: NC/AT, PERRLA, throat clear Neck: Supple, No JVD Lungs: wheezing Cardiovascular: RRR, Normal S1, Normal S2 Abdomen: soft, tender Extremities: clear, pedal pulses Neurological: no change - Procedures Procedures: Procedures Procedure Code Date DRAINAGE OF STOMACH WITH DRAINAGE DEVICE, VIA OPENING 8Q0065P 01/21/18 RELEASE PERITONEUM, OPEN APPROACH [id number] 01/21/18 RESECTION OF LEFT LARGE INTESTINE, OPEN APPROACH [id number] 01/21/18 TRANSFUSE NONAUT RED BLOOD CELLS IN PERIPH VEIN, PERC 24903J2 01/21/18 Internal Medicine Assmt/Plan - Assessment Assessment: Left Kidney mass? renal U/S ordered. COPD exacerbation: RT protocol; Solumedrol? Chronic pain syndrome exacerbation: pain control. SOB: on and off; multifactorial. Anxiety: ativan PRN h/o spinal tumor: s/p surgeries. Seizure: monitoring. UTI: pending final C&S; adjust ABX accordingly. Nutritional Asmnt/Malnutr-PDOC - Dietary Evaluation Malnutrition Findings (Please click <Entered> for more info): Nutritional Asmnt/Malnutrition Start: 06/08/18 11: 19 Text: Status: Complete Freq: Protocol: Document 06/08/18 11:19 CARLOS (Rec: 06/08/18 11:37 [email or web address] DIOR- [email or web address]) Nutritional Asmnt/Malnutrition Patient General Information Nutritional Screening High Risk Diagnosis Chronic abdominal pain, left kidney mass Pertinent Medical Hx/Surgical Hx (No H&P) per nursing notes, Cardiac disease, GI problems, HTN, seizure, anxiety, depression Subjective Information Patient was admitted from SNF with Vomiting/diarrhea x 5 days. Patient stating his appetite has been poor but slightly improved. He states his stomach feels uneasy sometimes. He can chew and swallow all textures but would like to stick with soft textures that are easy to digest. He states he likes chocolate Ensures and likes eggs with breakfast. Current Diet Order/ Nutrition Support Cardiac, soft with Ensure Clear BID Patient / S.O Not Indicated Pertinent Medications Vitamin C, Lipitor, Dulcolax, D5-0.45NS, colace, MOM, Fleet enema Pertinent Labs (06/07) albumin 3.9 Nutritional Hx/Data Height 1.73 m Height (Calculated Centimeters) 172.7 Current Weight (lbs) 47.174 kg Weight (Calculated Kilograms) 47.2 Weight (Calculated Grams) 80213.6 [place] Body Weight 154 % [place] Body Weight 67 Body Mass Index (BMI) 15.7 Recent Weight Change No Weight Status Underweight GI Symptoms GI Symptoms Nausea Vomitting Diarrhea Last BM 06/08 Difficult in: None Food Allergies Yes: Shellfish Cultural/Ethnic/Congregation Belief none indicated Usual diet at home unknown Skin Integrity/Comment: Ivan Torres Estimated Nutritional Goals BEE in Kcals: Adj wt of IBW Calories/Kcals/Kg using IBW 70kg 25-30 kcal/kg Kcals Calculated ~0101-1105 kcal/day Protein: Adj wt of IBW Protein g/k.8-1 gm/kg using IBW Protein Calculated 55-70 gm/day Fluid: ml ~3125-2279 ml/day Nutritional Problem 1. Problem Problem Underweight related to Etiology possible poor appetite/intake aeb Signs/Symptoms: BMI 15.8 Intervention/Recommendation Comments 1. Continue Cardiac soft diet with Ensure clear BID as tolerated by patient. If medically appropriate, swicth to Ensure Enlive chocolate flavor as requested by patient . 2. Provide assistance with meals as needed and encourage oral intake to encourage weight gain. Expected Outcomes/Goals Expected Outcomes/Goals Oral intake <75% of meals, weight gain toward ideal body weight,
--- NOTE | 2018-06-09 15:35 | History & Physical ---
ADMIT DATE: 06/07/2018 CHIEF COMPLAINT: Left-sided flank and abdominal pain, short of breath. HISTORY OF PRESENT ILLNESS: The patient is a 63-year-old male admitted from the Emergency Room to telemetry floor of [facility] due to multiple complicated medical conditions. The patient had an abdominal ultrasound done in the [facility], which is repeated today revealed a 3-4 cm left kidney mass. This is really worried about the patient who really wanted to come to the hospital for further evaluation. However, the CT scan of abdomen and pelvis ordered by ER physician failed to mention left kidney mass. The patient is more concerned about his COPD with exacerbation. The patient does have short of breath. This is mostly due to his noncompliance with heavy smoking despite extensive education. The patient was started on RT protocol. Additionally, the patient does have history of chronic pain syndrome, which was multifactorial and kind of understandable. He has history of spinal tumor status post surgery extensively with complication. Lab murphy, the patient's UA revealed positive leukocyte esterase, 3+ bacteria. Urine culture and blood culture ordered, empiric antibiotic started, which will be adjusted accordingly. PAST MEDICAL HISTORY: COPD, pneumonia, coronary heart disease, questionable atrial fibrillation, seizure disorder, chronic pain syndrome, spinal tumor, urinary tract infection, sepsis. PAST SURGICAL HISTORY: Multiple spinal surgeries. MEDICATIONS: See medication reconciliation list. ALLERGIES: Questionable PENICILLIN, SHELLFISH. FAMILY HISTORY: Noncontributory. SOCIAL HISTORY: The patient is . He has 1 grownup daughter with some kind of intermittent relationship. The patient was a heavy smoker, still smoking moderately. Denies alcohol or IV drug use. REVIEW OF SYSTEMS: As per HPI. PHYSICAL EXAMINATION: GENERAL: Well-developed male in no acute distress. SKIN: Warm and dry. VITAL SIGNS: Basically stable except ____. CARDIAC: S1, S2. ABDOMEN: Benign. There is mild tenderness on the left side. EXTREMITIES: No clubbing, cyanosis, edema bilaterally ____. NEUROLOGICAL: Unremarkable. LABORATORY DATA: Reviewed as seen from the computer. UA revealed positive leukocyte esterase, 3+ bacteria. ASSESSMENT AND PLAN: 1. Left kidney mass on renal ultrasound as outpatient: Abdominal and pelvic CT scan failed to reveal it. We will repeat ultrasound. 2. Chronic obstructive pulmonary disease exacerbation: RT protocol and we will see if the patient needs Solu-Medrol or not and the patient is on telemetry floor. 3. Short of breath: Partially due to chronic obstructive pulmonary disease exacerbation, partially due to anxiety. 4. Chronic pain syndrome exacerbation: Adjust medication as needed. 5. Urinary tract infection: Urine culture and blood culture ordered, empiric antibiotics started which will be adjusted accordingly. 6. Anxiety and bipolar disorder, observe closely, adjust medications as needed. 7. Seizure: Continue medication. 8. History of atrial fibrillation, controlled. 9. Difficulty walking: Physical therapy and fall precaution be absent. 10. DVT prophylaxis. JOB# [id number]
[2018-06-09] MEDS: Hydrocodone/APAP 5mg/325mg Tab PO PRN ×4 (16:01→20:10)
[2018-06-09] MEDS: Atorvastatin Calcium 10 MG TAB PO SCH (20:09)
[2018-06-10] MEDS: Hydrocodone/APAP 5mg/325mg Tab PO PRN (02:05)
--- NOTE | 2018-06-10 08:00 | Diagnostic Imaging Report ---
Exam: Ultrasound exam of the kidneys History: Left adrenal mass Prior exams: None Findings: Real-time ultrasound summation kidneys was planes. The study demonstrates no evidence of obstructive uropathy or nephrolithiasis. Right kidney measures 10.5 x 3.7 x 5.7 cm in diameter contains a small 1 cm cyst in the upper pole of the right kidney Left kidney measures 10.1 x 4.4 x 4.8 cm. By technologist reported there is a hypoechoic mass superior to the left kidney which is not visualized on prior CT examination of the abdomen performed on 06/07/2018. IMPRESSION: Essentially unremarkable exam of the kidneys. The technologist reported there is a left suprarenal mass which is not visualized on the prior CT examination. Most likely represent bowel.
[2018-06-10] MEDS: HYDROmorphone 2 mg/mL 1mL Vial IVP PRN ×2 (10:53→21:01)
[2018-06-10] MEDS: Aspirin 81mg Chewable Tab PO SCH ×2 (11:05→11:48)
[2018-06-10] MEDS: Multivitamin w/ Minerals Tab PO SCH ×2 (11:06→11:48)
[2018-06-10] MEDS: Levofloxacin 750mg/150mL 750 MG/150 ML BAG IV SCH (11:51)
[2018-06-10 14:25] LABS: % BASOPHILS 1.3 % (0.0-2.0); % EOSINOPHILS 1.5 % (0.0-5.0); % LYMPHOCYTES 22.2 % (20.0-50.0); % MONOCYTES 11.1 % (2.0-10.0); % NEUTROPHILS 63.9 % (40.0-80.0); BASOPHILE ABSOLUTE 0.1 Th/cumm (0-0.2); EOSINOPHILE ABSOLUTE 0.1 Th/cmm (0.1-0.4); HEMATOCRIT 35.1 % (41.0-60); HEMOGLOBIN 11.7 gm/dL (12-16); LYMPHOCYTE ABSOLUTE 1.6 Th/cmm (1.5-3.0); MEAN CORPUSCULAR HEMOGLOBIN 33.3 pg (26.0-30.0); MEAN CORPUSCULAR HGB CONC 33.3 pg (28.0-36.0); MEAN PLATELET VOLUME 9.3 fl; MONOCYTE ABSOLUTE 0.8 Th/cmm (0.3-1.0); NEUTROPHILE ABSOLUTE 4.6 Th/cmm (1.8-8.0); PLATELET COUNT 174 Th/cmm (150-400); RED BLOOD COUNT 3.51 Mil/cmm (4.30-5.70); RED CELL DISTRIBUTION WIDTH 13.3 % (11.5-20.0); WHITE BLOOD COUNT 7.2 Th/cmm (4.8-10.8)
[2018-06-10 14:37] LABS: ANION GAP 10.7 (7.0-16.0); BUN - UREA NITROGEN 22 mg/dL (7-25); CALCIUM SERUM 8.7 mg/dL (8.6-10.3); CARBON DIOXIDE 26.5 mEq/L (21.0-31.0); CHLORIDE 105 mEq/L (98-107); CREATININE - SERUM 0.7 mg/dL (0.7-1.3); GFR AFRICAN-AMERICAN > 60.0 ml/min (>90); GFR NON AFRICAN-AMERICAN > 60.0 ml/min; GLUCOSE 92 mg/dL (70-105); POTASSIUM SERUM 4.2 mEq/L (3.5-5.1); SODIUM SERUM 138 mEq/L (136-145)
[2018-06-10] MEDS: Atorvastatin Calcium 10 MG TAB PO SCH (21:03)
--- NOTE | 2018-06-10 21:54 | Internal Medicine Prog Note ---
Internal Medicine Subjective - Subjective Service Date: 06/10/18 Patient seen and examined:: without staff Patient is:: awake, verbal, interactive, in bed Patient Complaints of:: congestion, SOB Per staff patient has:: no adverse event, no episodes of fall, eating well Internal Medicine Objective - Results Result Diagrams: 06/10/18 14:05 06/10/18 14:05 Recent Labs: Laboratory Last Values WBC 7.2 Th/cmm (4.8-10.8) 06/10/18 14:05 RBC 3.51 Mil/cmm (4.30-5.70) L 06/10/18 14:05 Hgb 11.7 gm/dL (12-16) L 06/10/18 14:05 Hct 35.1 % (41.0-60) L 06/10/18 14:05 MCV 100.0 fl (80-99) H 06/10/18 14:05 MCH 33.3 pg (26.0-30.0) H 06/10/18 14:05 MCHC Differential 33.3 pg (28.0-36.0) 06/10/18 14:05 RDW 13.3 % (11.5-20.0) 06/10/18 14:05 Plt Count 174 Th/cmm (150-400) 06/10/18 14:05 MPV 9.3 fl 06/10/18 14:05 Neutrophils % 63.9 % (40.0-80.0) 06/10/18 14:05 Lymphocytes % 22.2 % (20.0-50.0) 06/10/18 14:05 Monocytes % 11.1 % (2.0-10.0) H 06/10/18 14:05 Eosinophils % 1.5 % (0.0-5.0) 06/10/18 14:05 Basophils % 1.3 % (0.0-2.0) 06/10/18 14:05 Sodium 138 mEq/L (136-145) 06/10/18 14:05 Potassium 4.2 mEq/L (3.5-5.1) 06/10/18 14:05 Chloride 105 mEq/L (98-107) 06/10/18 14:05 Carbon Dioxide 26.5 mEq/L (21.0-31.0) 06/10/18 14:05 Anion Gap 10.7 (7.0-16.0) 06/10/18 14:05 BUN 22 mg/dL (7-25) 06/10/18 14:05 Creatinine 0.7 mg/dL (0.7-1.3) 06/10/18 14:05 Est GFR ( Amer) > 60.0 ml/min (>90) 06/10/18 14:05 Est GFR (Non-Af Amer) > 60.0 ml/min 06/10/18 14:05 BUN/Creatinine Ratio 31.4 06/10/18 14:05 Glucose 92 mg/dL (70-105) 06/10/18 14:05 Calcium 8.7 mg/dL (8.6-10.3) 06/10/18 14:05 Phosphorus 4.3 mg/dL (2.5-5.0) 06/07/18 15:09 Magnesium 2.0 mg/dL (1.9-2.7) 06/07/18 15:09 Total Bilirubin 0.2 mg/dL (0.3-1.0) L 06/07/18 15:09 AST 16 U/L (13-39) 06/07/18 15:09 ALT 13 U/L (7-52) 06/07/18 15:09 Alkaline Phosphatase 38 U/L (34-104) 06/07/18 15:09 Total Protein 6.5 gm/dL (6.0-8.3) 06/07/18 15:09 Albumin 3.9 gm/dL (4.2-5.5) L 06/07/18 15:09 Globulin 2.6 gm/dL 06/07/18 15:09 Albumin/Globulin Ratio 1.5 (1.0-1.8) 06/07/18 15:09 Amylase 43 U/L (29-103) 06/07/18 15:09 Lipase 18 U/L (11-82) 06/07/18 15:09 Urine Source CATH 06/07/18 17:20 Urine Color YELLOW 06/07/18 17:20 Urine Clarity HAZY (CLEAR) 06/07/18 17:20 Urine pH 6.5 (4.6 - 8.0) 06/07/18 17:20 Ur Specific Arnold 1.015 (1.005-1.030) 06/07/18 17:20 Urine Protein NEGATIVE mg/dL (NEGATIVE) 06/07/18 17:20 Urine Glucose (UA) NEGATIVE mg/dL (NEGATIVE) 06/07/18 17:20 Urine Ketones NEGATIVE mg/dL (NEGATIVE) 06/07/18 17:20 Urine Blood SMALL (NEGATIVE) H 06/07/18 17:20 Urine Nitrate NEGATIVE (NEGATIVE) 06/07/18 17:20 Urine Bilirubin NEGATIVE (NEGATIVE) 06/07/18 17:20 Urine Urobilinogen 0.2 E.U./dL (0.2 - 1.0) 06/07/18 17:20 Ur Leukocyte Esterase SMALL (NEGATIVE) H 06/07/18 17:20 Urine RBC 2-5 /hpf (0-5) H 06/07/18 17:20 Urine WBC 6-10 /hpf (0-5) 06/07/18 17:20 Ur Epithelial Cells FEW /lpf (FEW) 06/07/18 17:20 Urine Bacteria 3+ /hpf (NONE SEEN) H 06/07/18 17:20 Urine Opiates Screen POSITIVE (NEGATIVE) H 06/07/18 17:20 Urine Methadone Screen NEGATIVE (NEGATIVE) 06/07/18 17:20 Ur Barbiturates Screen NEGATIVE (NEGATIVE) 06/07/18 17:20 Ur Tricyclics Screen POSITIVE (NEGATIVE) H 06/07/18 17:20 Ur Phencyclidine Scrn NEGATIVE (NEGATIVE) 06/07/18 17:20 Amphetamines Screen POSITIVE (NEGATIVE) H 06/07/18 17:20 U Methamphetamines Scrn NEGATIVE (NEGATIVE) 06/07/18 17:20 U Benzodiazepines Scrn NEGATIVE (NEGATIVE) 06/07/18 17:20 U Cocaine Metab Screen NEGATIVE (NEGATIVE) 06/07/18 17:20 U Cannabinoids Screen POSITIVE (NEGATIVE) H 06/07/18 17:20 - Physical Exam Vitals and I&O: Vital Signs Temp 97.1 F 06/10/18 18:00 Pulse 87 06/10/18 18:00 Resp 20 06/10/18 18:00 BP 102/60 06/10/18 18:00 Pulse Ox 97 06/10/18 18:00 Intake & Output 06/10/18 06/10/18 06/11/18 06:59 18:59 06:59 Intake Total 300 150 Balance 300 150 Weight (lbs) 47.174 kg 47.174 kg Intake: Intake, IV Amount 150 Levofloxacin 750mg/150mL 150 750 mg In 150 ml @ 100 mls/hr IV Q24HR [facility] Rx#: [id number] Oral 300 Other: # Voids 1 Stool Characteristics Soft Weight Source Bedscale Bedscale Active Medications: Current Medications Acetaminophen/Hydrocodone Bitart ([place] 5mg/325mg) 2 tab PO Q4H PRN PRN Reason: Severe Pain Stop: 08/06/18 23:54 Last Admin: 06/10/18 02:05 Dose: 2 tab Albuterol/Ipratropium (Duoneb Neb) 3 ml HHN Q6H PRN PRN Reason: SOB/WHEEZING Stop: 08/06/18 23:54 Ascorbic Acid (Vitamin C) 500 mg PO DAILY [facility] Stop: 08/07/18 08:59 Last Admin: 06/10/18 11:49 Dose: 500 mg Aspirin (Aspirin Chewable) 162 mg PO DAILY [facility] Stop: 08/07/18 08:59 Last Admin: 06/10/18 11:48 Dose: 162 mg Atorvastatin Calcium (Lipitor) 20 mg PO HS [facility]; Protocol Stop: 08/07/18 20:59 Last Admin: 06/10/18 21:03 Dose: Not Given Bisacodyl (Dulcolax 10 Mg Supp) 10 mg RC DAILY PRN PRN Reason: IF MOM INEFFECTIVE Stop: 08/06/18 23:54 Diphenhydramine HCl (Benadryl) 50 mg PO Q6H PRN PRN Reason: ITCHINESS Stop: 08/06/18 23:54 Docusate Sodium (Colace) 100 mg PO BID [facility] Stop: 08/07/18 08:59 Last Admin: 06/10/18 18:01 Dose: Not Given Duloxetine HCl (Cymbalta) 30 mg PO BID [facility] Stop: 08/07/18 08:59 Gabapentin (Neurontin) 800 mg PO TID [facility] Stop: 08/07/18 08:59 Last Admin: 06/10/18 21:02 Dose: 800 mg Hydromorphone HCl (Dilaudid) 2 mg IVP Q4HR PRN PRN Reason: Pain (Severe) Stop: 08/06/18 22:04 Last Admin: 06/10/18 21:01 Dose: 2 mg Hydromorphone HCl (Dilaudid) 2 mg PO Q4HR PRN PRN Reason: BREAKTHROUGH PAIN Stop: 08/06/18 23:54 Dextrose/Sodium Chloride (D5-0.45ns) 1,000 mls @ 75 mls/hr IV .[id number] [facility] Stop: 08/07/18 00:14 Last Admin: 06/08/18 09:06 Dose: 75 mls/hr Levofloxacin (Levaquin Pb) 750 mg in 150 mls @ 100 mls/hr IV Q24HR [facility] Stop: 08/08/18 11:44 Last Infusion: 06/10/18 13:21 Dose: Infused Isosorbide Mononitrate (Imdur) 30 mg PO DAILY [facility] Stop: 08/07/18 08:59 Last Admin: 06/10/18 11:49 Dose: Not Given Lisinopril (Zestril) 10 mg PO DAILY [facility] Stop: 08/07/18 08:59 Last Admin: 06/10/18 11:49 Dose: Not Given Lorazepam (Ativan) 1 mg PO BID [facility]; Protocol Stop: 08/07/18 08:59 Last Admin: 06/10/18 18:02 Dose: Not Given Magnesium Hydroxide (Milk Of Magnesia) 30 ml PO DAILY PRN PRN Reason: Constipation Stop: 08/06/18 23:54 Metoprolol Succinate (Toprol Xl) 25 mg PO BID [facility] Stop: 08/07/18 08:59 Last Admin: 06/10/18 16:49 Dose: Not Given Mupirocin (Bactroban Oint) 1 appl NS BID [facility] Stop: 06/15/18 09:01 Last Admin: 06/10/18 18:02 Dose: Not Given Nitroglycerin (Nitrostat) 0.4 mg SL Q5MIN PRN PRN Reason: Chest Pain Stop: 08/06/18 23:54 Quetiapine Fumarate (Seroquel) 100 mg PO BID [facility]; Protocol Stop: 08/07/18 08:59 Last Admin: 06/10/18 18:02 Dose: Not Given Senna (Senna) 8.6 mg PO HS [facility] Stop: 08/07/18 20:59 Last Admin: 06/10/18 21:03 Dose: Not Given Sodium Phosphate (Fleet Enema) 118 ml RC Q72H PRN PRN Reason: IF DULCOLAX INEFFECTIVE Stop: 08/06/18 23:54 General: weak, lethargic, congested HEENT: NC/AT, PERRLA, throat clear Neck: Supple, No JVD Lungs: wheezing Cardiovascular: RRR, Normal S1, Normal S2 Abdomen: soft, tender Extremities: clear, pedal pulses Neurological: no change - Procedures Procedures: Procedures Procedure Code Date DRAINAGE OF STOMACH WITH DRAINAGE DEVICE, VIA OPENING [id number] 01/21/18 RELEASE PERITONEUM, OPEN APPROACH [id number] 01/21/18 RESECTION OF LEFT LARGE INTESTINE, OPEN APPROACH [id number] 01/21/18 TRANSFUSE NONAUT RED BLOOD CELLS IN PERIPH VEIN, PERC [id number] 01/21/18 Internal Medicine Assmt/Plan - Assessment Assessment: COPD exacerbation: RT protocol; Solumedrol? Left Kidney mass? renal U/S negative. Chronic pain syndrome exacerbation: pain control. SOB: on and off; multifactorial. Anxiety: ativan PRN h/o spinal tumor: s/p surgeries. Seizure: monitoring. UTI: pending final C&S; adjust ABX accordingly. Nutritional Asmnt/Malnutr-PDOC - Dietary Evaluation Malnutrition Findings (Please click <Entered> for more info): Nutritional Asmnt/Malnutrition Start: 06/08/18 11: 19 Text: Status: Complete Freq: Protocol: Document 06/08/18 11:19 CARLOS (Rec: 06/08/18 11:37 [email or web address] DIOR- [email or web address]) Nutritional Asmnt/Malnutrition Patient General Information Nutritional Screening High Risk Diagnosis Chronic abdominal pain, left kidney mass Pertinent Medical Hx/Surgical Hx (No H&P) per nursing notes, Cardiac disease, GI problems, HTN, seizure, anxiety, depression Subjective Information Patient was admitted from SNF with Vomiting/diarrhea x 5 days. Patient stating his appetite has been poor but slightly improved. He states his stomach feels uneasy sometimes. He can chew and swallow all textures but would like to stick with soft textures that are easy to digest. He states he likes chocolate Ensures and likes eggs with breakfast. Current Diet Order/ Nutrition Support Cardiac, soft with Ensure Clear BID Patient / S.O Not Indicated Pertinent Medications Vitamin C, Lipitor, Dulcolax, D5-0.45NS, colace, MOM, Fleet enema Pertinent Labs (06/07) albumin 3.9 Nutritional Hx/Data Height 1.73 m Height (Calculated Centimeters) 172.7 Current Weight (lbs) 47.174 kg Weight (Calculated Kilograms) 47.2 Weight (Calculated Grams) 72174.6 Corry Body Weight 154 % Corry Body Weight 67 Body Mass Index (BMI) 15.7 Recent Weight Change No Weight Status Underweight GI Symptoms GI Symptoms Nausea Vomitting Diarrhea Last BM 06/08 Difficult in: None Food Allergies Yes: Shellfish Cultural/Ethnic/[employer] Belief none indicated Usual diet at home unknown Skin Integrity/Comment: Ivan Torres Estimated Nutritional Goals BEE in Kcals: Adj wt of IBW Calories/Kcals/Kg using IBW 70kg 25-30 kcal/kg Kcals Calculated ~9112-7980 kcal/day Protein: Adj wt of IBW Protein g/k.8-1 gm/kg using IBW Protein Calculated 55-70 gm/day Fluid: ml ~0384-3597 ml/day Nutritional Problem 1. Problem Problem Underweight related to Etiology possible poor appetite/intake aeb Signs/Symptoms: BMI 15.8 Intervention/Recommendation Comments 1. Continue Cardiac soft diet with Ensure clear BID as tolerated by patient. If medically appropriate, swicth to Ensure Enlive chocolate flavor as requested by patient . 2. Provide assistance with meals as needed and encourage oral intake to encourage weight gain. Expected Outcomes/Goals Expected Outcomes/Goals Oral intake <75% of meals, weight gain toward ideal body weight,
[2018-06-11] MEDS: Hydrocodone/APAP 5mg/325mg Tab PO PRN (01:21)
== END 2018-06-11 07:45 | DRG 191 ==
LOC: ER 14:15 → MSI 18:40 → TELE 20:43 → MSI 20:43 → TELE 06-08 03:08
PROVIDERS: ADMIT Internal Medicine; ATTEND Internal Medicine
DX: J44.1 Chronic obstructive pulmonary disease with (acute) exacerbation (principal); F11.20 Opioid dependence, uncomplicated; N39.0 Urinary tract infection, site not specified; R64 Cachexia; G89.4 Chronic pain syndrome; I10 Essential (primary) hypertension; I48.91 Unspecified atrial fibrillation; D64.9 Anemia, unspecified; I25.10 Atherosclerotic heart disease of native coronary artery without angina pectoris; G40.909 Epilepsy, unspecified, not intractable, without status epilepticus; N28.89 Other specified disorders of kidney and ureter; F41.9 Anxiety disorder, unspecified; Z85.848 Personal history of malignant neoplasm of other parts of nervous tissue; Z82.49 Family history of ischemic heart disease and other diseases of the circulatory system; Z83.3 Family history of diabetes mellitus; Z91.14 Patient's other noncompliance with medication regimen; Z86.73 Personal history of transient ischemic attack (TIA), and cerebral infarction without residual deficits; Z68.35 Body mass index [BMI] 35.0-35.9, adult
CPT/HCPCS: 36415-UA; 72125-TC; 72128-TC; 76770-TC; 80048-TC; 80053-TC; 80307; 81001-TC; 82150-TC; 83690-TC; 83735-TC; 84100-TC; 85025-TC; 87086-90; 93005; 94760; 96374; 96375; J1170; J1956; J2270; J7040; Z7610

== ENCOUNTER 2018-08-28 15:15 | Emergency (ER) | payer MEDICARE, MEDICAID ==
[2018-08-28] MEDS ORDERED: Sodium Chloride 0.9% 1,000 ML IV ONE (15:44)
--- NOTE | 2018-08-28 16:04 | ED Physician Chart ---
ED Chief Complaint/HPI - Patient Information Date Seen:: 08/28/18 Time Seen:: 15:45 Chief Complaint:: Abdominal Pain History of Present Illness:: onset x 3 days of Abdominal Pain, N/V/D x 9; no report of trauma, H/As, S/T, neck pain, C/P, SOB, A/C, fever, chills, or urinary s/s Allergies:: Allergies Allergy/AdvReac Type Severity Reaction Status Date / Time ketorolac [From Toradol] Allergy Verified 10/24/17 15:28 shellfish derived Allergy Verified 06/07/18 14:58 pcn Allergy Uncoded 02/27/13 16:09 Vitals:: Vital Signs - 8 hr 08/28/18 15:47 Temp 98.7 F HR 99 RR 16 BP 137/79 O2 Sat % 98 Historian:: Patient, EMS Review:: Nurse's Note Reviewed, Old Chart Reviewed, EMS run form Reviewed <Orlando Madrigal - Last Filed: 08/28/18 17:21> - Patient Information Allergies:: Allergies Allergy/AdvReac Type Severity Reaction Status Date / Time ketorolac [From Toradol] Allergy Verified 10/24/17 15:28 shellfish derived Allergy Verified 06/07/18 14:58 pcn Allergy Uncoded 02/27/13 16:09 Vitals:: Vital Signs - 8 hr 08/28/18 08/28/18 15:47 18:15 Temp 98.7 F HR 99 91 RR 16 BP 137/79 137/66 O2 Sat % 98 <Cristino Lopez - Last Filed: 08/28/18 19:28> ED Review of Systems - Review of Systems General/Constitutional: No fever, No chills, No weight loss, No weakness, No diaphoresis, No edema, No loss of appetite Skin: No skin lesions, No rash, No bruising Head: No headache, No light-headedness Eyes: No loss of vision, No pain, No diplopia ENT: No earache, No nasal drainage, No sore throat, No tinnitus Neck: No neck pain, No swelling, No thyromegaly, No stiffness, No mass noted Cardio Vascular: No chest pain, No palpitations, No PND, No orthopnea, No edema Pulmonary: No SOB, No cough, No sputum, No wheezing GI: Nausea, Vomiting, Diarrhea, Pain, No melena, No hematochezia, No constipation, No hematemesis G/U: No dysuria, No frequency, No hematuria, No nacturia Musculoskeletal: No bone or joint pain, No back pain, No muscle pain Endocrine: No polyuria, No polydipsia Psychiatric: Prior psych history, Depression, Anxiety, No suicidal ideation, No homicidal ideation, No auditory hallucination, No visual hallucination Hematopoietic: No bruising, No lymphadenopathy Allergic/Immuno: No urticaria, No angioedema Neurological: No syncope, No focal symptoms, No weakness, No paresthesia, No headache, No seizure, No dizziness, No confusion, No vertigo <RohanOrlando - Last Filed: 08/28/18 17:21> ED Past Medical History - Past Medical History Obtainable: Yes Past Medical History: HTN, CAD, Asthma/COPD, Dyslipidemia, PUD/GERD, Arthritis Family History: HTN Social History: Non Smoker, No Alcohol, No Drug Use, , Care Facility Surgical History: None Psychiatricy History: Bipolar Medication: Reviewed <Orlando Madrigal Last Filed: 08/28/18 17:21> Family Medical History - Family Member Mother History Unknown: Yes Ethnicity: Non- Living Status: Hx Family Cancer: Yes Hx Family Hypertension: Yes Hx Family Diabetes: Yes Father History Unknown: Yes Hx Family Cancer: Yes <Orlando Madrigal Last Filed: 08/28/18 17:21> ED Physical Exam - Physical Examination General/Constitutional: Awake, Well-developed, well-nourished, Alert, No distress, GCS 15, Non-toxic appearing, Ambulatory Head: Atraumatic Eyes: Lids, conjuctiva normal, PERRL, EOMI Skin: Nl inspection, No rash, No skin lesions, No ecchymosis, Well hydrated, No lymphadenopathy ENMT: External ears, nose nl, TM canals nl, Nasal exam nl, Lips, teeth, gums nl , Oropharynx nl, Tonsils nl Neck: Nontender, Full ROM w/o pain, No JVD, No nuchal rigidity, No bruit, No mass, No stridor Other Neck comments:: supple; no meningeal signs Respiratory: Nl effort/Exclusion, Clear to Auscultation, No Wheeze/Rhonchi/Rales Cardio Vascular: RRR, No murmur, gallop, rubs, NL S1 S2, Carotid/Femoral/Distal pulses equal bilaterally GI: No tenderness/rebounding/guarding, No organomegaly, No hernia, Normal BS's, Nondistended, No mass/bruits, No McBurney tenderness, Rectum exam nl Other GI comments:: no pulsatile masses : No CVA tenderness Extremities: No tenderness or effusion, Full ROM, normal strength in all extremities, No edema, Normal digits & nails Neuro/Psych: Alert/oriented, DTR's symmetric, Normal sensory exam, Normal motor strength, Judgement/insight normal, Mood normal, Normal gait, No focal deficits Misc: Normal back, No paraspinal tenderness <Orlando Madrigal - Last Filed: 08/28/18 17:21> ED Labs/Radiology/EKG Results - Lab Results Comments:: Reviewed - EKG Interpretations EKG Time:: 16:10 Rate & Rhythm: 95; NSR Comments:: RAD; non-specific st-t changes <Orlando Madrigal - Last Filed: 08/28/18 17:21> - Lab Results Results: Laboratory Tests 08/28/18 08/28/18 08/28/18 16:05 16:05 16:05 WBC 9.6 RBC 3.81 L Hgb 12.4 Hct 38.5 L MCV 101.1 H MCH 32.6 H MCHC Differential 32.2 RDW 13.0 Plt Count 257 MPV 8.5 Neutrophils % 72.7 Lymphocytes % 14.9 L Monocytes % 10.7 H Eosinophils % 1.0 Basophils % 0.7 PT INR PTT (Actin FS) Sodium 142 Potassium 3.4 L Chloride 104 Carbon Dioxide 28.1 Anion Gap 13.3 BUN 21 Creatinine 0.8 Est GFR ( Amer) > 60.0 Est GFR (Non-Af Amer) > 60.0 BUN/Creatinine Ratio 26.3 Glucose 107 H Whole Bld Lactic Acid Calcium 9.3 Total Bilirubin 0.4 AST 37 ALT 42 Alkaline Phosphatase 50 Troponin I 0.02 Total Protein 7.1 Albumin 4.2 Globulin 2.9 Albumin/Globulin Ratio 1.5 Amylase 43 Lipase 45 08/28/18 08/28/18 16:05 16:05 WBC RBC Hgb Hct MCV MCH MCHC Differential RDW Plt Count MPV Neutrophils % Lymphocytes % Monocytes % Eosinophils % Basophils % PT 9.3 L INR 0.88 PTT (Actin FS) 24.5 L Sodium Potassium Chloride Carbon Dioxide Anion Gap BUN Creatinine Est GFR ( Amer) Est GFR (Non-Af Amer) BUN/Creatinine Ratio Glucose Whole Bld Lactic Acid 0.97 Calcium Total Bilirubin AST ALT Alkaline Phosphatase Troponin I Total Protein Albumin Globulin Albumin/Globulin Ratio Amylase Lipase <Cristino Lopez - Last Filed: 08/28/18 19:28> ED Assessment - Assessment General Assessment: PT AWAKE ALERT NO ACUTE DISTRESS LABS OK PLAN TO SEND BACK <Cristino Lopez - Last Filed: 08/28/18 19:28> ED Septic Shock - . Is Septic Shock (SBP<90, OR Lactate>4 mmol\L) present?: No - <6hrs of presentation: Vital Signs: Vital Signs - 8 hr 08/28/18 15:47 Temp 98.7 F HR 99 RR 16 BP 137/79 O2 Sat % 98 <Orlando Madrigal - Last Filed: 08/28/18 17:21> - <6hrs of presentation: Vital Signs: Vital Signs - 8 hr 08/28/18 08/28/18 15:47 18:15 Temp 98.7 F HR 99 91 RR 16 BP 137/79 137/66 O2 Sat % 98 <Cristino Lopez - Last Filed: 08/28/18 19:28> ED Reassessment (Disposition) - Reassessment Reassessment Condition:: Improved - Diagnosis Diagnosis:: Abdominal Pain; N/V/D; AGE <Orlando Madrigal - Last Filed: 08/28/18 17:21> - Patient Disposition Discharge/Transfer:: Home Condition at Disposition:: Stable <Cristino Lopez - Last Filed: 08/28/18 19:28>
[2018-08-28 16:11] LABS: % BASOPHILS 0.7 % (0.0-2.0); % LYMPHOCYTES 14.9 % (20.0-50.0); % MONOCYTES 10.7 % (2.0-10.0); % NEUTROPHILS 72.7 % (40.0-80.0); BASOPHILE ABSOLUTE 0.1 Th/cumm (0-0.2); EOSINOPHILE ABSOLUTE 0.1 Th/cmm (0.1-0.4); HEMATOCRIT 38.5 % (41.0-60); HEMOGLOBIN 12.4 gm/dL (12-16); LYMPHOCYTE ABSOLUTE 1.4 Th/cmm (1.5-3.0); MEAN CELL VOLUME 101.1 fl (80-99); MEAN CORPUSCULAR HEMOGLOBIN 32.6 pg (26.0-30.0); MEAN CORPUSCULAR HGB CONC 32.2 pg (28.0-36.0); MEAN PLATELET VOLUME 8.5 fl; PLATELET COUNT 257 Th/cmm (150-400); RED BLOOD COUNT 3.81 Mil/cmm (4.30-5.70); WHITE BLOOD COUNT 9.6 Th/cmm (4.8-10.8)
[2018-08-28 16:23] LABS: INR 0.88 (0.5-1.4); PROTHROMBIN TIME (TEST) 9.3 SECONDS (9.5-11.5)
[2018-08-28 16:24] LABS: ALB/GLOB RATIO 1.5 (1.0-1.8); ALBUMIN 4.2 gm/dL (4.2-5.5); ALKALINE PHOSPHATASE 50 U/L (34-104); AMYLASE SERUM 43 U/L (29-103); ANION GAP 13.3 (7.0-16.0); BILIRUBIN,TOTAL 0.4 mg/dL (0.3-1.0); BUN - UREA NITROGEN 21 mg/dL (7-25); CALCIUM SERUM 9.3 mg/dL (8.6-10.3); CARBON DIOXIDE 28.1 mEq/L (21.0-31.0); CHLORIDE 104 mEq/L (98-107); CREATININE - SERUM 0.8 mg/dL (0.7-1.3); GFR AFRICAN-AMERICAN > 60.0 ml/min (>90); GFR NON AFRICAN-AMERICAN > 60.0 ml/min; GLUCOSE 107 mg/dL (70-105); LIPASE 45 U/L (11-82); POTASSIUM SERUM 3.4 mEq/L (3.5-5.1); SGOT 37 U/L (13-39); SGPT/ALT 42 U/L (7-52); SODIUM SERUM 142 mEq/L (136-145); TOTAL PROTEIN,SERUM 7.1 gm/dL (6.0-8.3)
[2018-08-28] MEDS ORDERED: Haloperidol Lactate 5 mg/mL 1mL Vial IVP ONE (16:51)
[2018-08-28] MEDS ORDERED: Haloperidol Lactate 5 mg/mL 1mL Vial ONE ×2 (16:53→17:07)
[2018-08-28] MEDS ORDERED: Potassium Chloride 20 mEq ER Tab PO ONE ×2 (17:22→17:29)
--- NOTE | 2018-08-29 08:06 | Diagnostic Imaging Report ---
Portable chest x-ray Time: 16 09 History: Pain Allowing for portable technique the heart size is normal. No focal pulmonary parenchymal processes. No hilar or mediastinal abnormalities. Impression: No acute abnormalities.
== END 2018-08-28 20:45 ==
LOC: ER 15:15
DX: K52.9 Noninfective gastroenteritis and colitis, unspecified (principal); I10 Essential (primary) hypertension; I25.10 Atherosclerotic heart disease of native coronary artery without angina pectoris; E78.5 Hyperlipidemia, unspecified; M19.90 Unspecified osteoarthritis, unspecified site; K21.9 Gastro-esophageal reflux disease without esophagitis; Z88.6 Allergy status to analgesic agent; Z91.013 Allergy to seafood; Z88.0 Allergy status to penicillin
CPT/HCPCS: 99284; 96374; 96375; 93005; 71045; 84484; 36415; 83605; 85025; 85610; 85730; 82150; 83690; 80053; 87040; J2060; J2405; J1200; J1630; J7030; Z7502